=== PATIENT | male | born 1975 | race Caucasian/White ===

== ENCOUNTER 2020-04-11 13:06 | Outpatient (RCR) | payer OTHER, SELFPAY ==
[2020-01-12 12:21] LABS: INR 2.7; Prothrombin Time 28.2 Seconds (11.1-14.7)
[2020-04-08 13:21] LABS: INR 3.5; Prothrombin Time 34.9 Seconds (11.1-14.7)
[2020-04-11 14:09] LABS: INR 3.7; Prothrombin Time 36.4 Seconds (11.1-14.7)
== END 2020-04-11 23:59 | disposition home or self-care (01) ==
LOC: ANHLAB 13:06
DX: I48.20 Chronic atrial fibrillation, unspecified (principal)
CPT/HCPCS: 36415; 85610

== ENCOUNTER 2020-06-10 12:19 | Outpatient (CLI) | payer OTHER, SELFPAY ==
[2020-06-10 13:24] LABS: Basophils Percent Auto 0.3 % (0.2-1.2); Eosinophils Absolute Auto 0.1 K/mm3 (0-0.3); Eosinophils Percent Auto 1.1 % (0-4.4); Hematocrit 50.4 % (42.0-52.0); Hemoglobin 17.1 g/dL (14.0-18.0); Immature Granulocyte Absolute 0.02 K/mm3 (0.00-0.031); Immature Granulocyte Percent A 0.3 % (0-0.5); Immature Platelet Fraction Pct 6.7 % (0.9-11.2); Lymphocytes Absolute Auto 2.39 K/mm3 (0.9-3.2); Lymphocytes Percent Auto 36.3 % (18.3-44.2); Mean Corpuscular HGB Conc 33.9 g/dl (32-36); Mean Corpuscular Hemoglobin 29.7 pg (26-34); Mean Corpuscular Volume 87.5 fl (80-100); Mean Platelet Volume 11.7 fl (7.4-10.4); Monocytes Absolute Auto 0.5 K/mm3 (0.1-0.6); Monocytes Percent Auto 6.8 % (2.6-8.5); Neutrophils Absolute Auto 3.6 K/mm3 (1.3-6.7); Neutrophils Percent Auto 55.2 % (45.5-73.1); Platelet Count Result 141 k/mm3 (150-375); Red Blood Count 5.76 M/mm3 (4.6-6.20); Red Cell Distribution Width 12.8 % (11.5-14.5); White Blood Count 6.6 K/mm3 (4.5-10.0)
[2020-06-10 13:35] LABS: Alanine Aminotransferase 29 U/L (4-50); Albumin Level 4.3 g/dL (3.5-5.1); Alkaline Phosphatase 77 U/L (38-126); Anion Gap 6 mmol/L (8-16); Aspartate Amino Transferase 28 U/L (17-59); Bilirubin,Total 0.5 mg/dL (0.2-1.3); Blood Urea Nitrogen 16 mg/dL (9-20); Calcium 8.8 mg/dL (8.4-10.2); Carbon Dioxide 25 mmol/L (22-30); Chloride 108 mmol/L (98-107); Estimated Glomerular Filt Rate > 60; Glucose 89 mg/dL (75-110); Potassium 4.1 mmol/L (3.4-5.0); Sodium 139 mmol/L (137-145)
[2020-06-10 14:24] LABS: Free T4 Free Thyroxine 0.85 ng/mL (0.78-2.19); Vitamin D 25 Hydroxy 36.9 ng/mL
== END 2020-06-10 12:20 | disposition home or self-care (01) ==
DX: R53.83 Other fatigue (principal)
CPT/HCPCS: 36415; 80053; 82306; 84439; 84443; 85025; 85055

== ENCOUNTER 2020-06-30 14:27 | Outpatient (CLI) | payer OTHER, SELFPAY ==
[2020-06-30 15:10] LABS: Basophils Percent Auto 0.4 % (0.2-1.2); Eosinophils Absolute Auto 0.1 K/mm3 (0-0.3); Eosinophils Percent Auto 1.5 % (0-4.4); Hematocrit 47.3 % (42.0-52.0); Hemoglobin 16.4 g/dL (14.0-18.0); Immature Granulocyte Absolute 0.03 K/mm3 (0.00-0.031); Immature Granulocyte Percent A 0.4 % (0-0.5); Immature Platelet Fraction Pct 4.5 % (0.9-11.2); Lymphocytes Absolute Auto 2.59 K/mm3 (0.9-3.2); Lymphocytes Percent Auto 35.7 % (18.3-44.2); Mean Corpuscular HGB Conc 34.7 g/dl (32-36); Mean Corpuscular Volume 86.5 fl (80-100); Mean Platelet Volume 11.1 fl (7.4-10.4); Monocytes Absolute Auto 0.6 K/mm3 (0.1-0.6); Monocytes Percent Auto 7.6 % (2.6-8.5); Neutrophils Absolute Auto 3.9 K/mm3 (1.3-6.7); Neutrophils Percent Auto 54.4 % (45.5-73.1); Platelet Count Result 143 k/mm3 (150-375); Red Blood Count 5.47 M/mm3 (4.6-6.20); Red Cell Distribution Width 12.9 % (11.5-14.5); White Blood Count 7.3 K/mm3 (4.5-10.0)
== END 2020-06-30 14:28 | disposition home or self-care (01) ==
DX: D69.6 Thrombocytopenia, unspecified (principal)
CPT/HCPCS: 36415; 85025; 85055; 85610

== ENCOUNTER 2020-07-12 11:21 | Outpatient (RCR) | payer OTHER, SELFPAY ==
[2020-04-26 12:17] LABS: INR 3.3; Prothrombin Time 32.9 Seconds (11.1-14.7)
[2020-05-09 12:11] LABS: INR 2.5; Prothrombin Time 26.3 Seconds (11.1-14.7)
[2020-05-31 15:53] LABS: INR 2.6; Prothrombin Time 27.6 Seconds (11.1-14.7)
[2020-06-30 09:57] LABS: INR 1.7; Prothrombin Time 19.3 Seconds (11.1-14.7)
[2020-07-12 11:45] LABS: INR 2.2; Prothrombin Time 23.8 Seconds (11.1-14.7)
== END 2020-07-25 23:59 | disposition home or self-care (01) ==
LOC: ANHLAB 11:21
DX: I48.20 Chronic atrial fibrillation, unspecified (principal)
CPT/HCPCS: 36415; 85610

== ENCOUNTER 2020-07-14 15:44 | Outpatient (CLI) | payer OTHER, SELFPAY ==
[2020-07-14 16:00] LABS: Basophils Percent Auto 0.3 % (0.2-1.2); Eosinophils Absolute Auto 0.1 K/mm3 (0-0.3); Eosinophils Percent Auto 0.9 % (0-4.4); Hematocrit 49.5 % (42.0-52.0); Hemoglobin 17.1 g/dL (14.0-18.0); Immature Granulocyte Absolute 0.03 K/mm3 (0.00-0.031); Immature Granulocyte Percent A 0.4 % (0-0.5); Lymphocytes Absolute Auto 2.48 K/mm3 (0.9-3.2); Lymphocytes Percent Auto 32.6 % (18.3-44.2); Mean Corpuscular HGB Conc 34.5 g/dl (32-36); Mean Corpuscular Hemoglobin 29.5 pg (26-34); Mean Corpuscular Volume 85.3 fl (80-100); Mean Platelet Volume 10.7 fl (7.4-10.4); Monocytes Absolute Auto 0.5 K/mm3 (0.1-0.6); Monocytes Percent Auto 6.4 % (2.6-8.5); Neutrophils Absolute Auto 4.5 K/mm3 (1.3-6.7); Neutrophils Percent Auto 59.4 % (45.5-73.1); Platelet Count Result 143 k/mm3 (150-375); White Blood Count 7.6 K/mm3 (4.5-10.0)
[2020-07-14 16:57] LABS: Iron 86 ug/dL (49-181)
[2020-07-14 17:00] LABS: Alanine Aminotransferase 22 U/L (4-50); Albumin Level 4.2 g/dL (3.5-5.1); Alkaline Phosphatase 70 U/L (38-126); Anion Gap 10 mmol/L (8-16); Aspartate Amino Transferase 27 U/L (17-59); Bilirubin,Total 0.6 mg/dL (0.2-1.3); Blood Urea Nitrogen 19 mg/dL (9-20); Calcium 8.9 mg/dL (8.4-10.2); Carbon Dioxide 23 mmol/L (22-30); Chloride 109 mmol/L (98-107); Estimated Glomerular Filt Rate > 60; Glucose 96 mg/dL (75-110); Potassium 4.4 mmol/L (3.4-5.0); Sodium 142 mmol/L (137-145)
[2020-07-14 17:08] LABS: Percent Iron Saturation 26 % (20-50)
[2020-07-14 18:09] LABS: Folic Acid > 20.0 ng/mL (2.76->20)
== END 2020-07-14 15:45 | disposition home or self-care (01) ==
PROVIDERS: Visit Provider Internal Medicine Hematology & Oncology
DX: D69.59 Other secondary thrombocytopenia (principal)
CPT/HCPCS: 36415; 80053; 82607; 82728; 82746; 83540; 83550; 85025

== ENCOUNTER 2020-07-31 09:42 | Outpatient (CLI) | payer OTHER, SELFPAY ==
--- NOTE | ~2020-07-31 | US_ITS ---
EXAMINATION: US abdomen complete EXAM DATE: 07/31/2020 10:28 INDICATION: Secondary thrombocytopenia. TECHNIQUE: Multiple grayscale and Doppler images of the complete abdomen were obtained (by a technolo gist who performed the scan) and subsequently reviewed. There is no prior study for comparison. FINDINGS: Inferior vena cava and aorta are poorly visualized from overlying bowel gas. Pancreas is not visuali zed. Poorly evaluated liver, poor acoustic window. There are no focal liver lesions identified. There i s no evidence of intrahepatic biliary duct dilation. Portal venous flow was seen in the hepatopedal, normal direction and has normal Doppler waveform. Common bile duct measures 5 mm, which is normal. The gallbladder wall is normal in thickness, with ex pected amount of distention. No sonographic evidence of pericholecystic fluid. There is cholelithia sis. Technologist performing exam reports patient did not demonstrate sonographic Hanna's sign. P mary note that this sign is less reliable in patients who have received pain medication. Right kidney: There is normal contour and echogenicity. It measures 14.3 x 7.5 x 6.4 centimeters. There are no focal renal lesions identified. There is no hydronephrosis. Left kidney: There is normal contour and echogenicity. It measures 13.9 x 7.2 x 6.3 centimeters. T here are no focal renal lesions identified. There is no hydronephrosis. The spleen measures 14.5 centimeters, mildly enlarged. IMPRESSION: 1. Mild splenomegaly. Reviewed, dictated and finalized at location A. IMPRESSION: 1. Mild splenomegaly.
== END 2020-07-31 09:43 | disposition home or self-care (01) ==
PROVIDERS: PCP Nurse Practitioner Family; Visit Provider Internal Medicine Hematology & Oncology
DX: D68.59 Other primary thrombophilia (principal); R16.1 Splenomegaly, not elsewhere classified
CPT/HCPCS: 76700

== ENCOUNTER 2020-10-03 13:42 | Outpatient (RCR) | payer OTHER, SELFPAY ==
[2020-08-08 13:10] LABS: INR 1.8; Prothrombin Time 21.8 Seconds (11.1-14.7)
[2020-08-17 11:10] LABS: INR 1.9; Prothrombin Time 22.7 Seconds (11.1-14.7)
[2020-08-29 10:46] LABS: INR 2.3
[2020-10-03 14:23] LABS: INR 2.5; Prothrombin Time 27.3 Seconds (11.1-14.7)
== END 2020-11-06 23:59 | disposition home or self-care (01) ==
LOC: ANHLAB 13:42
PROVIDERS: PCP Nurse Practitioner Family; Visit Provider Nurse Practitioner Family
DX: I48.20 Chronic atrial fibrillation, unspecified (principal)
CPT/HCPCS: 36415; 85610

== ENCOUNTER 2021-02-02 16:01 | Outpatient (RCR) | payer OTHER, SELFPAY ==
[2020-11-15 10:33] LABS: INR 2.5; Prothrombin Time 27.4 Seconds (11.1-14.7)
[2020-12-16 17:12] LABS: INR 2.1; Prothrombin Time 24.2 Seconds (11.1-14.7)
[2021-02-02 17:25] LABS: Prothrombin Time 22.9 Seconds (11.1-14.7)
== END 2021-02-13 23:59 | disposition home or self-care (01) ==
LOC: ANHLAB 16:01
PROVIDERS: PCP Nurse Practitioner Family; Visit Provider Nurse Practitioner Family
DX: I48.20 Chronic atrial fibrillation, unspecified (principal)
CPT/HCPCS: 36415; 85610

== ENCOUNTER 2021-04-12 10:30 | Outpatient (RCR) | payer OTHER, SELFPAY ==
--- NOTE | 2021-02-22 11:06 | PTOPEVAL ---
Thank you for referring Franklin Bejarano to [facility].? The patient is scheduled to be seen for therapy? 2 x/week for 3-4 weeks. Please review, sign, date and return this plan of care KAMILLA. I agree with and certify that the following plan of care is medically necessary. Referring Physician Date Attending Provider: Amy Sharma, MEDICAL SUPERVISOR Diagnosis right and left shoulder pain Onset Oct 2020 Cause unknown Subjective Information He reports increased shoulder Query Text:As Reported By Patient/ pain and muscle soreness. He c Family /o su pec region tightness. He c/o dull pain. Denies any numbness/tingling into UE. He started a walking program in March 2020 of 1 mile 2-3x/wk. He is able to walk 3 miles. He performs lifting of groceries, but no formal weight training. He performs general stretching program. During the day he performs household personal assistant and shopping. Pain Assessment Self Report Pain Assessment Left Shoulder(s) Reported Pain Level 4 Pain Description Shooting,Tightness Pain Frequency Chronic Lowest Pain Intensity 0 Greatest Pain Intensity 4 Pain Aggravating Factors Exercise/Activity Pain Behaviors None Right Shoulder(s) Reported Pain Level 4 Pain Description Shooting,Tightness Pain Frequency Chronic,Intermittent Lowest Pain Intensity 0 Greatest Pain Intensity 6 Pain Aggravating Factors None,Exercise/Activity Upper Extremity Range of Motion Scapular/ Shoulder Range of Motion Left Shoulder Flexion - Active 160 Shoulder Extension - Active 40 Shoulder Abduction - Active 165 Shoulder Medial Rotation - Active 90 Shoulder Medial Rotation - Active T4 Shoulder Lateral Rotation - Active 40 Shoulder Lateral Rotation - Active T2 Right Shoulder Flexion - Active 168 Shoulder Extension - Active 55 Shoulder Abduction - Active 155 Shoulder Medial Rotation - Active 90 Shoulder Medial Rotation - Active T6 Shoulder Lateral Rotation - Active 60 Shoulder Lateral Rotation - Active T2 Scapular/Shoulder Range of Motion discomfort Comments Upper Extremity Muscle Strength Testing Scapular/Shoulder Left Scapular Retraction - Rhomboid 3 Fair Shoulder Flexion Strength 4 Good Shoulder Extension Strength 5 Normal Shoulder Abduction Strength 4+ Good + Shoulder Medial Rotation
--- NOTE | 2021-03-22 15:17 | PTOPEVAL ---
Thank you for referring Franklin Bejarano to [facility].? Franklin has received 6 therapy visits from 02/22/21 ot 03/22/21 to address his shoulder impairments. He has improved with his shoulder motion, pain and shoulder strength. He requires additional skilled therapy to improve tissue restriction, progress his HEP and improve scapular stability strength. His therapy goals are partially achieved at this time. The patient is scheduled to be seen for therapy? 1 x/week for 3 weeks. Please review, sign, date and return this plan of care KAMILLA. I agree with and certify that the following plan of care is medically necessary. Referring Physician Date Attending Provider: Amy Sharma, DUCT INSTALLER Diagnosis right and left shoulder pain Onset Oct 2020 Cause unknown Subjective Information He reports cont tightness of Query Text:As Reported By Patient/ chest muscles. He questions Family if his sleeping positions contribute to muscle pain. He will occasionally have numbness of left UE. He continues to have discomfort and tightness with reaching behind his back. He is performing his HEP a few time a week. He is performing his lifting techniques with better form. Pain Assessment Self Report Pain Assessment Left Shoulder(s) Reported Pain Level 1 Pain Description Aching,Soreness Lowest Pain Intensity 1 Greatest Pain Intensity 3 Right Shoulder(s) Reported Pain Level 0 Pain Description Soreness Pain Frequency Intermittent Lowest Pain Intensity 0 Greatest Pain Intensity 4 Upper Extremity Range of Motion Scapular/ Shoulder Range of Motion Left Shoulder Flexion - Active 178 Shoulder Extension - Active 50 Shoulder Abduction - Active 172 Shoulder Medial Rotation - Active 80 Shoulder Medial Rotation - Active T6 Query Text:Reach Behind the Back Shoulder Lateral Rotation - Active 62 Shoulder Lateral Rotation - Active T1 Query Text:Reach Behind the Head Right Shoulder Flexion - Active 175 Shoulder Extension - Active 50 Shoulder Abduction - Active 170 Shoulder Medial Rotation - Active 80 Shoulder Medial Rotation - Active T7 Query Text:Reach Behind the Back Shoulder Lateral Rotation - Active 78 Shoulder Lateral Rotation - Active T1 Query Text:Reach Behind the Head Scapular/Shoulder Range of Motion discomfort Comments Upper Extremity Muscle Strength Testing Scapular/Shoulder Left Scapular Retraction - Middle Trapezius 3 Fair Scapular Retraction - Lower Trapezius 3 Fair
--- NOTE | 2021-04-12 12:10 | PCPTNOTE ---
Admitting Provider: Attending Provider: Amy Sharma, [employer] WIREMAN Patient:Franklin Bejarano Date of :1975 Discharge Note Franklin has received 9 therapy visits from 03/07/21 to 04/12/21 to address his shoulder pain. He demonstrates normal shoulder motion and strength without increased pain. He is able to perform his normal daily task without changes in his pain. He demonstrates poor compliance with performing his HEP and poor compliance with proper body mechanics. He has partially achieved his therapy goals at this time due to poor compliance. He has reached maximal potential with skilled therapy services at this time. Will DC skilled therapy with recommendations for him to consistently perform his HEP to improve scapular stability. Thank you for referring this patient to [facility]. Please review, sign, date and return this discharge summary KAMILLA. I have been updated about the patient's current status and I agree with discharge from the above service at this time. Referring Physician Date
== END 2021-04-20 16:54 | disposition home or self-care (01) ==
LOC: ANHPT 10:30
PROVIDERS: PCP Nurse Practitioner Family; Visit Provider Nurse Practitioner Family
DX: M25.511 Pain in right shoulder (principal)
CPT/HCPCS: 36415; 80076; 85610; 97110; 97140; 97161

== ENCOUNTER 2021-04-12 11:27 | Outpatient (CLI) | payer OTHER, SELFPAY ==
[2021-04-12 12:06] LABS: Alanine Aminotransferase 22 U/L (4-50); Albumin Level 4.2 g/dL (3.5-5.1); Alkaline Phosphatase 75 U/L (38-126); Aspartate Amino Transferase 26 U/L (17-59); Bilirubin,Total 0.4 mg/dL (0.2-1.3)
== END 2021-04-12 11:28 | disposition home or self-care (01) ==
PROVIDERS: PCP Nurse Practitioner Family
DX: B35.1 Tinea unguium (principal)
CPT/HCPCS: 36415; 80076

== ENCOUNTER 2021-05-02 11:49 | Outpatient (RCR) | payer OTHER, SELFPAY ==
[2021-03-01 12:39] LABS: INR 2.6; Prothrombin Time 28.1 Seconds (11.1-14.7)
[2021-03-29 12:58] LABS: INR 2.1; Prothrombin Time 24.4 Seconds (11.1-14.7)
[2021-05-02 12:28] LABS: INR 1.9; Prothrombin Time 21.4 Seconds (11.1-14.7)
== END 2021-05-30 23:59 | disposition home or self-care (01) ==
LOC: ANHLAB 11:49
PROVIDERS: PCP Nurse Practitioner Family; Visit Provider Nurse Practitioner Family
DX: I48.91 Unspecified atrial fibrillation (principal)
CPT/HCPCS: 36415; 85610

== ENCOUNTER 2021-07-01 12:15 | Emergency (ER) | payer OTHER, SELFPAY ==
[2021-07-01 12:20] VITALS: BP 113/77; PULSE 79; RESP 20; TEMP 36.7; O2SAT 98
--- NOTE | 2021-07-01 12:59 | ED.SKABFB ---
HPI - Skin/Abscess/Foreign Bdy General Chief complaint: Skin/Abscess/Foreign Body Stated complaint: Skin complaint Time Seen by Provider: 07/01/21 12:46 History of Present Illness HPI narrative: Patient presents today complaining of, white spots and bruising to the left ankle that he noticed yesterday. Patient has an extensive history of swelling and venous stasis to the lower legs with A. fib and warfarin use as well as varicose veins. He also has history of DVT in 2013 in the right leg. He stands for several hours at a time while working at [employer]. He does wear compression stockings as directed by his vein doctor. MD complaint: rash Related Data Home Medications Medication Instructions Recorded Confirmed cetirizine mg 07/01/21 folic acid 07/01/21 lisinopril 07/01/21 metoprolol tartrate 07/01/21 terbinafine HCl mg 07/01/21 topiramate 07/01/21 warfarin 07/01/21 warfarin 07/01/21 Allergies Allergy/AdvReac Type Severity Reaction Status Date / Time No Known Allergies Allergy Unknown Unverified 07/01/21 12:41 Review of Systems Review of Systems: CONSTITUTIONAL: Denies body aches, fever, chills, or sweats. EYES: Denies visual changes, redness, or discharge. ENT: Denies rhinorrhea, congestion, sore throat, or otalgia. CARDIOVASCULAR: Denies chest pain, palpitations, or edema. RESPIRATORY: Denies cough or dyspnea. GASTROINTESTINAL: Denies abdominal pain, nausea, vomiting, or diarrhea. GENITOURINARY: Denies dysuria or hematuria. SKIN: Denies itching, or wounds.+ Rash to left ankle MUSCULOSKELETAL: Denies back pain, joint pain, or myalgia. NEUROLOGIC: Denies headache, numbness, tingling, or weakness. PSYCH: Denies depression or anxiety. [facility] Past Medical History Medical History (Updated 07/01/21 @ 13:07 by Brenda Fairchild, [facility], ) A-fib History of DVT (deep vein thrombosis) Hypertension Varicose veins of bilateral lower extremities with other complications Comments At time of signature, I have reviewed and agree with nursing past medical, surgical, social and family history unless otherwise noted. Please see nursing chart for further information. There is no relevant family history pertinent to the presenting complaint Exam Narrative: GENERAL: Well-appearing, over-nourished, and in no acute distress. HEAD: Normocephalic, atraumatic. EYES: EOMI. No redness or drainage. Conjunctivae normal. ENT: Mucous membranes pink and moist. NECK: Normal AROM. CHEST: No respiratory distress. EXTREMITIES: Normal range of motion. Left le cm round area of ecchymosis to the inner left ankle, overlying some varicose veins. The overlying, skin colored varicose veins are the, white spots that the patient was referring to. The ecchymosis is nontender. The ankle does not seem edematous at this time. The foot is not edematous. There is some venous stasis changes to the lower leg chronically. No wounds or areas of bacterial infection noted. Distal sensation intact. Capillary refill normal. Pulse normal. Right lower leg also has venous stasis changes chronically. SKIN: Warm, dry, no rash. Capillary refill normal. Normal skin turgor. NEURO: No focal deficits. Alert and oriented x3. Gait steady. PSYCH: Normal affect. No signs of depression or anxiety. Course Vital Signs Vital signs: Vital Signs Temperature 98.1 F 07/01/21 12:20 Pulse Rate 79 07/01/21 12:20 Respiratory Rate 20 07/01/21 12:20 Blood Pressure 113/77 07/01/21 12:20 Pulse Oximetry 98 07/01/21 12:20 Temperature 98.1 F 07/01/21 12:20 Pulse Rate 79 07/01/21 12:20 Respiratory Rate 20 07/01/21 12:20 Blood Pressure 113/77 07/01/21 12:20 Pulse Oximetry 98 07/01/21 12:20 Reviewed MDM - Skin/Abscess/Foreign Bdy Differential Diagnosis Differential diagnosis: Likely dermatophytosis, cellulitis, impetigo, contact dermatitis and other (Contusion, ecchymosis, petechiae, varicose vein) Critical
== END 2021-07-01 13:10 | disposition home or self-care (01) ==
PROVIDERS: Emergency Provider Nurse Practitioner; PCP Nurse Practitioner Family
DX: S90.02XA Contusion of left ankle, initial encounter (principal); I48.91 Unspecified atrial fibrillation; I10 Essential (primary) hypertension; Z86.718 Personal history of other venous thrombosis and embolism; Z79.01 Long term (current) use of anticoagulants; X58.XXXA Exposure to other specified factors, initial encounter
CPT/HCPCS: 99212; G0463

== ENCOUNTER 2021-08-17 13:09 | Outpatient (RCR) | payer OTHER, SELFPAY ==
[2021-06-01 13:58] LABS: Prothrombin Time 22.6 Seconds (11.1-14.7)
[2021-07-21 15:54] LABS: INR 1.8; Prothrombin Time 20.9 Seconds (11.1-14.7)
[2021-08-17 13:55] LABS: INR 1.6; Prothrombin Time 18.9 Seconds (11.1-14.7)
== END 2021-08-30 23:59 | disposition home or self-care (01) ==
LOC: ANHLAB 13:09
PROVIDERS: PCP Nurse Practitioner Family; Visit Provider Nurse Practitioner Family
DX: I48.91 Unspecified atrial fibrillation (principal)
CPT/HCPCS: 36415; 85610

== ENCOUNTER 2021-08-17 13:10 | Outpatient (CLI) | payer OTHER, SELFPAY ==
[2021-08-17 13:58] LABS: Alanine Aminotransferase 18 U/L (4-50); Albumin Level 3.9 g/dL (3.5-5.1); Alkaline Phosphatase 65 U/L (38-126); Aspartate Amino Transferase 25 U/L (17-59); Bilirubin,Total 0.4 mg/dL (0.2-1.3)
== END 2021-08-17 13:11 | disposition home or self-care (01) ==
LOC: ANHLAB 13:18
PROVIDERS: PCP Nurse Practitioner Family
DX: B35.1 Tinea unguium (principal)
CPT/HCPCS: 36415; 80076; 85610

== ENCOUNTER 2021-10-26 13:53 | Outpatient (RCR) | payer OTHER, SELFPAY ==
[2021-09-05 13:09] LABS: INR 2.3; Prothrombin Time 24.5 Seconds (11.1-14.7)
[2021-10-26 14:26] LABS: INR 2.5; Prothrombin Time 26.5 Seconds (11.1-14.7)
== END 2021-11-23 10:31 | disposition home or self-care (01) ==
LOC: ANHLAB 13:53
PROVIDERS: PCP Nurse Practitioner Family; Visit Provider Nurse Practitioner Family
DX: I48.91 Unspecified atrial fibrillation (principal)
CPT/HCPCS: 36415; 85610

== ENCOUNTER 2021-11-23 10:32 | Outpatient (RCR) | payer OTHER, SELFPAY ==
[2021-11-23 11:40] LABS: INR 2.4; Prothrombin Time 25.4 Seconds (11.1-14.7)
== END 2022-02-21 23:59 | disposition home or self-care (01) ==
LOC: ANHLAB 10:32
PROVIDERS: PCP Nurse Practitioner Family; Visit Provider Specialist
DX: Z51.81 Encounter for therapeutic drug level monitoring (principal); I48.91 Unspecified atrial fibrillation; Z79.01 Long term (current) use of anticoagulants
CPT/HCPCS: 36415; 85610

== ENCOUNTER 2022-06-04 13:53 | Outpatient (RCR) | payer OTHER, SELFPAY ==
[2022-03-08 15:24] LABS: Prothrombin Time 21.8 Seconds (11.1-14.7)
[2022-04-03 11:39] LABS: INR 2.1; Prothrombin Time 23.2 Seconds (11.1-14.7)
[2022-04-03 11:52] LABS: Digoxin 0.8 ng/mL (0.8-2.0)
[2022-05-10 15:01] LABS: INR 1.6; Prothrombin Time 18.5 Seconds (11.1-14.7)
[2022-05-18 14:55] LABS: Digoxin 0.8 ng/mL (0.8-2.0); INR 2.1; Prothrombin Time 22.9 Seconds (11.1-14.7)
[2022-06-04 14:17] LABS: INR 2.3; Prothrombin Time 24.9 Seconds (11.1-14.7)
== END 2022-06-06 23:59 | disposition home or self-care (01) ==
LOC: ANHLAB 13:53
PROVIDERS: PCP Nurse Practitioner Family; Visit Provider Specialist
DX: Z51.81 Encounter for therapeutic drug level monitoring (principal); I48.91 Unspecified atrial fibrillation; Z79.01 Long term (current) use of anticoagulants
CPT/HCPCS: 36415; 80162; 85610

== ENCOUNTER 2022-07-04 14:17 | Outpatient (CLI) | payer OTHER, SELFPAY ==
[2022-07-04 15:05] LABS: Basophils Percent Auto 0.4 % (0.2-1.2); Eosinophils Absolute Auto 0.1 K/mm3 (0-0.3); Eosinophils Percent Auto 1.4 % (0-4.4); Hematocrit 47.3 % (42.0-52.0); Hemoglobin 16.2 g/dL (14.0-18.0); Immature Granulocyte Absolute 0.09 K/mm3 (0.00-0.031); Immature Granulocyte Percent A 1.2 % (0-0.5); Lymphocytes Absolute Auto 2.25 K/mm3 (0.9-3.2); Lymphocytes Percent Auto 29.5 % (18.3-44.2); Mean Corpuscular HGB Conc 34.2 g/dl (32-36); Mean Corpuscular Hemoglobin 29.7 pg (26-34); Mean Corpuscular Volume 86.8 fl (80-100); Mean Platelet Volume 10.7 fl (7.4-10.4); Monocytes Absolute Auto 0.5 K/mm3 (0.1-0.6); Monocytes Percent Auto 6.6 % (2.6-8.5); Neutrophils Absolute Auto 4.6 K/mm3 (1.3-6.7); Neutrophils Percent Auto 60.9 % (45.5-73.1); Platelet Count Result 143 k/mm3 (150-375); Red Blood Count 5.45 M/mm3 (4.6-6.20); White Blood Count 7.6 K/mm3 (4.5-10.0)
== END 2022-07-04 14:18 | disposition home or self-care (01) ==
LOC: ANHLAB 14:18
PROVIDERS: PCP Nurse Practitioner Family; Visit Provider Nurse Practitioner Family
DX: D69.6 Thrombocytopenia, unspecified (principal)
CPT/HCPCS: 36415; 85025; 85610

== ENCOUNTER 2022-08-07 12:48 | Outpatient (RCR) | payer OTHER, SELFPAY ==
[2022-07-04 15:17] LABS: INR 3.5; Prothrombin Time 34.2 Seconds (11.1-14.7)
[2022-07-13 13:10] LABS: INR 4.6; Prothrombin Time 42.4 Seconds (11.1-14.7)
[2022-07-23 16:35] LABS: INR 3.8
[2022-08-07 13:14] LABS: INR 2.9
== END 2022-10-02 23:59 | disposition home or self-care (01) ==
LOC: ANHLAB 12:48
PROVIDERS: PCP Nurse Practitioner Family; Visit Provider Specialist
DX: Z51.81 Encounter for therapeutic drug level monitoring (principal); I48.91 Unspecified atrial fibrillation; Z79.01 Long term (current) use of anticoagulants
CPT/HCPCS: 36415; 85610

== ENCOUNTER 2022-11-22 13:52 | Outpatient (RCR) | payer OTHER, SELFPAY ==
[2022-10-17 13:00] LABS: INR 2.6; Prothrombin Time 26.9 Seconds (11.1-14.7)
[2022-11-22 14:43] LABS: INR 2.5; Prothrombin Time 26.2 Seconds (11.1-14.7)
== END 2023-01-15 23:59 | disposition home or self-care (01) ==
LOC: ANHLAB 13:52
PROVIDERS: PCP Nurse Practitioner Family; Visit Provider Specialist
DX: Z51.81 Encounter for therapeutic drug level monitoring (principal); I48.91 Unspecified atrial fibrillation; Z79.01 Long term (current) use of anticoagulants
CPT/HCPCS: 36415; 85610

== ENCOUNTER 2023-02-11 13:34 | Outpatient (RCR) | payer OTHER, SELFPAY ==
[2022-12-17 16:15] LABS: INR 1.8; Prothrombin Time 19.8 Seconds (11.1-14.7)
[2023-01-17 11:32] LABS: INR 1.7; Prothrombin Time 19.7 Seconds (11.1-14.7)
[2023-01-29 15:37] LABS: INR 1.7; Prothrombin Time 19.6 Seconds (11.1-14.7)
[2023-02-11 14:20] LABS: INR 2.5; Prothrombin Time 28.5 Seconds (11.1-14.7)
== END 2023-03-17 23:59 | disposition home or self-care (01) ==
LOC: ANHLAB 13:34
PROVIDERS: PCP Nurse Practitioner Family; Visit Provider Specialist
DX: Z51.11 Encounter for antineoplastic chemotherapy (principal); I48.91 Unspecified atrial fibrillation; Z79.01 Long term (current) use of anticoagulants
CPT/HCPCS: 36415; 85610

== ENCOUNTER 2023-03-03 18:57 | Emergency (ER) | payer OTHER, SELFPAY ==
[2023-03-03 19:02] VITALS: BP 126/87; PULSE 95; RESP 16; TEMP 36.6; O2SAT 98
--- NOTE | 2023-03-03 19:03 | ED.URI ---
HPI - URI/Sore Throat General Chief Complaint: Upper Respiratory Infection Stated Complaint: Sore Throat/Headache Source: patient and RN notes reviewed History of Present Illness HPI Narrative: 47 yo M presents to urgent care with complaints of congestion, runny nose, PETTY, head pressure, and fatigue x 3 days. Pt states he believes he had the chills the other night. Pt reports a sore throat. Denies any ear pain, chest pain, SOB, vomiting, diarrhea, or dysuria. Pt has been drinking lots of fluids at home and taking Robitussin with no relief. Related Data Home Medications Medication Instructions Recorded Confirmed cetirizine 10 mg tablet 10 mg PO DAILY 07/01/21 03/03/23 folic acid 1 mg tablet 1 mg PO DAILY 07/01/21 03/03/23 lisinopril 5 mg tablet 5 mg PO DAILY 07/01/21 03/03/23 metoprolol tartrate 50 mg tablet 50 mg PO BID 07/01/21 03/03/23 terbinafine HCl 250 mg tablet 250 mg PO DAILY 07/01/21 03/03/23 topiramate 100 mg tablet 100 mg PO BID 07/01/21 03/03/23 warfarin 1 mg tablet 1 mg PO DAILY 07/01/21 03/03/23 warfarin 5 mg tablet 15 mg PO DAILY 07/01/21 03/03/23 Allergies Allergy/AdvReac Type Severity Reaction Status Date / Time No Known Allergies Allergy Unknown Unverified 03/03/23 19:18 Review of Systems Review of Systems: Pertinent positives and pertinent negatives per HPI. [facility] Past Medical History Medical History (Updated 03/03/23 @ 19:38 by Marielena De La O, DAVID) A-fib History of DVT (deep vein thrombosis) Hypertension Varicose veins of bilateral lower extremities with other complications Comments At the time of my signature, I reviewed and agree with the nursing past medical, surgical, social, and family history. There is no relevant family history pertinent to the patient complaint. Exam Narrative: GENERAL: This is a well-nourished, well-developed patient, in no apparent distress. HEAD: normocephalic, atraumatic. EYES: Sclera clear/white. Vision is grossly intact. EARS: External ears normal, auditory canals clear and without drainage, TMs normal without perforation. Hearing grossly intact. NOSE: External nose normal with no obvious nasal discharge, nares without redness, no rhinorrhea. THROAT: Mucous membranes moist, posterior pharynx clear. NECK: Neck supple, non-tender with mild lymphadenopathy. no masses or thyromegaly. CARDIOVASCULAR: Regular rate RESPIRATORY: No respiratory distress SKIN: warm, intact with no suspicious lesions or rash, good texture and turgor. NEURO: awake, alert, and oriented to person, place and time. There were no obvious focal neurologic abnormalities. EXTREMITIES: No clubbing, cyanosis, or edema. No joint tenderness, effusion, or edema noted. BACK: Nontender without deformity or crepitus. No flank tenderness. Course Course Level of Care: Express Care Visit Vital Signs Vital signs: Vital Signs Temperature 97.8 F 03/03/23 19:02 Pulse Rate 95 03/03/23 19:02 Respiratory Rate 16 03/03/23 19:02 Blood Pressure 126/87 03/03/23 19:02 Pulse Oximetry 98 03/03/23 19:02 Oxygen Delivery Room Air 03/03/23 19:02 Temperature 97.8 F 03/03/23 19:02 Pulse Rate 95 03/03/23 19:02 Respiratory Rate 16 03/03/23 19:02 Blood Pressure 126/87 03/03/23 19:02 Pulse Oximetry 98 03/03/23 19:02 Oxygen Delivery Room Air 03/03/23 19:02 Reviewed. MDM - URI/Sore Throat MDM Narrative Medical decision making narrative: Viral illness may last between 7-12days; antibiotic is NOT recommended at this time. Recommend antihistamine such as Benadryl at night time and Claritin/Zyrtec/Elsa during the day. Increase your Vitamin C intake. Use inhaler as needed for cough, wheezing, shortness of breath or chest tightness. Also, recommend symptomatic treatment includes: rest, fluids, increase humidity of the air at home with a humidifier in the bedroom. Recommend Acetaminophen or nonsteroidal anti-inflammatory agents(NSAIDs) as directed in the bottle to
== END 2023-03-03 19:40 | disposition home or self-care (01) ==
PROVIDERS: Emergency Provider Nurse Practitioner Family
DX: J06.9 Acute upper respiratory infection, unspecified (principal); Z20.822 Contact with and (suspected) exposure to COVID-19; I48.91 Unspecified atrial fibrillation; I10 Essential (primary) hypertension; Z86.718 Personal history of other venous thrombosis and embolism; I83.93 Asymptomatic varicose veins of bilateral lower extremities; Z79.01 Long term (current) use of anticoagulants
CPT/HCPCS: 87081; 87426; 87880; 99213; C9803; G0463

== ENCOUNTER 2023-05-31 12:58 | Outpatient (RCR) | payer OTHER, SELFPAY ==
[2023-03-22 16:33] LABS: INR 2.3; Prothrombin Time 27.1 Seconds (11.1-14.7)
[2023-04-16 16:20] LABS: INR 2.1; Prothrombin Time 25.3 Seconds (11.1-14.7)
[2023-05-31 13:32] LABS: INR 2.2
== END 2023-06-20 23:59 | disposition home or self-care (01) ==
LOC: ANHLAB 12:58
PROVIDERS: Visit Provider Specialist
DX: Z51.81 Encounter for therapeutic drug level monitoring (principal); I48.91 Unspecified atrial fibrillation; Z79.01 Long term (current) use of anticoagulants
CPT/HCPCS: 36415; 85610

== ENCOUNTER 2023-08-27 13:53 | Outpatient (RCR) | payer OTHER, SELFPAY ==
[2023-07-05 13:06] LABS: INR 1.9; Prothrombin Time 22.6 Seconds (11.1-14.7)
[2023-07-05 13:07] LABS: Alanine Aminotransferase 27 U/L (6-50); Albumin Level 4.1 g/dL (3.5-5.1); Alkaline Phosphatase 74 U/L (38-126); Anion Gap 6 mmol/L (8-16); Aspartate Amino Transferase 28 U/L (17-59); Bilirubin,Total 0.6 mg/dL (0.2-1.3); Blood Urea Nitrogen 13 mg/dL (9-20); Calcium 8.2 mg/dL (8.4-10.2); Carbon Dioxide 24 mmol/L (22-30); Chloride 110 mmol/L (98-107); Cholesterol 124 mg/dL (0-200); Estimated Glomerular Filt Rate > 60; Glucose 116 mg/dL (65-110); HDL Direct 21 mg/dL; Potassium 4.2 mmol/L (3.4-5.0); Sodium 140 mmol/L (137-145); Triglycerides 170 mg/dL (<150)
[2023-07-05 13:09] LABS: Hemoglobin A1C 5.8 % (<5.7)
[2023-07-05 13:18] LABS: LDL Cholesterol Direct 78 mg/dL
[2023-08-27 15:05] LABS: INR 1.8; Prothrombin Time 22.2 Seconds (11.1-14.7)
== END 2023-10-03 23:59 | disposition home or self-care (01) ==
LOC: ANHLAB 13:53
PROVIDERS: Visit Provider Specialist
DX: Z51.81 Encounter for therapeutic drug level monitoring (principal); I48.91 Unspecified atrial fibrillation; Z79.01 Long term (current) use of anticoagulants
CPT/HCPCS: 36415; 80053; 80061; 83036; 84443; 85610

== ENCOUNTER 2024-01-03 14:45 | Outpatient (CLI) | payer OTHER, SELFPAY ==
[2024-01-03 15:56] LABS: Alanine Aminotransferase 28 U/L (6-50); Albumin Level 4.1 g/dL (3.5-5.1); Alkaline Phosphatase 74 U/L (38-126); Anion Gap 4 mmol/L (4-12); Aspartate Amino Transferase 28 U/L (17-59); Bilirubin,Total 0.8 mg/dL (0.2-1.3); Blood Urea Nitrogen 14 mg/dL (9-20); Calcium 8.8 mg/dL (8.4-10.2); Carbon Dioxide 23 mmol/L (22-30); Chloride 111 mmol/L (98-107); Cholesterol 119 mg/dL (0-200); Estimated Glomerular Filt Rate > 60; Glucose 102 mg/dL (65-110); HDL Direct 20 mg/dL; Potassium 3.7 mmol/L (3.4-5.0); Sodium 138 mmol/L (137-145); Triglycerides 208 mg/dL (<150)
[2024-01-03 16:06] LABS: LDL Cholesterol Direct 84 mg/dL
[2024-01-03 17:52] LABS: Hemoglobin A1C 6.1 % (<5.7)
== END 2024-01-03 14:46 | disposition home or self-care (01) ==
LOC: ANHLAB 14:47
PROVIDERS: PCP Nurse Practitioner Family; Visit Provider Nurse Practitioner Family
DX: E66.01 Morbid (severe) obesity due to excess calories (principal)
CPT/HCPCS: 36415; 80053; 80061; 83036; 84443; 85610

== ENCOUNTER 2024-01-16 09:22 | Outpatient (CLI) | payer OTHER, SELFPAY ==
--- NOTE | ~2024-01-16 | US_ITS ---
EXAMINATION: US venous doppler LE RT DATE: 01/16/2024 11:29 INDICATION: Right lower limb swelling. Right lower limb paresthesias. TECHNIQUE: Grayscale ultrasound images without and with compression and Doppler ultrasound images of the right lower extremity veins were obtained. COMPARISON: None. FINDINGS: The visualized portions of right common femoral vein, profunda (deep) femoral vein, femoral vein, pop liteal vein, peroneal veins, posterior tibial veins, and greater saphenous vein outflow are patent. IMPRESSION: 1. No deep venous thrombosis. Reviewed, dictated and finalized at location A.
--- NOTE | ~2024-01-16 | US_ITS ---
EXAMINATION: US art doppler w press LE BI DATE: 01/16/2024 11:29 INDICATION: Paresthesia of lower extremity. TECHNIQUE: Segmental pressures and plethysmographic and Doppler waveforms of the brachial and lower e xtremity arteries were obtained. COMPARISON: None. FINDINGS: Right and left brachial artery pressures of 106 mm Hg and 118 mm Hg, respectively, are concordant (no rmal difference <= 30 mmHg). The right ankle-brachial index (CHELY) is 1.30 (normal >= 0.9-1.0). The right great toe-brachial index (TBI) is 0.7 (normal >= 0.65). Arterial Doppler waveforms are at least triphasic in common femoral ar keegan, superficial femoral artery, popliteal artery at least biphasic at the ankle. The left CHELY is 1.25. The left TBI is 1.09. Arterial Doppler waveforms are at least triphasic in comm on femoral artery and superficial femoral artery at least biphasic in popliteal artery and at the ank le. IMPRESSION: 1. No significant arterial occlusive disease. Reviewed, dictated and finalized at location A.
== END 2024-01-16 09:23 | disposition home or self-care (01) ==
LOC: ANHIMG 09:38
PROVIDERS: PCP Nurse Practitioner Family; Visit Provider Nurse Practitioner Family
DX: R20.2 Paresthesia of skin (principal)
CPT/HCPCS: 93923; 93971

== ENCOUNTER 2024-02-03 09:42 | Outpatient (CLI) | payer OTHER, SELFPAY ==
[2024-02-03 11:20] LABS: Folic Acid > 20.0 ng/mL (2.76->20)
== END 2024-02-03 09:43 | disposition home or self-care (01) ==
PROVIDERS: PCP Nurse Practitioner Family; Visit Provider Nurse Practitioner Family
DX: G62.9 Polyneuropathy, unspecified (principal)
CPT/HCPCS: 36415; 82607; 82746; 85610

== ENCOUNTER 2024-03-23 14:17 | Outpatient (RCR) | payer OTHER, SELFPAY ==
[2024-01-03 15:51] LABS: INR 2.1; Prothrombin Time 24.8 Seconds (11.1-14.7)
[2024-02-03 10:20] LABS: INR 1.8; Prothrombin Time 21.8 Seconds (11.1-14.7)
[2024-03-23 15:23] LABS: INR 2.1; Prothrombin Time 23.9 Seconds (11.1-14.7)
== END 2024-04-02 23:59 | disposition home or self-care (01) ==
LOC: ANHLAB 14:17
PROVIDERS: PCP Nurse Practitioner Family; Visit Provider Specialist
DX: Z51.81 Encounter for therapeutic drug level monitoring (principal); I48.91 Unspecified atrial fibrillation; Z79.01 Long term (current) use of anticoagulants
CPT/HCPCS: 36415; 85610

== ENCOUNTER 2024-04-15 10:43 | Emergency (ER) | payer OTHER, SELFPAY ==
[2024-04-15 11:02] VITALS: BP 119/68; PULSE 77; RESP 16; TEMP 36.3; O2SAT 99
--- NOTE | 2024-04-15 11:12 | ED.SKABFB ---
HPI - Skin/Abscess/Foreign Bdy General Chief complaint: Skin/Abscess/Foreign Body Stated complaint: Right side bite or boil Time Seen by Provider: 04/15/24 11:45 Source: patient, family, RN notes reviewed and old records reviewed Mode of arrival: ambulatory Limitations: no limitations History of Present Illness HPI narrative: 48 year old male accompanied by with complaints of either a bug bite abscess to the right side of his abdomen which he noticed yesterday. He reports no fevers or states intermittently pain to site, is tender to palpation. Patient reports that he has applied some triple antibiotic ointment.Patient is on blood thinners daily Coumadin. MD complaint: abscess/boil Onset (ago): day(s) (2 ) Severity: mild Treatments prior to arrival: OTC topical medication Related Data Home Medications Medication Instructions Recorded Confirmed cetirizine 10 mg tablet 10 mg PO DAILY 07/01/21 03/03/23 folic acid 1 mg tablet 1 mg PO DAILY 07/01/21 03/03/23 lisinopril 5 mg tablet 5 mg PO DAILY 07/01/21 03/03/23 metoprolol tartrate 50 mg tablet 50 mg PO BID 07/01/21 03/03/23 terbinafine HCl 250 mg tablet 250 mg PO DAILY 07/01/21 03/03/23 topiramate 100 mg tablet 100 mg PO BID 07/01/21 03/03/23 warfarin 1 mg tablet 1 mg PO DAILY 07/01/21 03/03/23 warfarin 5 mg tablet 15 mg PO DAILY 07/01/21 03/03/23 Adults Multivitamin 04/15/24 Calcium 04/15/24 ascorbate calcium (vitamin C) 04/15/24 cholecalciferol (vitamin D3) 04/15/24 digoxin 250 mcg (0.25 mg) tablet 04/15/24 fluticasone propionate 50 intranasal 04/15/24 mcg/actuation nasal spray,suspension Allergies Allergy/AdvReac Type Severity Reaction Status Date / Time No Known Allergies Allergy Unknown Unverified 04/15/24 10:58 Review of Systems Review of Systems: CONSTITUTIONAL: Denies fever, chills, or sweats. CARDIOVASCULAR: Denies chest pain, palpitations, or edema. RESPIRATORY: Denies cough or dyspnea. GASTROINTESTINAL: Denies abdominal pain, nausea, vomiting SKIN: Reports 1.5 cm diameter red raised lesion with warmth to right side of abdomen, Denies purulent drainage,has small darkened center MUSCULOSKELETAL: Denies myalgia. 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 There is no relevant family history pertinent to the presenting complaint Exam Narrative: GENERAL: Well-appearing, well-nourished, and in no acute distress. HEAD: Normocephalic, atraumatic. EYES: PERRLA and EOMI. ENT: Nares clear, no rhinorrhea or epistaxis. Mucous membranes moist. NECK: Supple.no lymphadenopathy CHEST: Clear to auscultation. No respiratory distress. SAO2 99% on room air HEART: Regular rate and rhythm. No murmur heard. Normal peripheral pulses. ABDOMEN: Soft, nontender, nondistended, normal active bowel sounds. EXTREMITIES: Normal range of motion. No edema. SKIN: Warm, dry. Erythema, induration, tenderness, warmth raised circular lesion on right side of abdomen. No vesicles or any drainage from site. NEURO: No focal deficits. Alert and oriented x3. Course Course Emergency Course: Patient is aw
== END 2024-04-15 12:26 | disposition home or self-care (01) ==
PROVIDERS: Emergency Provider Registered Nurse; PCP Nurse Practitioner Family
DX: L02.211 Cutaneous abscess of abdominal wall (principal); I48.91 Unspecified atrial fibrillation; I42.9 Cardiomyopathy, unspecified; Z86.718 Personal history of other venous thrombosis and embolism; I10 Essential (primary) hypertension; Z79.01 Long term (current) use of anticoagulants
CPT/HCPCS: 99213; G0463

== ENCOUNTER 2024-05-30 12:26 | Emergency (ER) | payer OTHER, SELFPAY ==
[2024-05-30 12:32] VITALS: BP 114/72; PULSE 61; RESP 20; TEMP 36.7; O2SAT 97
--- NOTE | 2024-05-30 13:13 | ED.GENADULT ---
HPI - General Adult General Chief complaint: Upper Respiratory Infection Stated complaint: throat/congestion/headaches Time Seen by Provider: 05/30/24 13:00 Source: patient, RN notes reviewed and old records reviewed Mode of arrival: ambulatory Limitations: no limitations History of Present Illness HPI narrative: 48 year old male presents to [facility] with complaints of cough and congestion since Saturday with no known fevers. Patient reports that he has had head congestion, headache. fatigue,post nasal drainage, sore throat, and he has had cough with a little wheezing and some dyspnea. Patient reports that he has increased his oral fluids and he has taken Mucinex, and also some Robitussin for his symptoms. MD complaint: cough, sore throat, headache,fatigue alittle wheezing and dyspnea Onset (ago): day(s) (4) Severity scale (1-10): 4 Treatments prior to arrival: other (Fluids, Mucinex and Robitussin) Related Data Home Medications Medication Instructions Recorded Confirmed cetirizine 10 mg tablet 10 mg PO DAILY 07/01/21 05/30/24 folic acid 1 mg tablet 1 mg PO DAILY 07/01/21 05/30/24 lisinopril 5 mg tablet 5 mg PO DAILY 07/01/21 05/30/24 metoprolol tartrate 50 mg tablet 50 mg PO BID 07/01/21 05/30/24 terbinafine HCl 250 mg tablet 250 mg PO DAILY 07/01/21 05/30/24 topiramate 100 mg tablet 100 mg PO BID 07/01/21 05/30/24 warfarin 1 mg tablet 1 mg PO DAILY 07/01/21 05/30/24 warfarin 5 mg tablet 15 mg PO DAILY 07/01/21 05/30/24 Adults Multivitamin See Rx Instructions .Route .COMPLEX 04/15/24 05/30/24 Calcium See Rx Instructions .Route .COMPLEX 04/15/24 05/30/24 ascorbate calcium (vitamin C) See Rx Instructions .Route .COMPLEX 04/15/24 05/30/24 cholecalciferol (vitamin D3) See Rx Instructions .Route .COMPLEX 04/15/24 05/30/24 digoxin 250 mcg (0.25 mg) tablet 250 mcg PO DAILY 04/15/24 05/30/24 fluticasone propionate 50 See Rx Instructions .Route .COMPLEX 04/15/24 05/30/24 mcg/actuation nasal spray,suspension Allergies Allergy/AdvReac Type Severity Reaction Status Date / Time No Known Allergies Allergy Unknown Unverified 05/30/24 12:42 Review of Systems Review of Systems: CONSTITUTIONAL: Reports malaise, no noted chills, sweats, or fever.reports fatigue EYES: Denies visual changes, redness, or discharge. ENT: Reports rhinorrhea, congestion, sinus pain,no otalgia and positive sore throat. CARDIOVASCULAR: Denies chest pain, palpitations, or edema. RESPIRATORY: Reports cough.? states some dyspnea with exertion. GASTROINTESTINAL: Denies abdominal pain, nausea, vomiting, diarrhea SKIN: Denies rash or itching. MUSCULOSKELETAL: Denies myalgia. NEUROLOGIC: Reports headache. 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 There is no relevant family history pertinent to the presenting complaint Exam Narrative: GENERAL: Well-appearing, well-nourished,obese, and in no acute distress. HEAD: Normocephalic EYES: PERRLA, conjunctivae clear ENT: Nares clear, turbinates edematous and erythematous, clear discharge. Mucous membranes moist. TM pearly rangel with dull light reflex bilaterally; no
== END 2024-05-30 13:30 | disposition home or self-care (01) ==
PROVIDERS: Emergency Provider Registered Nurse; PCP Nurse Practitioner Family
DX: U07.1 COVID-19 (principal); I48.91 Unspecified atrial fibrillation; I42.9 Cardiomyopathy, unspecified; I10 Essential (primary) hypertension; G40.909 Epilepsy, unspecified, not intractable, without status epilepticus; Z79.01 Long term (current) use of anticoagulants
CPT/HCPCS: 87426; 99212; G0463

== ENCOUNTER 2024-07-02 14:38 | Outpatient (RCR) | payer OTHER, SELFPAY ==
[2024-04-17 13:55] LABS: INR 2.1; Prothrombin Time 23.5 Seconds (11.1-14.7)
[2024-04-23 16:41] LABS: Prothrombin Time 23.2 Seconds (11.1-14.7)
[2024-05-13 14:02] LABS: INR 1.6; Prothrombin Time 19.1 Seconds (11.1-14.7)
[2024-05-18 16:19] LABS: Prothrombin Time 23.1 Seconds (11.1-14.7)
[2024-07-02 15:22] LABS: INR 2.2; Prothrombin Time 24.9 Seconds (11.1-14.7)
== END 2024-07-16 23:59 | disposition home or self-care (01) ==
LOC: ANHLAB 14:38
PROVIDERS: PCP Nurse Practitioner Family; Visit Provider Specialist
DX: Z51.81 Encounter for therapeutic drug level monitoring (principal); I48.91 Unspecified atrial fibrillation; Z79.01 Long term (current) use of anticoagulants
CPT/HCPCS: 36415; 85610

== ENCOUNTER 2024-10-22 11:35 | Outpatient (RCR) | payer OTHER, SELFPAY ==
[2024-09-10 14:08] LABS: INR 2.2; Prothrombin Time 24.8 Seconds (11.1-14.7)
[2024-10-22 12:28] LABS: INR 1.8; Prothrombin Time 21.9 Seconds (11.1-14.7)
== END 2024-12-09 23:59 | disposition home or self-care (01) ==
LOC: ANHLAB 11:35
PROVIDERS: PCP Nurse Practitioner Family; Visit Provider Specialist
DX: I48.91 Unspecified atrial fibrillation (principal); Z79.01 Long term (current) use of anticoagulants
CPT/HCPCS: 36415; 85610

== ENCOUNTER 2024-12-17 17:28 | Outpatient (RCR) | payer OTHER, SELFPAY ==
[2024-12-17 18:03] LABS: INR 1.7; Prothrombin Time 20.5 Seconds (11.1-14.7)
== END 2025-03-17 23:59 | disposition home or self-care (01) ==
LOC: ANHLAB 17:28
PROVIDERS: PCP Nurse Practitioner Family; Visit Provider Specialist
DX: Z79.01 Long term (current) use of anticoagulants (principal); I48.91 Unspecified atrial fibrillation
CPT/HCPCS: 36415; 85610

== ENCOUNTER 2025-02-11 11:56 | Outpatient (CLI) | payer OTHER, SELFPAY ==
--- OUTSIDE RECORDS SUMMARY | 2025-02-11 12:08 | XMS_ITS | Encounter Summary ---
Author Organization [facility] Health Address [address] [address] Care Team Providers Care Parts Processor Name Role Phone [facility] Primary Care Provider Encounter Details Date Type Department Care Team (Late st Contact Info) Description 02/26/2023 Telephone [facility] - Neurology [address] [facility], [place] [address] Brady Cunningham [place] [id number] [place] [address] Social History Tobacco Use Types Packs/Day Years Used Date Smoking Tobacco: Never Smokeless Tobacco: Never Alcohol Use Standard Drinks/Week Comments No 0 (1 standard drink = 0.6 oz pur e alcohol) AUDIT-C Answer Date Recorded Q1: How often do you have a drink containing alcohol? Never 05/28/2022 Q2: How many drinks containi ng alcohol do you have on a typical day when you are drinking? Patient does not drink Q3: How often do you have si x or more drinks on one occasion? Never 05/28/2022 Hunger Vital Sign Answer Date Recorded Within the past 12 months, y ou worried that your food would run out before you got the money to buy more. Never true 05/29/20 Within the past 12 months, t he food you bought just didn't last and you didn't have money to get more. Never true 05/29/2022 Sex and Gender Information Value Date Recorded Sex Assigned at Male 11/16/2021 10:44 AM SANDWICH COUNTER ATTENDANT Legal Sex Male 6:00 PM SANDWICH COUNTER ATTENDANT Gender Identity Male 11/16/2021 10:44 AM SANDWICH COUNTER ATTENDANT Sexual Orientation Straight 11/16/2021 10 :44 AM SANDWICH COUNTER ATTENDANT documented as of this encounter Functional Status * Is person deaf or have serious hearing difficulty? Answer Date of Assessment Author No 05/28/2022 4:15 PM CDT Sa luis fernando Esparza APRN-GEMMA * Is person blind or have serious difficulty seeing? Answer Date of Assessment Author No 05/28/2022 4:15 PM CDT Sa luis fernando Esparza APRN-GEMMA * Does person have serious difficulty walking/climbing stairs? Answer Date of Assessment Author No 05/28/2022 4:15 PM CDT Sa luis fernando Esparza APRN-GEMMA * Does person have difficulty dressing/bathing? Answer Date of Assessment Author No 05/28/2022 4:15 PM CDT Sa luis fernando Esparza APRN-GEMMA * Does person have difficulty doing errands alone? Answer Date of Assessment Author Yes 05/28/2022 4:15 PM CDT Sa luis fernando Esparza APRN-GEMMA documented as of this encounter Mental Status * Does person have difficulty concentrating/remembering/making decisions? Answer Entry Date Author No 05/28/2022 4:15 PM CDT Sa luis fernando Esparza APRN-CNP documented in this encounter Plan of Treatment Upcoming Encounters Date Type Department Care Team (Late st Contact Info) Description 03/23/2025 10:00 AM CDT Office Visit [facility] - Neurology [address] [place] [id number] Alicja Ray APRN-CNP [address] [place] [address] documented as of this encounter Goals Goal Patient Goal Type Associated Problems Recent Progress Patient-Stated? Author PAIN General No Mannie Lewis, RN Note: Expected end date: 3 months Patient's pain/discomfort is manageable. Interventions: Will take pain medication as prescribed. To remain NWB to LUE, will do gentle elbow ROM exercises. documented as of this encounter Visit Diagnoses Not on filedocumented in this encounter Care Teams Parts Processor Relationship Specialty Start Date End Date Amy Sharma APRN-GEMMA [address] [place] [phone] PCP - General 01/03/16 documented as of this encounter
--- OUTSIDE RECORDS SUMMARY | 2025-02-11 12:08 | XMS_ITS | Encounter Summary ---
Author Organization [facility] Address [address] [place] [address] Phone Care Team Providers Care Clothing Manager Name Role Phone Cindi Wadsworth MD Primary Care Provider [phone] Cindi Wadsworth MD Unavailable Jose Sharma MD Primary Care Provider Amy Sharma NP Primary Care Provider [phone] Encounter Details Date Type Department Care Team (Late st Contact Info) Description 02/26/2024 Orders Only [facility] Surgery [address] [facility] Advanced Medicine 8th [place] [address] [place] [address] Suellen Miller MD PhD [address] [facility] [id number] [place] [address] Varicose veins of both lower extremities with pain (Primary Dx); Encounter for other preprocedural examination Social History Tobacco Use Types Packs/Day Years Used Date Smoking Tobacco: Never Smokeless Tobacco: Never Alcohol Use Standard Drinks/Week Comments No 0 (1 standard drink = 0.6 oz pur e alcohol) Personal Safety Answer Date Recorded Have you ever been in or are you currently in a harmful physical or emotional relationship or is someone making you feel afraid or unsafe? Denies 09/16/2023 Sex and Gender Information Value Date Recorded Sex Assigned at Not on file Legal Sex Male 4:06 AM UNDERWRITING CONSULTANT Gender Identity Male 12/29/2020 8:06 AM CDT Sexual Orientation Straight 12/29/2020 8: 06 AM CDT documented as of this encounter Plan of Treatment Not on file documented as of this encounter Visit Diagnoses Diagnosis Varicose veins of both lower extremities with pain- Primary Encounter for other preprocedural examination documented in this encounter Care Teams Clothing Manager Relationship Specialty Start Date End Date Cindi Wadsworth MD PCP - General 03/30/17 04/01/24 Jose Sharma MD [address] [place] [address] PCP - General Internal Medicine 04/02/24 05/01/24 Amy Sharma NP [address] [address] PCP - General Nurse Practitioner 05/02/24 Cindi Wadsworth MD 03/30/17 documented as of this encounter
--- OUTSIDE RECORDS SUMMARY | 2025-02-11 12:08 | XMS_ITS | Clinical Summary ---
Author Organization [facility] Farrah Bauman Address [address] [place] [address] Care Team Providers Care Child Psychiatrist Name Role Phone Zachary Amy JOHNSON Primary Care Provider [phone] Allergies No known active allergies Medications fluticasone propionate (FLONASE) 50 mcg/spray [place], Suspension nasal inhaler USE 1 SPRAY(S) IN EACH NOSTRIL ONCE DAILY 06/20/2020 Active warfarin (COUMADIN) 5 mg tablet TAKE 3 TABLETS BY MOUTH ONCE DAILY 07/10/2020 Active metoprolol tartrate (LOPRESSOR) 50 mg tablet TAKE 1 TABLET BY MOUTH TWICE DAILY 06/30/2020 Active lisinopriL (PRINIVIL) 5 mg tablet TAKE 1 TABLET BY MOUTH ONCE DAILY 07/11/2020 Active folic acid (FOLVITE) 1 mg tablet TAKE 1 TABLET BY MOUTH ONCE DAILY 07/10/2020 Active digoxin (LANOXIN) 250 mcg (0.25 mg) tablet TAKE 1 TABLET BY MOUTH ONCE DAILY 05/07/2020 Active cetirizine (ZyrTEC) 10 mg tablet TAKE 1 TABLET BY MOUTH ONCE DAILY 06/17/2020 Active acetaminophen (TYLENOL) 500 mg tablet Take 500 mg by mouth every 6 hours as needed. Active topiramate (TOPAMAX) 100 mg tablet Take 300 mg by mouth. 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 Family History Medical History Relation Name Comments Cancer Father Melanoma Father Healthy Mother Healthy Sister Relation Name Status Comments Father Alive Mother Alive Sister Alive Social History Tobacco Use Types Packs/Day Years Used Date Smoking Tobacco: Never Smokeless Tobacco: Never Alcohol Use Standard Drinks/Week Comments Never 0 (1 standard drink = 0.6 oz pur e alcohol) Sex and Gender Information Value Date Recorded Sex Assigned at Not on file Legal Sex Male 10:19 AM CDT Gender Identity Not on file Sexual Orientation Not on file Last Filed Vital Signs Vital Sign Reading Time Taken Comments Blood Pressure 113/79 08/05/2020 9:28 AM CDT Pulse 78 08/05/2020 9:28 AM CDT Temperature 36.8 C (98.3 F) 08/05/2020 9:28 AM CDT Respiratory Rate - - Oxygen Saturation 98% 08/05/2020 9:28 AM CDT Inhaled Oxygen Concentration - - Weight 183.6 kg (404 lb 12.8 oz) 08/05/2020 9:28 AM CDT Height 198.1 cm (6' 6 ) 08/05/2020 9:28 AM CDT Body Mass Index 46.78 08/05/2020 9:28 AM CDT Plan of Treatment Health Maintenance Due Date Last Done Comments DTAP/TDAP/TD VACCINES (1 - Tdap) 1996 HEPATITIS B VACCINES (1 of 3 - 19+ 3-dose series) 1996 COLORECTAL SCREENING 2022 Colorectal Cancer Screening 2022 FIT-DNA Q 3 years 2022 FIT/FOBT Q 1 year 2022 Flex Sig/CT Colonography Q 5 years 2022 INFLUENZA VACCINE (#1) 2024 , 08/10/2019, 07/08/2018, Additional history exists Care Teams Child Psychiatrist Relationship Specialty Start Date End Date Amy Sharma NP [address] [place] [address] PCP - General Nurse Practitioner Family 07/01/20
--- OUTSIDE RECORDS SUMMARY | 2025-02-11 12:08 | XMS_ITS | Clinical Summary ---
Author Organization [facility] Address [address] [place] [address] Phone Care Team Providers Care Multi Purpose Machine Operator Name Role Phone Amy Sharma APRN Primary Care Provider Allergies No known active allergies Medications LISINOPRIL PO Take 5 mg by mouth daily. Active topiramate (TOPAMAX) 100 MG Tablet Take 300 mg by mouth 2 times daily. Active WARFARIN SODIUM PO Take 16 mg by mouth. Active cefadroxil (DURICEF) 1 GM Tablet Take 500 mg by mouth 2 times daily. Active traMADol (ULTRAM) 50 MG Tablet Take 1 Tab by mouth every 8 hours as needed for Moderate or more severe pain. 15 Tab 10/08/2018 Active folic acid (FOLVITE) 1 MG Tablet Take 1 mg by mouth. 03/21/2021 Active metoprolol tartrate (LOPRESSOR) 50 MG Tablet Take 1 Tablet by mouth 2 times daily. 07/10/2021 Active digoxin (LANOXIN) 250 MCG Tablet Take 1 tablet by mouth once daily 08/04/2021 Active Active Problems No known active problems Immunizations Immunization Administration Dates Next Due Hepatitis A Vaccine,unspecified Formulation 06/2009 Influenza Vaccine, Quadrivalent, PF 07/17/2021 Influenza, Injectable, Quadrivalent 08/10/2019,1 ,07/18/2016 Social History Tobacco Use Types Packs/Day Years Used Date Smoking Tobacco: Never Smokeless Tobacco: Never Alcohol Use Standard Drinks/Week Comments No 0 (1 standard drink = 0.6 oz pur e alcohol) Sex and Gender Information Value Date Recorded Sex Assigned at Not on file Legal Sex Male 1:50 PM PRECISION FARMING SPECIALIST Gender Identity Not on file Sexual Orientation Not on file Last Filed Vital Signs Vital Sign Reading Time Taken Comments Blood Pressure 106/82 10/02/2021 4:36 PM PRECISION FARMING SPECIALIST Pulse 92 10/02/2021 4:36 PM PRECISION FARMING SPECIALIST Temperature 36.5 C (97.7 F) 10/02/2021 4:36 PM PRECISION FARMING SPECIALIST Respiratory Rate 20 10/02/2021 4:36 PM PRECISION FARMING SPECIALIST Oxygen Saturation 97% 10/02/2021 4:36 PM PRECISION FARMING SPECIALIST Inhaled Oxygen Concentration - - Weight 199.6 kg (440 lb) 10/02/2021 4:36 PM PRECISION FARMING SPECIALIST Height 198.1 cm (6' 6 ) 10/02/2021 4:36 PM PRECISION FARMING SPECIALIST Body Mass Index 50.85 10/02/2021 4:36 PM PRECISION FARMING SPECIALIST Plan of Treatment Health Maintenance Due Date Last Done Comments Hepatitis C Virus (HCV) Screening 1977 Hepatitis B Immunization (1 of 3 - 19+ 3-dose series) 1996 Colonoscopy 2022 Colorectal Cancer Screening 2022 Influenza Immunization (#1) 06/07/202406/07, 07/17/2021, 08/10/2019, Additional history exists SARS-COV-2 Immunization ( season) 2024 05/25/2021, 05/04/2021 Respiratory Syncytial Virus (RSV) Immunization (Adult) (1 - 1-dose 75+ series) 2052 DTaP/Tdap/Td Immunization Discontinued 06/25/2022 TdaP Immunization Completed 06/25/2022 Meningococcal Immunization (ACWY) Aged Out No longer eligible based on patient's age to complete this topic Pneumococcal Immunization Combined Aged Out No longer eligible based on patient's age to complete this topic Rotavirus Immunization Aged Out No lo nger eligible based on patient's age to complete this topic Insurance MEDICAID [employer] Care Teams Multi Purpose Machine Operator Relationship Specialty Start Date End Date Amy Sharma APRN [address] [facility] [place] [address] PCP - General Family Medicine 08/27/16
--- OUTSIDE RECORDS SUMMARY | 2025-02-11 12:08 | XMS_ITS | Clinical Summary ---
Author Organization [facility] Address [address] [place] [address] Care Team Providers Care Road Sign Installer Name Role Phone Cindi Wadsworth MD Unavailable Amy Sharma NP Primary Care Provider [phone] Allergies No known active allergies Medications topiramate (TOPAMAX) 100 mg tablet take 3 Tablet (300MG) by oral route 2 times every day 0 2 Active compression socks, large (MEDICOOL'S DIASOX LARGE) misc wear daily and remove at bedtime 1 each 2 4 Active cetirizine (ZyrTEC) 10 mg tablet Take 1 tablet (10 mg total) by mouth daily 0 Active fluticasone propionate (FLONASE) 50 mcg/actuation nasal spray Use 1 spray(s) in each nostril once daily Active cholecalcifero l (VITAMIN D-3) 2000 unit tablet Take 1 tablet (2,000 Units total) by mouth daily Active metoprolol tartrate (LOPRESSOR) 50 mg immediate release tablet Take 1 tablet by mouth twice daily 180 tablet 3 4 Active digoxin (LANOXIN) 250 mcg (0.25 mg) tablet Take 1 tablet by mouth once daily 90 tablet 3 5 Active lisinopriL (PRINIVIL,ZEST RIL) 5 mg tablet Take 1 tablet by mouth once daily 90 tablet 1 5 Active warfarin (COUMADIN) 5 mg tablet TAKE 3 TABLETS BY MOUTH ONCE DAILY OR DIRECTED PER DR (TOTAL DAILY DOSE IS 16 MG). INR NEEDED FOR FUTURE REFILLS. 270 tablet 5 Active warfarin (COUMADIN) 1 mg tablet TAKE 1 TABLET BY MOUTH ONCE DAILY. INR NEEDED FOR FUTURE REFILLS. 90 tablet 5 Active warfarin (COUMADIN) 5 mg tablet TAKE 3 TABLETS BY MOUTH ONCE DAILY OR DIRECTED BY PHYSICAN (TOTAL DOSE IS 16MG DAILY) 270 tablet 5 025 Discontinued warfarin (COUMADIN) 1 mg tablet Take 1 tablet by mouth once daily 90 tablet 5 025 Discontinued Active Problems Problem Noted Date Diagnosed Date Subconjunctival hemorrhage of left eye 8 Warfarin anticoagulation 03/14/2018 Anterior epistaxis 03/14/2018 Atrial fibrillation 09/08/2014 Overview (01/10/2017): Atrial fibrillation Encounters Date Type Department Care Team Description 02/11/2025 Telephone [facility] Cardiology [address] [place] [address] Ghanshyam Jones MD 12/18/2024 Anticoagulation Visit [facility] Cardiology [address] [place] [address] Jose King RN Atrial fibrillation, unspecified type (HCC) (Primary Dx) from Last 3 Months Medical History Medical History Date Comments Seizure disorder (HCC) Seizure D isorder Adiposity Obesity Hx Other Medical Sleep Apnea, CP AP Hx Other Medical Varicose Veins Hx Other Medical RLE DVT 08/20; Comments: [facility] 09/08/2014 - Cardiomyopathy (HCC) Heart disease 2010 Sleep apnea 2012 Family History Medical History Relation Name Comments Heart disease Father Geraldo Bejarano Jr Hypertension Father Geraldo Bejarano Jr Coronary artery disease Maternal Grandmother Coronary Artery Disease; Cancer Paternal Grandmother Dee Casanova Heart disease Paternal Grandmother Dee Casanova Relation Name Status Comments Father Geraldo Bejarano Jr Maternal Grandmother Alive Paternal Grandmother Dee Casanova Social History Tobacco Use Types Packs/Day Years Used Date Smoking Tobacco: Never Smokeless Tobacco: Never Alcohol Use Standard Drinks/Week Comments No 0 (1 standard drink = 0.6 oz pur e alcohol) Personal Safety Answer Date Recorded Have you ever been in or are you currently in a harmful physical or emotional relationship or is someone making you feel afraid or unsafe? Denies 05/02/2024 Sex and Gender Information Value Date Recorded Sex Assigned at Not on file Legal Sex Male 4:06 AM SKID MAN Gender Identity Male 12/29/2020 8:06 AM CDT Sexual Orientation Straight 12/29/2020 8: 06 AM CDT Obstetrics History Last Filed Vital Signs Vital Sign Reading Time Taken Comments Blood Pressure 120/80 10/22/2024 10:47 AM SKID MAN Pulse 80 10/22/2024 10:47 AM SKID MAN Temperature 36.5 C (97.7 F) 05/02/2024 1:30 PM CDT Respiratory Rate 18 05/02/2024 1:30 PM CDT Oxygen Saturation 96% 10/22/2024 10: 47 AM SKID MAN Inhaled Oxygen Concentration - - Weight 210.4 kg (463 lb 14.4 oz) 2024 10:47 AM SKID MAN Height 198.1 cm (6' 6 ) 10/22/2024 10:4 7 AM SKID MAN Body Mass Index 53.61 10/22/2024 10:47 AM SKID MAN Plan of Treatment Health Maintenance Due Date Last Done Comments Colon Cancer Screening-Colonoscopy 1977 Depression Screening 1977 Hepatitis C Screening 1977 Hepatitis B Screening 1995 Regular Well Visit/Exam 18-64 1995 Covid-19 Vaccine ( - season) 2024 05/25/2021, 05/04/2021 DTaP/Tdap/Td Vaccine (2 - Td or Tdap) 06/25/2032 06/25/2022 Influenza Vaccine Completed 08/10/2024, , 06/25/2022, Additional history exists Pneumococcal vaccine <65 Aged Out No longer eligible based on patient's age to complete this topic Procedures Procedure Name Priority Date/Time Associated Diagnosis Comments PROTIME-INR Routine 12/17/2024 from Last 3 Months Results * (ABNORMAL) Protime-INR (12/17/2024) INR 1.70(A) 0.90 - 1.10 EXTERNAL LAB Blood 12/17/2024 us Historical Provider LAB BLOOD ORDERABLES Magaly mcrae Result EXTERNAL LAB from Last 3 Months Insurance [facility] Care Teams Road Sign Installer Relationship Specialty Start Date End Date Amy Sharma NP [address] [place] [id number] PCP - General Nurse Practitioner 05/02/24 Cindi Wadsworth MD 03/30/17
--- OUTSIDE RECORDS SUMMARY | 2025-02-11 12:08 | XMS_ITS | Encounter Summary ---
Author Organization [facility] Address [address] [place] [address] Care Team Providers Care Table Cut Off Saw Operator Name Role Phone Cindi Wadsworth MD Unavailable Amy Sharma NP Primary Care Provider [phone] Encounter Details Date Type Department Care Team (Late st Contact Info) Description 02/11/2025 Telephone [facility] Cardiology [address] [place] [address] Ghanshyam Jones MD [address] [place] [address] Social History Tobacco Use Types Packs/Day Years [...] on file Legal Sex Male 4:06 AM BIOLOGY TUTOR Gender Identity Male 12/29/2020 8:06 AM CDT Sexual Orientation Straight 12/29/2020 8: 06 AM CDT documented as of this encounter Miscellaneous Notes * Telephone Encounter - Betina Guerrero RN - 02/11/2025 11:53 AM CDT Pt requesting new INR order be faxed to lab. Order placed and faxed as requested. documented in this encounter Plan of Treatment Scheduled Orders Name Type Priority Associated Diagnoses Orde r Schedule Protime-INR Lab Routine Warfarin anticoagulation weekly for 52 Occurrences starting 02/11/2025 until 02/11/2026 documented as of this encounter Visit Diagnoses Diagnosis Warfarin anticoagulation- Primary documented in this encounter Care Teams Table Cut Off Saw Operator Relationship Specialty Start Date End Date Amy Sharma NP [address] [place] [place] [address] PCP - General Nurse Practitioner 05/02/24 Cindi Wadsworth MD 03/30/17 documented as of this encounter
--- OUTSIDE RECORDS SUMMARY | 2025-02-11 12:08 | XMS_ITS | Encounter Summary ---
Author Organization [facility] Healthcare Address [address] [place] [address] Care Team Providers Care Balcony Worker Name Role Phone Cindi Wadsworth MD Primary Care Provider [phone] Cindi Wadsworth MD Unavailable Jose Sharma MD Primary Care Provider Amy Sharma NP Primary Care Provider [phone] Encounter Details Date Type Department Care Team (Late st Contact Info) Description 02/18/2024 Orders Only [facility] Operating Room [address] [place] [address] Suellen Miller MD PhD [address] [id number] [place] [address] Varicose veins of both lower extremities with pain (Primary Dx); PAD (peripheral artery disease); Encounter for preprocedural cardiovascular examination; Encounter for other preprocedural examination Social History [...] on file Legal Sex Male 4:06 AM DATE PULLER Gender Identity Male 12/29/2020 8:06 AM CDT Sexual Orientation Straight 12/29/2020 8: 06 AM CDT documented as of this encounter Plan of Treatment Not on file documented as of this encounter Visit Diagnoses Diagnosis Varicose veins of both lower extremities with pain- Primary PAD (peripheral artery disease) Unspecified peripheral vascular disease Encounter for preprocedural cardiovascular examination Encounter for other preprocedural examination documented in this encounter Care Teams Balcony Worker Relationship Specialty Start Date End Date Cindi Wadsworth MD PCP - General 03/30/17 04/01/24 Jose Sharma MD [address] [place] [address] PCP - General Internal Medicine 04/02/24 05/01/24 Amy Sharma NP [address] [place] [id number] PCP - General Nurse Practitioner 05/02/24 Cindi Wadsworth MD 03/30/17 documented as of this encounter
--- OUTSIDE RECORDS SUMMARY | 2025-02-11 12:08 | XMS_ITS | Referral Summary ---
Author Organization [facility] Address [address] [place] [address] Care Team Providers Care School Teacher Name Role Phone Cindi Wadsworth MD Unavailable Amy Sharma NP Primary Care Provider [phone] Encounters Date Type Department Care Team Description 02/11/2025 Telephone [facility] Cardiology [address] [place] [address] Ghanshyam Jones MD 12/18/2024 Anticoagulation Visit [facility] [address] [place] [address] Jose King RN Atrial fibrillation, unspecified type (HCC) (Primary Dx) from Last 3 Months Allergies No known active allergies Medications topiramate [...] Atrial fibrillation 09/08/2014 Overview (01/10/2017): Atrial fibrillation Social History Tobacco Use Types Packs/Day Years [...] on file Legal Sex Male 4:06 AM TAILMAN Gender Identity Male 12/29/2020 8:06 AM CDT Sexual Orientation Straight 12/29/2020 8: 06 AM CDT Last Filed Vital Signs Vital Sign Reading Time Taken Comments Blood Pressure 120/80 10/22/2024 10:47 AM TAILMAN Pulse 80 10/22/2024 10:47 AM TAILMAN Temperature 36.5 C (97.7 F) 05/02/2024 1:30 PM CDT Respiratory Rate 18 05/02/2024 1:30 PM CDT Oxygen Saturation 96% 10/22/2024 10: 47 AM TAILMAN Inhaled Oxygen Concentration - - Weight 210.4 kg (463 lb 14.4 oz) 2024 10:47 AM TAILMAN Height 198.1 cm (6' 6 ) 10/22/2024 10:4 7 AM TAILMAN Body Mass Index 53.61 10/22/2024 10:47 AM TAILMAN Plan of Treatment Not on file Procedures Procedure Name Priority Date/Time Associated Diagnosis Comments PROTIME-INR Routine 12/17/2024 from Last 3 Months Results * (ABNORMAL) Protime-INR (12/17/2024) INR 1.70(A) 0.90 - 1.10 EXTERNAL LAB Blood 12/17/2024 us Historical Provider LAB BLOOD ORDERABLES Magaly l Result EXTERNAL LAB from Last 3 Months Insurance [facility] Care Teams School Teacher Relationship Specialty Start Date End Date Amy Sharma NP [address] [address] PCP - General Nurse Practitioner 05/02/24 Cindi Wadsworth MD 03/30/17
--- OUTSIDE RECORDS SUMMARY | 2025-02-11 12:08 | XMS_ITS | CONTINUITY OF CARE DOCUMENT ---
Author Name bandar portillo Address Unknown Organization [facility] Address [address] [place] [address] [address] [place] [address] Phone [phone] Care Team Providers Care Eligibility Consultant Name Role Phone Hernan RENTERIA, Vaibhav Unavailable Zachary ORNELAS, Amy Unavailable Zachary DIRECTOR OF SECURITY, Amy Unavailable [phone] INSURANCE PROVIDERS Payer name Policy type / Coverage type Aris red green party ID [place] MEDICAID (2) Medicaid [id number]
--- OUTSIDE RECORDS SUMMARY | 2025-02-11 12:09 | XMS_ITS | Data Portability ---
Author Organization [facility] Lory GAITAN Address [address] [place] [address] Care Team Providers Care Bench Grinder Name Role Phone MIKYKIMBERLYEROS MAHARAJ Primary Care Provider Unavailab le Assessment No assessment recorded. Plan of Treatment Reminders Order Date Submit Date Provider Last Modified By Organization Details Last Modified Time Details Appointments None recorded. Lab rapid strep group A, throat 2024 025 In-Office Order, Internal Use Only DO Not Attach Compendium DO Not Attach Compendium, Do Not Delete/merge, [id number] 12:46:39 rsv (respirator y syncytial virus), rapid, nasopharyng eal 2024 025 In-Office Order, Internal Use Only DO Not Attach Compendium DO Not Attach Compendium, Do Not Delete/merge, [id number] 12:46:39 rapid SARS CoV 2 Ag, QL IA, respiratory specimen 2024 025 In-Office Order, Internal Use Only DO Not Attach Compendium DO Not Attach Compendium, Do Not Delete/merge, [id number] 12:46:39 streptococc us group A, culture, throat 2024 025 [facility], [address], [place], [address], 5 07:07:21 influenza virus A + B + SARS-CoV-2 (COVID19) Ag panel, rapid IA, upper respiratory specimen 2024 025 [facility] 1 In-Office Order, Internal Use Only DO Not Attach Compendium DO Not Attach Compendium, Do Not Delete/merge, [id number] 16:44:51 vitamin B12 + folate, serum or blood 2023 024 [facility] [address] [facility], [address], [place], [address], 15:58:04 Referral None recorded. Procedures None recorded. Surgeries None recorded. Imaging None recorded. Medication Orders Tamiflu 75 mg capsule 2024 025 [facility] [place], [address], 5 13:02:32 benzonatate 200 mg capsule 2024 025 [facility] [address] [place], [address], 5 13:02:33 Patient TargetsNo targets recorded. Patient Instructions Encounter Date Encounter Id Patient Instructions Last Modified By Organization Details Last Modified Time 01/27/2024 [id number] A healthy lifestyle: care instructions Not available 02/05/2024 16:44:45 10/29/2024 [id number] learning about t he mediterranean diet Not available 10/29/2024 16:44:51 A healthy lifestyle: care instructions Not available 10/29/2024 22:52:42 11/12/2024 [id number] body mass index: care instructions Not available 11/12/2024 16:45:58 learning about healthy weight Not available 11/12/2024 16:45:58 sore throat: car e instructions Not available 11/12/2024 12:46:39 Reason for Referral None Reported. Results Created Date Observation Date Name Description Value Unit Range Abnormal Flag Note LastModifiedBy Organization Detail LastModifiedTime 07/08/20 24 07/08/2024 COLOG UARD cologuard result Cancel led - Order d not applic able Not Available [facility] (Cologuard Orders Only) [address], [place], [address], 07/08/2024 08:11:40 10/29/19 25 10/29/2024 influ kristine virus A + B + SARS- CoV-2 (COVI D19) Ag panel , rapid IA, upper respi rator y speci men Flu A negati ve Not Available In-Office Order Internal Use Only DO Not Attach Compendium DO Not Attach Compendium, Do Not Delete/merge, [id number] 10/29/2024 16:03:36 10/29/19 25 10/29/2024 influ kristine virus A + B + SARS- CoV-2 (COVI D19) Ag panel , rapid IA, upper respi rator y speci men Flu B negati ve Not Available In-Office Order Internal Use Only DO Not Attach Compendium DO Not Attach Compendium, Do Not Delete/merge, [id number] 10/29/2024 16:03:36 10/29/19 25 10/29/2024 influ kristine virus A + B + SARS- CoV-2 (COVI D19) Ag panel , rapid IA, upper respi rator y speci men Rapid SARS CoV 2 Ag, QL IA, respiratory specimen negati ve Not Available In-Office Order Internal Use Only DO Not Attach Compendium DO Not Attach Compendium, Do Not Delete/merge, [id number] 10/29/2024 16:03:36 11/12/19 25 11/16/2024 BETA STREP GP A CULTU RE beta strep gp A culture NEGATI VE Refer ence Range : Negat ritchie Not Available [facility] ([facility]) [address] [facility], [place], [address], 11/16/2024 07:07:21 11/12/19 25 11/12/2024 rsv (resp irato ry syncy tial virus ), rapid , nasop haryn geal RSV negati ve Not Available In-Office Order Internal Use Only DO Not Attach Compendium DO Not Attach Compendium, Do Not Delete/merge, [id number] 11/12/2024 12:39:47 11/12/19 25 11/12/2024 rsv (resp irato ry syncy tial virus ), rapid , nasop haryn geal RSV negati ve Not Available In-Office Order Internal Use Only DO Not Attach Compendium DO Not Attach Compendium, Do Not Delete/merge, 11/12/2024 12:39:47 11/12/19 25 11/12/2024 rapid strep group A, throa t Strep negati ve Not Available In-Office Order Internal Use Only DO Not Attach Compendium DO Not Attach Compendium, Do Not Delete/merge, 11/12/2024 12:38:57 11/12/19 25 11/12/2024 rapid strep group A, throa t Strep negati ve Not Available In-Office Order Internal Use Only DO Not Attach Compendium DO Not Attach Compendium, Do Not Delete/merge, 11/12/2024 12:38:57 11/12/1911/12/2024 rapid SARS CoV 2 Ag, QL IA, respi rator y speci men rapid SARS CoV 2 Ag, QL IA, respiratory specimen negati ve Not Available In-Office Order Internal Use Only DO Not Attach Compendium DO Not Attach Compendium, Do Not Delete/merge, 11/12/2024 12:40:59 01/16/20 24 01/16/2024 US, doppl er, venou s No observ ation record ed. [email or web address] [address], [place], [address], 01/20/2024 12:11:22 Result Notes None recorded. Problems Name Problem SNOMED Code Status Onset Date Resolution Date Notes Provider Name and Address Organization Details Recorded Time Cardiomy opathy 38183374 Active 09/2024- EF 43% on ECHO JEN Bhatia Attn: Licha langley,[address] [facility], [place], [address], [facility] [place] - [facility] 16:06:55 Pain in right lower limb 025795112 Active JEN Bhatia Attn: Licha langley,[address] [facility], [place], [address], [place] - [facility] 8 16:27:03 Sore throat 020280998 Active 2024 Jennifer Higgins MA null, [place] - [facility] 5 12:39:05 Infestat ion by Sarcopte s scabiei kevin hominis [id number] Completed 07/18/2016 Removal Reason: resolved JEN Bhatia Attn: Licha langley,[address] [facility], [place], [address], [place] - [facility] 6 14:35:24 Body mass index 40+ - severely obese 846014980 Active JEN Bhatia Attn: Licha langley,[address] [place], [address], [facility] [place] - [facility] 8 16:27:03 Knee pain Active JEN Bhatia Attn: Licha langley,[address] [facility], [place], [address], [place] - [facility] 8 16:27:03 Absence seizure 59092826 Active JEN Bhatia Attn: Licha langley,[address] [facility], [place], [address], [place] - [facility] 8 16:27:03 Chronic atrial fibrilla tion 517619709 Active JEN Bhatia Attn: Licha langley,[address] [facility], [place], [address], [place] - [facility] 8 16:27:03 Obesity 218967220 Active JEN Bhatia Attn: Licha langley,[address] [place], [address], [place] - [facility] 8 16:27:03 Problem Notes None recorded. Procedures Surgical History Date Name Laterality Status Provider Name and Address Organization Details Recorded Time 10/07/2002 Other completed Petey Mendez [place] - [facility] 09/19/2015 11:16:30 Imaging Results Imaging Date Name Status LastModified by Organiz ation Details LastModified Time 01/16/2024 US, doppler, venous completed [address], [place], [address], 01/20/2024 12:11:22 Procedure Notes None recorded. Medical Equipment None Reported. Allergies No known drug allergies Medications Name Sig Start Date Stop Date Status Note LastModified by Organization Details LastModified Time amoxicillin 500 mg capsule TAKE 1 CAPSULE BY MOUTH EVERY 8 HOURS 07/01 completed Not Available Not Available Not Available methocarbam ol 500 mg tablet TAKE 1 TABLET BY MOUTH TWICE DAILY active Not Available Not Available No t Available clindamycin HCl 300 mg capsule TAKE 1 CAPSULE BY MOUTH EVERY 8 HOURS 06/01 completed Not Available Not Available Not Available cefaclor 500 mg capsule 05/26 completed Not Available Not Available Not Available cetirizine 10 mg tablet Take 1 tablet by mouth once daily 2024 active Not Available Not Available Not Avai lable azithromyci n 250 mg tablet TAKE 2 TABLETS (500 MG) BY ORAL ROUTE ONCE DAILY FOR 1 DAY THEN 1 TABLET (250 MG) BY ORAL ROUTE ONCE DAILY FOR 4 DAYS 01/20 completed Not Available Not Available Not Available Lidocaine Viscous 2 % mucosal solution Swish and spit 15 ml every 3 hours as needed; max 8 doses in 24 hours 05/26 completed Not Available Not Available Not Available metoprolol tartrate 100 mg tablet TAKE 1 TABLET BY MOUTH TWICE DAILY 01/18 completed Not Available Not Available Not Available benzonatate 200 mg capsule Take 1 capsule 3 times a day by oral route as needed for 10 days. 2024 active Not Available Not Available Not Avai lable levetiracet am 500 mg tablet TAKE 1 TABLET BY MOUTH TWICE DAILY 07/01 completed Not Available Not Available Not Available hydrocodone 5 mg-acetamin ophen 325 mg tablet TAKE 1 TABLET BY MOUTH EVERY 6 HOURS NEEDED FOR PAIN 06/25 completed Not Available Not Available Not Available Nystop 100,000 unit/gram topical powder APPLY POWDER TOPICALLY TWICE DAILY 05/02 completed Not Available Not Available Not Available prednisone 20 mg tablet TAKE 2 TABLETS BY MOUTH ONCE DAILY FOR 5 DAYS 09/16 completed Not Available Not Available Not Available dexamethaso ne 6 mg tablet Take 1 tab po one time only today 05/26 completed Not Available Not Available Not Available permethrin 5 % topical cream APPLY (THOROUGH LY MASSAGE INTO SKIN FROM HEAD TO SOLES OF FEET) BY TOPICAL ROUTE ONCE LEAVE ON FOR 8-14 HR, THEN REMOVE BY THOROUGH WASHING 07/18 completed Not Available Not Available Not Available acetaminoph en 300 mg-codeine 30 mg tablet TAKE 1 TABLET BY MOUTH EVERY 6 HOURS NEEDED FOR PAIN. ALTERNATE WITH IBUPROFEN 05/02 completed Not Available Not Available Not Available digoxin 250 mcg (0.25 mg) tablet TAKE 1 TABLET BY MOUTH ONCE DAILY active Not Available Not Available No t Available sulfamethox azole 800 mg-trimetho prim 160 mg tablet Take 1 tablet every 12 hours by oral route for 7 days. 08/10 completed Not Available Not Available Not Available tramadol 50 mg tablet 11/20 completed Not Available Not Available Not Available triamcinolo ne acetonide 0.1 % topical cream APPLY CREAM EXTERNALL Y TO AFFECTED AREA(S) TWICE DAILY active Not Available Not Available No t Available warfarin 3 mg tablet TAKE 1 TABLET BY MOUTH ONCE DAILY 07/01 completed Not Available Not Available Not Available zonisamide 100 mg capsule TAKE 1 CAPSULE BY MOUTH ONCE DAILY FOR 12 DAYS, THEN INCREASE TO 2 CAPSULES ONCE DAILY FOR 90 DAYS 01/26 completed Not Available Not Available Not Available meloxicam 7.5 mg tablet TAKE 1 TABLET BY MOUTH TWICE DAILY WITH MEALS FOR 14 DAYS active Not Available Not Available No t Available terbinafine HCl 250 mg tablet TAKE 1 TABLET BY MOUTH ONCE DAILY 07/01 completed Not Available Not Available Not Available amoxicillin 875 mg tablet 08/10 completed Not Available Not Available Not Available amitriptyli ne 25 mg tablet Take 1 tablet(s) every day by oral route at bedtime. active Not Available Not Available No t Available baclofen 10 mg tablet Take 1 tablet twice a day by oral route as needed. 08/10 completed Not Available Not Available Not Available oseltamivir 75 mg capsule TAKE 1 CAPSULE BY MOUTH TWICE DAILY FOR 5 DAYS active Not Available Not Available No t Available lisinopril 10 mg tablet 05/26 completed Not Available Not Available Not Available warfarin 5 mg tablet TAKE 3 TABLETS BY MOUTH ONCE DAILY OR DIRECTED PER DR (TOTAL DAILY DOSE IS 16 MG). INR NEEDED FOR FUTURE REFILLS. active Not Available Not Available No t Available metoprolol tartrate 50 mg tablet TAKE 1 TABLET BY MOUTH TWICE DAILY active Not Available Not Available No t Available folic acid 1 mg tablet TAKE 1 TABLET BY MOUTH ONCE DAILY active Not Available Not Available No t Available Keppra 750 mg tablet Take 1 tablet twice a day by oral route. 07/18 completed Not Available Not Available Not Available topiramate 200 mg tablet 2 tabs BID 05/02 completed Not Available Not Available Not Available lisinopril 5 mg tablet TAKE 1 TABLET BY MOUTH ONCE DAILY active Not Available Not Available No t Available warfarin 1 mg tablet TAKE 1 TABLET BY MOUTH ONCE DAILY. INR NEEDED FOR FUTURE REFILLS. active Not Available Not Available No t Available diazepam 10 mg tablet 08/10 completed Not Available Not Available Not Available methylpredn isolone 4 mg tablets in a dose pack TAKE BY MOUTH DIRECTED ON INSIDE OF PACKAGE 01/02 completed Not Available Not Available Not Available albuterol sulfate HFA 90 mcg/actuati on aerosol inhaler INHALE 2 PUFFS BY MOUTH EVERY 4 TO 6 HOURS active Not Available Not Available No t Available topiramate 100 mg tablet TAKE 3 TABLETS BY MOUTH TWICE DAILY active Not Available Not Available No t Available fluticasone propionate 50 mcg/actuati on nasal spray,suspe nsion USE 1 SPRAY(S) IN EACH NOSTRIL ONCE DAILY active Not Available Not Available No t Available loratadine 10 mg tablet 01/20 completed Not Available Not Available Not Available amoxicillin 875 mg-potassiu m clavulanate 125 mg tablet TAKE 1 TABLET BY MOUTH TWICE DAILY FOR 10 DAYS 09/16 completed Not Available Not Available Not Available nystatin (bulk) 1 billion unit powder 1 applicati on twice daily 05/02 completed Not Available Not Available Not Available azithromyci n 500 mg tablet 05/26 completed Not Available Not Available Not Available zonisamide 50 mg capsule TAKE 1 CAPSULE BY MOUTH AT NIGHT FOR 14 DAYS;THEN INCREASE TO 2 CAPSULES AT NIGHT 01/26 completed Not Available Not Available Not Available [place] Saline 0.65 % nasal spray aerosol active Not Available Not Available Not Available levetiracet am 1,000 mg tablet 06/25 completed Not Available Not Available Not Available Artificial Tears (glycerin-p eg) 1 %-0.3 % eye drops Apply 1 drop every day by ophthalmi c route as directed. 2017 active Not Available Not Available Not Shanice cristina Procto-Med HC 2.5 % topical cream perineal applicator APPLY A THIN LAYER TO THE AFFECTED AREA(S) BY TOPICAL ROUTE 2-4 TIMESDAIL Y PRN 07/01 completed Not Available Not Available Not Available Vitals Date Recorded Body height Body mass index (BMI) Body weight Body temperature Heart rate Systolic blood pressure Diastolic blood pressure Provider Name and Address Organization Details Last Updated DateTime 4 196.85 cm 55.6 kg/m2 814627. 38 g 96.9 [degF] 70 /min 117 mm[Hg] 82 mm[Hg] Jennifer Higgins MA [place] - [facility] 4 14:11:41 Date Recorded Body height Body mass index (BMI) Body weight Body temperature Heart rate Oxygen saturation Oxygen saturation in Arterial blood by Pulse oximetry Systolic blood pressure Diastolic blood pressure Provider Name and Address Organization Details Last Updated DateTime 4 196.85 cm 54 kg/m2 198088. 08 g 97.3 [degF] 90 /min 98 % 98 % 116 mm[Hg] 76 mm[Hg] Shaina [place] MA [place] - [facility] 4 09:50:59 Date Recorded Body height Body mass index (BMI) Body weight Body temperature Heart rate Oxygen saturation Oxygen saturation in Arterial blood by Pulse oximetry Systolic blood pressure Diastolic blood pressure Provider Name and Address Organization Details Last Updated DateTime 5 196.85 cm 54.1 kg/m2 247086. 67 g 97.7 [degF] 70 /min 97 % 97 % 129 mm[Hg] 86 mm[Hg] Shaina [place] MA [place] - [facility] 5 15:49:41 Date Recorded Body height Body mass index (BMI) Body weight Body temperature Heart rate Systolic blood pressure Diastolic blood pressure Provider Name and Address Organization Details Last Updated DateTime 5 196.85 cm 54.5 kg/m2 612823. 04 g 97.1 [degF] 96 /min 120 mm[Hg] 84 mm[Hg] Jennifer Higgins MA [facility] 5 12:06:20 Social History Question Answer Notes LastModified by Organizat ion Details LastModified Time Tobacco Smoking Status Never Smoker Jennifer Higgins MA null, [facility] 12/24/2014 17:23:19 What Is Your Level Of Alcohol Consumption? None [email or web address] Information not available 12/24/2014 Do You Or Have You Ever Used E-cigarettes Or Vape? Never Used Electronic Cigarettes [email or web address] Information not available 01/21/2020 What Was The Date Of Your Most Recent Tobacco Screening? 10/29/2024 [email or web address] Information not available 10/29/2024 Do You Use Any Illicit Or Recreational Drugs? No Information not available 02/14/2021 Do You Or Have You Ever Used Any Other Forms Of Tobacco Or Nicotine? No Information not available 02/14/2021 Sex: Male Functional Status None recorded. Mental Status None recorded. Family History Relationship Description Onset Age of this Age Resolved Age Notes LastModified by Organization Details LastModified Time Father Hypertensive disorder [email or web address] Not available 06/06 12:32:11 Maternal Grandmother Malignant neoplasm of bone [email or web address] Not available 06/06 12:32:11 Medical History Condition Response Other Y Atrial Fibrillation Y Seizures/Epilepsy Y Immunizations Vaccine Type Date Status Note Provider Nam e and Address Organization Details Recorded Time COVID-19, mRNA, LNP-S, PF, 30 mcg/0.3 mL dose 1 completed JEN Bhatia Attn: [address] [place], [address], [place] [facility] 06/25/2022 12:38:10 COVID-19, mRNA, LNP-S, PF, 30 mcg/0.3 mL dose 1 completed JEN Bhatia Attn: [address] [place], [address], [place] [facility] 06/25/2022 12:38:10 Hep A, unspecified formulation 9 completed Eros Sharma STAPLE SHEAR OPERATOR-C Attn: Accounting[address] [facility], [place], [address], [facility] [place] - [facility] 06/25/2022 12:38:10 Influenza, split virus, quadrivalent, preservative 6 completed Not Available [facility] 10/24/2019 02:40:55 Influenza, split virus, quadrivalent, preservative 8 completed Not Available [facility] 10/24/2019 02:36:23 Influenza, split virus, quadrivalent, preservative 9 completed Not Available [facility] 10/24/2019 02:47:54 Influenza, split virus, quadrivalent, PF 1 completed DARRYL Cornelius, [facility] 07/17/2021 17:30:27 Tdap 2 completed Eros Sharma STAPLE SHEAR OPERATOR-C Attn: Accounting[address] [place], [address], [facility] [place] - [facility] 07/03/2022 10:21:28 Influenza, split virus, quadrivalent, PF 2 completed Eros Sharma STAPLE SHEAR OPERATOR-C Attn: Accounting[address] [place], [address], [facility] [place] - SI 07/03/2022 10:21:28 Influenza, split virus, quadrivalent, PF 3 completed Eros Sharma STAPLE SHEAR OPERATOR-C Attn: Accounting[address] [place], [address], [facility] [place] - [facility] 07/09/2023 13:46:33 Influenza, split virus, trivalent, PF 4 completed DARRYL Cornelius, [place] - [facility] 08/10/2024 17:36:25 Past Encounters Encounter ID Performer Location Encounter Start Date Encounter Closed Date Diagnosis/Indication Diagnosis SNOMED-CT Code Diagnosis ICD10 Code Diagnosis Note [id number] MD Junito Freire [facility] ([facility]) [address] [facility] [place] [address] 09/07/2014 10:38:41 09/21/2014 03:51:04 Anticoagulant therapy 502946187 Will stop lovenox after 1pm injection today. Continue Warfarin at 15mg dose. Will repeat PT/INR on Saturday. Continue to wear compressio n stockings. Monitor for signs/symp toms of bleeding. No standing or sitting for long periods of time. Work note written for this week. May go back to work next week but must be able to move around while at work. Continue other medication s as prescribed . See back in one month. [id number] MD Junito Freire [facility] ([facility]) [address] [place] [address] 12/24/2014 17:07:54 12/24/2014 17:43:45 Pain in right lower limb 176929622 R knee pain. Concern for DVT. Has his INR checked today. Will send for vascular US to rule out clot. [id number] Segundo Pressley PA-C [facility] [address] [facility] [address] [place] [address] 09/09/2015 16:59:46 09/09/2015 18:09:55 Infestation by Sarcoptes scabiei kevin hominis [id number] MD Junito Freire [facility] ([facility]) [address] [place] [address] 09/19/2015 11:04:05 09/20/2015 09:29:45 Anticoagulant therapy 304576419 Z79.01 Is due for INR today. Continue current dose until lab results are available. New script for stockings. F/u in 3 months. Absence seizure 23729755 G40.309 Has not seen neurology in last year. Will place referral. Continue current medication s. Continue seizure precaution s. Body mass index 40+ - severely obese 761164812 Z68.43 Will start food journaling with patient. Provided one week food journal and discussed healthy diet with exercise. Seems motivated to start losing weight. Is interested in weekly weight checks which he may do in the office. [id number] MD Junito Freire FP ([facility]) [address] [place] [address] 11/11/2015 09:35:38 11/14/2015 10:26:07 Knee pain 87341782 M25.[address] referral to ortho and start in physical therapy. Discussed patient's weight being a contributi ng factor to knee pain. Does walk stairs at work which might cause flare up of pain. [id number] MD Junito Lau FP ([facility]) [address] [place] [address] 02/24/2016 11:40:34 02/27/2016 09:26:25 Knee pain 40408216 M25.562 Will see if physical therapy can work both knees. Is waiting for ortho appointmen t to be reschedule d. Body mass index 40+ - severely obese 531918662 Z68.43 Will start food journaling with patient. Provided one week food journal and discussed healthy diet with exercise. Seems motivated to start losing weight. Is interested in weekly weight checks which he may do in the office. [id number] MD Feliciano Lau ([facility]) [address] [place] [address] 06/06/2016 12:04:54 06/07/2016 15:14:19 Obesity 874633250 E66.9 Has been participat ing in [employer]. Reports a 5 pound weight loss since starting. Will talk to cardiology about fitness. Absence seizure 09311044 G40.309 Needs medication s refilled. Concerned that he may of had some seizure activity at home. Needs to f/u with neurology, referral placed. [id number] MD Feliciano Lau ([facility]) [address] [place] [address] 07/18/2016 14:10:26 07/19/2016 10:25:07 Chronic atrial fibrillation 038577347 I48.2 Continue close f/u with cardiology , will request consult notes today. Standing order for INRs. Discussed warning signs for ER. Knee pain 84879811 M25.5 62 Needs note for work. Active immunization 3387 9002 Z23 Obesity 091336434 E66.9 Has been participat ing in [employer]. 9 pound weight loss since last visit. Goal to walk a 5k in the Spring. Depression screening 171 701343 Z13.89 [id number] MD Junito Mason FP ([facility]) [address] [place] [address] 08/06/2016 15:59:00 08/06/2016 17:01:58 Acute upper respiratory infection 06853886 J06.9 Likely viral. Rest and fluids, tylenol as needed. May use humidifier in bedroom to help loosen sputum. Call clinic or RTC if no improvemen t in 7-10 days. [id number] MD Junito Lau FP ([facility]) [address] [place] [address] 09/10/2016 14:36:32 09/11/2016 10:29:36 Adult health examination 844707302 Z00.00 Immunizati ons are up to date. Needs labs. Body mass index 40+ - severely obese 169637349 Z68.43 Continue weight watchers program. Encouraged exercise as tolerated. Discussed walking in a pool and water aerobics to ease joints while still getting aerobic exercise. Anticoagulant therapy 18 2318917 Z79.01 Needs new stocking for DVT rpreventio n. [id number] MD Junito Lau FP ([facility]) [address] [place] [address] 01/21/2017 16:04:13 01/23/2017 11:21:52 Strain of muscle of chest wall 327363805 S29.011A Heat and ice to area. May continue tylenol for pain. May also try OTC biofreeze for pain control. Not a good candidate for muscle relaxers with chronic A. Fib and absent seizures. [id number] JEN Bhatia FP ([facility]) [address] [place] [address] 03/29/2017 14:44:54 04/01/2017 09:57:53 Cough 32539125 R05 Will send for CXR, concern for pneumonia. Benzonatat e for cough. Encouraged OTC medication s for fever/pain . Should increase fluids and rest. Fever 949332742 R50.9 rapid strep negative, will send for culture. Upper resp iratory infection 62959895 J06.9 [id number] [facility] ([facility]) [address] [place] [address] 04/15/2017 10:51:44 04/16/2017 16:37:04 Chronic atrial fibrillation 406211417 I48.2 Continue close f/u with cardiology . Standing order for INRs. Discussed warning signs for ER. Essential hypertension 14740846 I10 Decrease lisinopril back to 5 mg daily. Goal BP less than 130/90 and greater than 100/60. History of pneumonia 161 999475 Z87.01 resolved. has completed course of antibiotic s. RTC or ER for shortness of breath or rapid heart rate/ [id number] [facility] ([facility]) [address] [place] [address] 05/01/2017 11:22:47 05/02/2017 10:28:29 Toothache 34804483 K08.89 No sign of dental abscess. Will provide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
--- OUTSIDE RECORDS SUMMARY | 2025-02-11 12:09 | XMS_ITS | Clinical Summary ---
Author Organization [facility] Address [address] [place] [address] Care Team Providers Care Strap Cutter Name Role Phone Amy Sharma APRN-[facility] Primary Care Provider Source Comments [facility],non-owned Affiliates and Associated Physician Practices is amultiple site organization consisting of ambulatory clinics and hospital sitesin [place], [place], [place]. This disclosure is being madepursuant to the Care Everywhere program and may not contain all information available regarding this patient. Last updated 18.[facility] Allergies No known active allergies Medications * Be aware that medications may not be up to date on this document. Alwaysverify current medications with the patient. digoxin (LANOXIN) 0.25 MG tablet Take 1 (one) tablet by mouth once daily Active fluticasone propionate (FLONASE) 50 MCG/ACT nasal spray [place] 1 (one) spray into each nostril as needed 1 Active cetirizine (ZYRTEC) 10 MG tablet Take 1 (one) tablet by mouth once daily 1 Active acetaminophen (TYLENOL) 500 MG tablet Take 1 (one) tablet by mouth every 6 hours as needed Active warfarin (COUMADIN) 5 MG tablet Take 1 (one) tablet by mouth once daily 90 tablet 4 2 Active Additional Information Patient not taking.Reported on 03/16/2024 warfarin (COUMADIN) 3 MG tablet Take 1 (one) tablet by mouth once daily 90 tablet 4 2 Active Additional Information Patient not taking.Reported on 04/17/2023 Calcium Carb-Cholecalci ferol (CALCIUM 500 + D3 PO) Take 600 mg by mouth 2 times daily Plus D3 20 mcg Active lisinopril (Prinivil; Zestril) 5 MG tablet Take 1 (one) tablet by mouth once daily 2 Active metoprolol tartrate IR (Lopressor) 50 MG tablet Take 1 (one) tablet by mouth 2 times daily 2 Active vitamin D, cholecalciferol , 50 MCG (1999 UT) tablet Take 1 (one) tablet by mouth once daily Active multivitamin daily tablet Take 1 (one) tablet by mouth daily with food Active folic acid (Folvite) 1 MG tabletIndicatio ns:Folate deficiency,Neur opathy Take 1 tablet by mouth once daily 30 tablet 5 4 Active albuterol HFA (Proventil; Ventolin; Proair) 108 (90 Base) MCG/ACT inhaler INHALE 1 TO 2 PUFFS BY MOUTH EVERY 6 HOURS NEEDED FOR WHEEZING 3 Active amitriptyline (Elavil) 25 MG tablet Take 1 (one) tablet by mouth at bedtime 4 Active sodium chloride (Florissant) 0.65 % nasal spray Active topiramate (Topamax) 100 MG tablet Take 3 (three) tablets by mouth 2 times daily 540 tablet 3 4 Active Active Problems Problem Noted Date Diagnosed Date Seizures 05/28/2022 Cardiomyopathy 12/14/2021 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 Pain in both knees 06/01/2019 Generalized idiopathic epile psy and epileptic syndromes, without status epilepticus, not intractable 01/30/2019 Neuropathy 01/30/2019 Folate deficiency 01/30/2019 Class 3 severe obesity witho ut serious comorbidity with body mass index (BMI) of 50.0 to 59.9 in adult 01/24/2019 Chronic venous hypertension (idiopathic) with inflammation of right lower extremity 07/17/2018 Venous stasis dermatitis of right lower extremit y 07/17/2018 Anterior epistaxis 03/14/2018 Subconjunctival hemorrhage of left eye 8 Warfarin anticoagulation 03/14/2018 Atrial fibrillation 09/08/2014 Overview (12/14/2021): Atrial fibrillation Overview: Atrial fibrillation Immunizations Immunization Administration Dates Next Due FLU VACCINE QUAD IIV4 SPLIT 0.25 ML IM 9,07/08/2018,07/18/2016 INFLUENZA VACCINE, QUADR. (F LUZONE; FLULAVAL; FLUARIX; AFLURIA QUADRIVALENT; 6MO+), 0.5 ML (IIV4) 07/17/2021 Family History Medical History Relation Name Comments Hypertension Father CAD (Coronary Artery Disease) Maternal Grandmother Relation Name Status Comments Father Maternal Grandmother Social History Tobacco Use Types Packs/Day Years Used Date Smoking Tobacco: Never Smokeless Tobacco: Never Tobacco Cessation:Counseling Given: Not Answered Alcohol Use Standard Drinks/Week Comments No 0 [...] money to buy more. Never true 05/29/20 22 Within the past 12 months, t he food you bought just didn't last and you didn't have money to get more. Never true 05/29/2022 Sex and Gender Information Value Date Recorded Sex Assigned at Male 11/16/2021 10:44 AM UNIVERSITY PARTNERSHIP REP Legal Sex Male 6:00 PM UNIVERSITY PARTNERSHIP REP Gender Identity Male 11/16/2021 10:44 AM UNIVERSITY PARTNERSHIP REP Sexual Orientation Straight 11/16/2021 10 :44 AM UNIVERSITY PARTNERSHIP REP Last Filed Vital Signs Vital Sign Reading Time Taken Comments Blood Pressure 125/84 03/17/2024 10:25 AM CDT Pulse 75 03/17/2024 10:25 AM CDT Temperature 36.4 C (97.6 F) 04/17/2023 10:32 AM CDT Respiratory Rate 18 06/01/2022 8:07 AM CDT Oxygen Saturation 98% 03/17/2024 10:25 AM CDT Inhaled Oxygen Concentration - - Weight 209.6 kg (462 lb) 03/17/2024 10:25 AM CDT Height 200.7 cm (6' 7 ) 03/17/2024 10:25 AM CDT Body Mass Index 52.05 03/17/2024 10:25 AM CDT Plan of Treatment Upcoming Encounters Date Type Department Care Team (Late st Contact Info) Description 03/23/2025 10:00 AM CDT Office Visit [facility] - Neurology [facility] [place] [address] Alicja Ray APRN-TIN ASSORTER [address] [place] [phone] Health Maintenance Due Date Last Done Comments COLOGUARD (AGES 45-75) - COLON CA SCREENING 1977 COLON MONITORING 1977 COLONOSCOPY - COLON CA SCREENING 1977 CT COLONOGRAPHY - COLON CA SCREENING 1977 Colorectal Cancer Screening 1977 FIT - COLON CA SCREENING 1977 FLEX SIG - COLON CA SCREENING 1977 HIV SCREENING 1992 HEPATITIS C SCREENING 08/30/1995 DTAP/TDAP/TD VACCINES (1 - Tdap) 1996 HEPATITIS B VACCINE (1 of 3 - 19+ 3-dose series) 1996 COVID-19 VACCINE (3 - season) 2024 05/25/2021, 05/04/2021 DEPRESSION SCREENING 10/07/2024 INFLUENZA VACCINE (Season Ended) 2025 07/01/2023, 06/25/2022, 07/17/2021, Additional history exists SCREENING FOR DIABETES 03/17/2027 , 05/28/2022, 11/15/2021, Additional history exists ZOSTER VACCINE (1 of 2) 2027 LIPID TESTING 03/26/2028 03/26/2023, 03/08, 10/22/2018 HIB VACCINE Aged Out No longer eligi ble based on patient's age to complete this topic HPV VACCINE Aged Out No longer eligi ble based on patient's age to complete this topic MENINGOCOCCAL (Group B) VACCINE SHARED DECISION-MAKING Aged Out No longer eligible based on patient's age to complete this topic MENINGOCOCCAL GROUPS A/C/Y/W VACCINE Aged Out No longer eligible based on patient's age to complete this topic PNEUMOCOCCAL VACCINE Aged Out No long er eligible based on patient's age to complete this topic Goals Goal Patient Goal Type Associated Problems Recent Progress Patient-Stated? Author PAIN General No Mannie Lewis, RN Note: Expected end date: 3 months Patient's pain/discomfort is manageable. Interventions: Will take pain medication as prescribed. To remain NWB to LUE, will do gentle elbow ROM exercises. Procedures Procedure Name Priority Date/Time Associated Diagnosis Comments COMPREHENSIVE METABOLIC PANEL Routine 03/17/2024 12:00 PM CDT Seizures from Last 3 Months or Most Recently Relevant to Health Maintenance Results * (ABNORMAL) COMPREHENSIVE METABOLIC PANEL (03/17/2024 12:00 PM CDT) BUN 15 7 - 26 mg/dL 03/17/2024 1:02 PM [facility] Creatinine 1.07 0.71 - 1.16 mg/dL 03/17/2024 1:02 PM [facility] Sodium 142 136 - 145 mmol/L 03/17/2024 1:02 PM [facility] Potassium 4.0 3.5 - 4.5 mmol/L 03/17/2024 1:02 PM [facility] Chloride 110(H) 98 - 107 mmol/L 03/17/2024 1:02 PM [facility] CO2 25 22 - 29 mmol/L 03/17/2024 1:02 PM [facility] Glucose 110 70 - 115 mg/dL 03/17/2024 1:02 PM [facility] Calcium 9.5 8.4 - 10.2 mg/dL 03/17/2024 1:02 PM [facility] Protein Total 6.8 6.0 - 8.3 g/dL 03/17/2024 1:02 PM [facility] Albumin 4.0 3.4 - 5.0 g/dL 03/17/2024 1:02 PM [facility] Bilirubin Total 0.4 0.2 - 1.2 mg/dL 03/17/2024 1:02 PM [facility] Alkaline Phosphatase 75 40 - 150 U/L 03/17/2024 1:02 PM [facility] ALT 22 5 - 55 U/L 03/17/2024 1:02 PM [facility] AST 23 5 - 34 U/L 03/17/2024 1:02 PM [facility] Anion Gap 7 6 - 16 03/17/2024 1:02 PM [facility] BUN/Creatinine Ratio 14 7 - 23 03/17/2024 1:02 PM [facility] Osmolality Calculated 295 275 - 295 mOsm/kg 03/17/2024 1:02 PM [facility] Albumin/Globulin Ratio 1.4 1.1 - 2.3 03/17/2024 1:02 PM [facility] eGFR by CKD-EPI 87(L) >=90 mL/min/1.7 3 m2 03/17/2024 1:02 PM [facility] Blood BLOOD SPECIMEN / Unknown Lab Venipuncture / Unknown 03/17/2024 12:00 PM CDT 03/17/2024 12:29 PM [facility] Brady Cunningham PROFESSOR OF POLITICAL SCIENCE-TIN ASSORTER LAB - CHEMISTRY ORDERABLE S Final Result [facility] [address] [place] [address], [facility] [phone] from Last 3 Months or Most Recently Relevant to Health Maintenance Insurance [employer] Advance Directives * Full Code (Latest Code Status on File) Date Activated Date Inactivated Comments 05/28/2022 2:25 PM 06/01/2022 12:44 PM Care Teams Strap Cutter Relationship Specialty Start Date End Date Amy Sharma APRN-CNP [address] [place] [phone] PCP - General 01/03/16
[2025-02-11 12:47] LABS: INR 2.3; Prothrombin Time 25.8 Seconds (11.1-14.7)
== END 2025-02-11 11:57 | disposition home or self-care (01) ==
LOC: ANHLAB 12:06
PROVIDERS: PCP Nurse Practitioner Family; Visit Provider Specialist
DX: Z79.01 Long term (current) use of anticoagulants (principal)
CPT/HCPCS: 36415; 85610

== ENCOUNTER 2025-04-05 16:18 | Outpatient (CLI) | payer OTHER, SELFPAY ==
--- OUTSIDE RECORDS SUMMARY | 2025-04-05 16:26 | XMS_ITS | Encounter Summary ---
Author Organization [facility] Address [address] [place] [address] Care Team Providers Care Marine Electrician Name Role Phone Cindi Wadsworth MD Primary Care Provider [phone] gAusto Smith MD [facility]available [facility] MD Unavailable [phone] Encounter Details Date Type Department Care Team (Latest Contact Info) Description 08/12/2018 Abstract [facility] Medical Group Naif Nunez MD Social History Tobacco Use Types Packs/Day Years Used Date Smoking Tobacco: Never Smokeless Tobacco: Never Alcohol Use Standard Drinks/Week Comments No 0 (1 standard drink = 0.6 oz pur e alcohol) AUDIT-C Answer Date Recorded Frequency of Alcohol Consumption Never 06/24/2018 Average Number of Drinks Not on file 018 Frequency of Binge Drinking Not on file 06/07 Sex and Gender Information Value Date Recorded Sex Assigned at Not on file Legal Sex Male 5:00 PM CDT Gender Identity Not on file Sexual Orientation Not on file documented as of this encounter Plan of Treatment Not on file documented as of this encounter Visit Diagnoses Not on filedocumented in this encounter Care Teams Marine Electrician Relationship Specialty Start Date End Date Cindi Wadsworth MD [address] [facility] [address] [place] [address] PCP - General 03/29/17 Agusto Smith MD Three [facility]. [facility] [address] [place] [address] Surgeon VASCULAR SURGERY 06/24/18 Ghanshyam Zepeda MD Three [facility]. [facility] [address] [place] [address] EP Flight Steward CARDIOVASCULAR DISEASE 12/04/18 documented as of this encounter
--- OUTSIDE RECORDS SUMMARY | 2025-04-05 16:26 | XMS_ITS | Referral Summary ---
Author Organization [facility] Address [address] [place] [address] Care Team Providers Care Artillery Officer Name Role Phone Cindi Wadsworth MD Unavailable Amy Sharma NP Primary Care Provider [phone] Encounters Date Type Department Care Team Description 02/11/2025 Orders Only [facility] Health Information Management [address] [place] [address] Scanning, Provider 02/11/2025 Anticoagulation Visit [facility] Medical Group Cardiology [address] [address] [address] [place] [address] Jose King RN Atrial fibrillation, unspecified type (HCC) (Primary Dx) 02/11/2025 Telephone [facility] Medical Group Cardiology [address] [facility] [address] [place] [phone] Ghanshyam Jones MD from Last 3 Months Allergies No known [...] (2,000 Units total) by mouth daily Active digoxin (LANOXIN) 250 mcg (0.25 mg) [...] FOR FUTURE REFILLS. 90 tablet 5 Active metoprolol tartrate (LOPRESSOR) 50 mg immediate release tablet Take 1 tablet by mouth twice daily 180 tablet 5 Active metoprolol tartrate (LOPRESSOR) 50 mg immediate release tablet Take 1 tablet by mouth twice daily 180 tablet 3 4 025 Discontinued Active Problems Problem Noted Date [...] on file Legal Sex Male 4:06 AM STRESS TEST TECHNICIAN Gender Identity Male 12/29/2020 8:06 AM CDT Sexual Orientation Straight 12/29/2020 8: 06 AM CDT Last Filed Vital Signs Vital Sign Reading Time Taken Comments Blood Pressure 120/80 10/22/2024 10:47 AM STRESS TEST TECHNICIAN Pulse 80 10/22/2024 10:47 AM STRESS TEST TECHNICIAN Temperature 36.5 C (97.7 F) 05/02/2024 1:30 PM CDT Respiratory Rate 18 05/02/2024 1:30 PM CDT Oxygen Saturation 96% 10/22/2024 10: 47 AM STRESS TEST TECHNICIAN Inhaled Oxygen Concentration - - Weight 210.4 kg (463 lb 14.4 oz) 2024 10:47 AM STRESS TEST TECHNICIAN Height 198.1 cm (6' 6) 10/22/2024 10:4 7 AM STRESS TEST TECHNICIAN Body Mass Index 53.61 10/22/2024 10:47 AM STRESS TEST TECHNICIAN Plan of Treatment Not on file Procedures Procedure Name Priority Date/Time Associated Diagnosis Comments SCAN - LABS 02/11/2025 PROTIME-INR Routine 02/11/2025 from Last 3 Months Results * SCAN - LABS (02/11/2025) us Provider Scanning Final Result * (ABNORMAL) Protime-INR (02/11/2025) INR 2.30(A) 0.90 - 1.10 EXTERNAL LAB Blood 02/11/2025 Historical Provider LAB BLOOD ORDERABLES Magaly mcrae Result EXTERNAL LAB from Last 3 Months Insurance [facility] Care Teams Artillery Officer Relationship Specialty Start Date End Date Amy Sharma NP [address] [place] [id number] PCP - General Nurse Practitioner 05/02/24 Cindi Wadsworth MD 03/30/17
--- OUTSIDE RECORDS SUMMARY | 2025-04-05 16:26 | XMS_ITS | Encounter Summary ---
Author Organization [facility] Healthcare Address [address] [place] [address] Care Team Providers Care Quality Control Supervisor Name Role Phone Cindi Wadsworth MD Unavailable Amy Sharma NP Primary Care Provider [phone] Encounter Details Date Type Department Care Team (Late st Contact Info) Description 02/11/2025 Orders Only [facility] Health Information Management [address] [place] [address] Scanning, Provider Social History Tobacco Use Types Packs/Day Years [...] on file Legal Sex Male 4:06 AM BRICK SETTER OPERATOR Gender Identity Male 12/29/2020 8:06 AM CDT Sexual Orientation Straight 12/29/2020 8: 06 AM CDT documented as of this encounter Plan of Treatment Not on file documented as of this encounter Procedures Procedure Name Priority Date/Time Associated Diagnosis Comments SCAN - LABS 02/11/2025 documented in this encounter Results * SCAN - LABS (02/11/2025) us Provider Scanning Final Result documented in this encounter Visit Diagnoses Not on filedocumented in this encounter Care Teams Quality Control Supervisor Relationship Specialty Start Date End Date Amy Sharma NP [address] [place] [id number] PCP - General Nurse Practitioner 05/02/24 Cindi Wadsworth MD 03/30/17 documented as of this encounter
--- OUTSIDE RECORDS SUMMARY | 2025-04-05 16:26 | XMS_ITS | Encounter Summary ---
Author Organization [facility] Health Address [address] [place] [address] Care Team Providers Care Equipment Processer Storage Name Role Phone [facility] Primary Care Provider Encounter Details Date Type Department Care Team (Late st Contact Info) Description 02/26/2023 Telephone [facility] - Neurology [address] [facility] [place] [address] Brady Cunningham [address] [place] [address] Social History Tobacco Use Types Packs/Day Years [...] Sex Assigned at Male 11/16/2021 10:44 AM ROCK PICKER Legal Sex Male 6:00 PM ROCK PICKER Gender Identity Male 11/16/2021 10:44 AM ROCK PICKER Sexual Orientation Straight 11/16/2021 10 :44 AM ROCK PICKER documented as of this encounter Functional Status [...] Care Team (Late st Contact Info) Description 03/23/2026 11:00 AM CDT Office Visit [facility] - Neurology [address] [place] [address] Alicja Ray APRN-CNP [address] [place] [address] documented as of this encounter Goals Goal [...] on filedocumented in this encounter Care Teams Equipment Processer Storage Relationship Specialty Start Date End Date Amy Sharma APRN-[facility] [address] [place] [phone] PCP - General 01/03/16 documented as of this encounter
--- OUTSIDE RECORDS SUMMARY | 2025-04-05 16:26 | XMS_ITS | Clinical Summary ---
Author Organization [facility] Address [address] [place] [address] Care Team Providers Care Methodologist Name Role Phone Cindi Wadsworth MD Unavailable Amy Sharma NP Primary Care Provider [phone] Allergies No known active allergies Medications topiramate [...] BY MOUTH ONCE DAILY OR DIRECTED PER (TOTAL DAILY DOSE IS 16 MG). INR [...] Department Care Team Description 02/11/2025 Orders Only [facility] Health Information Management [address] [place] [address] Scanning, Provider 02/11/2025 Anticoagulation Visit [facility] Medical [facility] Cardiology [address] [place] [address] Jose King RN Atrial fibrillation, unspecified type (HCC) (Primary Dx) 02/11/2025 Telephone [facility] Cardiology [address] [place] [address] Ghanshyam Jones MD from Last 3 Months Medical History Medical History Date Comments Seizure disorder (HCC) Seizure D isorder Adiposity Obesity Hx Other Medical Sleep Apnea, CP AP Hx Other Medical Varicose Veins Hx Other Medical RLE DVT 08/20; Comments: [facility] 09/08/2014 - Cardiomyopathy (HCC) Heart disease 2011 Sleep apnea 2012 Family History Medical History Relation Name Comments Heart disease Father Geraldo Bejarano Jr Hypertension Father Geraldo Bejarano Jr Coronary artery disease Maternal Grandmother Coronary Artery Disease; Cancer Paternal Grandmother Dee Casanova Heart disease Paternal Grandmother Dee [place] Edilberto Relation Name Status Comments Father Geraldo Bejarano Jr Maternal Grandmother Alive Paternal Grandmother Dee [place] Edilberto Social History Tobacco Use Types Packs/Day Years [...] on file Legal Sex Male 4:06 AM TYPE CASTING MACHINE OPERATOR Gender Identity Male 12/29/2020 8:06 AM CDT Sexual Orientation Straight 12/29/2020 8: 06 AM CDT Obstetrics History Last Filed Vital Signs Vital Sign Reading Time Taken Comments Blood Pressure 120/80 10/22/2024 10:47 AM TYPE CASTING MACHINE OPERATOR Pulse 80 10/22/2024 10:47 AM TYPE CASTING MACHINE OPERATOR Temperature 36.5 C (97.7 F) 05/02/2024 1:30 PM CDT Respiratory Rate 18 05/02/2024 1:30 PM CDT Oxygen Saturation 96% 10/22/2024 10: 47 AM TYPE CASTING MACHINE OPERATOR Inhaled Oxygen Concentration - - Weight 210.4 kg (463 lb 14.4 oz) 2024 10:47 AM TYPE CASTING MACHINE OPERATOR Height 198.1 cm (6' 6) 10/22/2024 10:4 7 AM TYPE CASTING MACHINE OPERATOR Body Mass Index 53.61 10/22/2024 10:47 AM TYPE CASTING MACHINE OPERATOR Plan of Treatment Health Maintenance Due Date Last Done Comments Colon Cancer Screening-Colonoscopy 1977 Depression Screening 1977 Hepatitis C Screening 1977 Hepatitis B Screening 1995 Regular Well Visit/Exam 18-64 1995 Covid-19 Vaccine ( season) 2024 05/25/2021, 05/04/2021 DTaP/Tdap/Td Vaccine (2 [...] 1.10 EXTERNAL LAB Blood 02/11/2025 Historical Provider MD LAB BLOOD ORDERABLES Magaly l Result EXTERNAL LAB from Last 3 Months Insurance [facility] Care Teams Methodologist Relationship Specialty Start Date End Date Amy Sharma NP [address] [place] [phone] PCP - General Nurse Practitioner 05/02/24 Cindi Wadsworth MD 03/30/17
--- OUTSIDE RECORDS SUMMARY | 2025-04-05 16:26 | XMS_ITS | Clinical Summary ---
Author Organization [facility] Address [address] [place] [address] Phone Care Team Providers Care Coal Sampler Name Role Phone Amy Sharma APRN Primary Care Provider [phone] Allergies No known active allergies Medications LISINOPRIL [...] Active Active Problems No known active problems Encounters Date Type Department Care Team Description 03/24/2025 1:55 PM CDT Urgent Care Visit [facility] [address] [place] [address] Kushal Young, REESE Acute cough (Primary Dx); Viral illness Discharge Disposition: Discharged to home or Selfcare 03/24/2025 Travel from Last 3 Months Immunizations Immunization Administration Dates Next Due Hepatitis A Vaccine,unspecified Formulation 06/2009 Influenza Vaccine, Quadrivalent, PF 07/17/2021 Influenza, Injectable, Quadrivalent 08/10/2019,1 ,07/18/2016 Social History Tobacco Use Types Packs/Day Years Used Date Smoking Tobacco: Never Smokeless Tobacco: Never Alcohol Use Standard Drinks/Week Comments No 0 (1 standard drink = 0.6 oz pur e alcohol) Sexually Active Control Partners Comments Not Currently Sex and Gender Information Value Date Recorded Sex Assigned at Not on file Legal Sex Male 1:50 PM CREEL OPERATOR Gender Identity Not on file Sexual Orientation Not on file Last Filed Vital Signs Vital Sign Reading Time Taken Comments Blood Pressure 110/66 03/24/2025 1:44 PM CDT Pulse 77 03/24/2025 1:44 PM CDT Temperature 36.4 C (97.6 F) 03/24/2025 1:44 PM CDT Respiratory Rate 16 03/24/2025 1:44 PM CDT Oxygen Saturation 94% 03/24/2025 1:44 PM CDT Inhaled Oxygen Concentration - - Weight 199.6 kg (440 lb) 10/02/2021 4:36 PM CREEL OPERATOR Height 198.1 cm (6' 6) 10/02/2021 4:36 PM CREEL OPERATOR Body Mass Index 50.85 10/02/2021 4:36 PM CREEL OPERATOR Plan of Treatment Health Maintenance Due Date Last Done Comments Hepatitis C Virus (HCV) Screening 1977 Hepatitis B Immunization (1 of 3 - 19+ 3-dose series) 1996 Cologuard 2022 Colonoscopy 2022 Colorectal Cancer Screening 2022 Immunochemical Fecal Occult Blood 2022 SARS-COV-2 Immunization ( - 2023- season) 2024 05/25/2021, 05/04/2021 Respiratory Syncytial Virus (RSV) Immunization (Adult) (1 - 1-dose 75+ series) 2052 DTaP/Tdap/Td Immunization Discontinued 06/25/2022 TdaP Immunization Completed 06/25/2022 Influenza Immunization Completed 4, 07/01/2023, 06/25/2022, Additional history exists Human Papillomavirus (HPV) Immunization Aged Out No longer eligible based on patient's age to complete this topic Meningococcal Immunization (ACWY) Aged Out No longer eligible based on patient's age to complete this topic Pneumococcal Immunization Combined Aged Out No longer eligible based on patient's age to complete this topic Rotavirus Immunization Aged Out No lo nger eligible based on patient's age to complete this topic Procedures Procedure Name Priority Date/Time Associated Diagnosis Comments POC SARS-COV-2 BY MOLECULAR Routine 03/24/2025 2:04 PM CDT Acute cough from Last 3 Months Results * POC SARS-COV-2 BY MOLECULAR (03/24/2025 2:04 PM CDT) SARSCOV2 Negative Negative, INVALID PROCEDURE CONTROL Valid 03/24/2025 2:04 PM CDT Kushal Young [facility] POINT OF CARE TESTING (MANUAL ) Final Result from Last 3 Months Insurance MEDICAID [employer] Care Teams Coal Sampler Relationship Specialty Start Date End Date Amy Sharma APRN [address] [place] [address] PCP - General Family Medicine 08/27/16
--- OUTSIDE RECORDS SUMMARY | 2025-04-05 16:26 | XMS_ITS | Encounter Summary ---
Author Organization [facility] Address [address] [place] [address] Care Team Providers Care Boat Dispatcher Name Role Phone Cindi Wadsworth MD Primary Care Provider [phone] Cindi Wadsworth MD Unavailable Jose Sharma MD Primary Care Provider Amy Sharma NP Primary Care Provider [phone] Encounter Details Date Type Department Care Team (Late st Contact Info) Description 02/18/2024 Orders Only [facility] Operating Room [address] [place] [address] Suellen Miller MD PhD [address] [id number] [place] [address] Varicose veins of both lower extremities with [...] on file Legal Sex Male 4:06 AM CARE COMPANION Gender Identity Male 12/29/2020 8:06 AM CDT [...] examination documented in this encounter Care Teams Boat Dispatcher Relationship Specialty Start Date End Date Cindi Wadsworth MD PCP - General 03/30/17 04/01/24 Jose Sharma MD [address] [place] [address] PCP - General Internal Medicine 04/02/24 05/01/24 Amy Sharma NP [address] [place] [address] PCP - General Nurse Practitioner 05/02/24 Cindi Wadsworth MD 03/30/17 documented as of this encounter
--- OUTSIDE RECORDS SUMMARY | 2025-04-05 16:26 | XMS_ITS | Clinical Summary ---
Author Organization [facility] Address [address] [place] [address] Care Team Providers Care Heat Treating Furnace Tender Name Role Phone Cindi Wadsworth MD Primary Care Provider [phone] Agusto Smith MD Unavailable Ghanshyam Zepeda MD Unavailable [phone] Allergies No known active allergies Medications lisinopril 5 MG tablet Take 1 tablet (5 mg total) by mouth daily. 30 tablet 07/17/2018 Active warfarin 5 MG tablet Take as directed 30 tablet 07/17/2018 Active warfarin 3 MG tablet Take as directed 30 tablet 07/17/2018 Active acetaminophen 500 MG tablet Take 500 mg by mouth every 6 (six) hours as needed for Pain. Active topiramate 100 MG tablet Take 3 tabs in morning and 4 tabs at night 04/27/2019 Active folic acid 1 MG tablet Take 1 mg by mouth daily. 11 06/08/2019 Active dilTIAZem XR 180 MG 24 hr capsule Take 1 capsule (180 mg total) by mouth daily. 30 capsule 7 06/25/2019 Active metoprolol tartrate 100 MG tablet Take 1.5 tablets (150 mg total) by mouth 2 (two) times daily. Must Call to Make an Appointment, or send to PCP 15 tablet 05/05/2020 Active Active Problems Problem Noted Date Diagnosed Date Pain in both knees, unspecified chronicity 06/01 Class 3 severe obesity witho ut serious comorbidity with body mass index (BMI) of 50.0 to 59.9 in adult, unspecified obesity type 01/24/2019 Chronic venous hypertension (idiopathic) with inflammation of right lower extremity 07/17/2018 Varicose veins of lower extremity with pain, su ateral 07/17/2018 Venous stasis dermatitis of right lower extremit y 07/17/2018 Subconjunctival hemorrhage of left eye 8 Atrial fibrillation ([facility]) 09/08/2014 Overview (12/15/2018): Overview: Atrial fibrillation Cardiomyopathy ([facility]) Atrial flutter ([facility]) Social History Tobacco Use Types Packs/Day Years [...] Sign Reading Time Taken Comments Blood Pressure 100/68 06/25/2019 12:11 PM CDT Pulse 111 06/25/2019 12:11 PM CDT Temperature - - Respiratory Rate - - Oxygen Saturation 97% 12/25/2018 1:25 PM CDT Inhaled Oxygen Concentration - - Weight 199.2 kg (439 lb 3.2 oz) 019 12:11 PM CDT Height 188 cm (6' 2) 06/25/2019 12:11 PM CDT Body Mass Index 56.39 06/25/2019 12:11 PM CDT Plan of Treatment Health Maintenance Due Date Last Done Comments Colorectal Cancer Screening Colonoscopy (10 Years) 1977 Annual Physical 1980 Hepatitis C 1995 DTaP, Tdap and Td Vaccines ( 1 - Tdap) 1996 Hepatitis B Vaccines (1 of 3 - 19+ 3-dose series) 1996 COVID-19 Vaccine ( - 2023-2 5 season) 2024 Meningococcal B Vaccine Aged Out No l onger eligible based on patient's age to complete this topic Meningococcal Vaccine Aged Out No jose j ana eligible based on patient's age to complete this topic Pneumococcal Vaccine: Pediat rics (0 to 5 Years) and At-Risk Patients (6 to 49 Years) Aged Out No longer eligible b ased on patient's age to complete this topic RSV Immunizations Under 20 Months Aged Out No longer eligible based on patient's age to complete this topic Insurance Care Teams Heat Treating Furnace Tender Relationship Specialty Start Date End Date Cindi Wadsworth MD [address] [facility] [address] [place] [address] PCP - General 03/29/17 Agusto Smith [facility] [address] [address] Surgeon VASCULAR SURGERY 06/24/18 Ghanshyam Zepeda MD [address] [id number] EP Field Support Representative CARDIOVASCULAR DISEASE 12/04/18
--- OUTSIDE RECORDS SUMMARY | 2025-04-05 16:26 | XMS_ITS | Encounter Summary ---
Author Organization [facility] Address [address] [place] [address] Phone Care Team Providers Care Vocational Trainer Name Role Phone Cindi Wadsworth MD Primary Care Provider [phone] Cindi Wadsworth MD Unavailable Jose Sharma MD Primary Care Provider Amy Sharma NP Primary Care Provider [phone] Encounter Details Date Type Department Care Team (Late st Contact Info) Description 02/26/2024 Orders Only [facility] Surgery [address] [facility] Advanced Medicine 8th [place] [address] [place] [address] Suellen Miller MD PhD [address] [facility] [id number] [place] [address] Varicose veins of both lower extremities with [...] on file Legal Sex Male 4:06 AM CYCLE CONSULTANT Gender Identity Male 12/29/2020 8:06 AM CDT Sexual Orientation Straight 12/29/2020 8: 06 AM CDT documented as of this encounter Plan of Treatment Not on file documented as of this encounter Visit Diagnoses Diagnosis Varicose veins of both lower extremities with pain- Primary Encounter for other preprocedural examination documented in this encounter Care Teams Vocational Trainer Relationship Specialty Start Date End Date Cindi Wadsworth MD PCP - General 03/30/17 04/01/24 Jose Sharma MD [address] [place] [address] PCP - General Internal Medicine 04/02/24 05/01/24 Amy Sharma NP [address] [address] PCP - General Nurse Practitioner 05/02/24 Cindi Wadsworth MD 03/30/17 documented as of this encounter
--- OUTSIDE RECORDS SUMMARY | 2025-04-05 16:26 | XMS_ITS | Clinical Summary ---
Author Organization [facility] [employer] Address [address] [place] [address] Care Team Providers Care Siebel Crm Developer Name Role Phone Amy Sharma APRN-[facility] Primary Care Provider Source Comments [facility],non-owned Affiliates and Associated Physician Practices is amultiple site organization consisting of ambulatory clinics and hospital sitesin [place], [place], [place] and [place]. This disclosure is being madepursuant to the Care Everywhere program and may not contain all information available regarding this patient. Last updated 18.[facility] [employer] [facility] Allergies No known active allergies Medications * Be aware that medications may not be up to date on this document. Alwaysverify current medications with the patient. digoxin (LANOXIN) 0.25 MG tablet Take 1 (one) tablet by mouth once daily Active fluticasone propionate (FLONASE) 50 MCG/ACT nasal spray [place] 1 (one) spray into each nostril as needed 1 Active cetirizine (ZYRTEC) 10 MG tablet Take 1 (one) tablet by mouth once daily 1 Active acetaminophen (TYLENOL) 500 MG tablet Take 1 (one) tablet by mouth every 6 hours as needed Active warfarin (COUMADIN) 5 MG tablet Take 1 (one) tablet by mouth once daily 90 tablet 4 2 Active warfarin (COUMADIN) 3 MG tablet Take 1 (one) tablet by mouth once daily 90 tablet 4 2 Active Calcium Carb-Cholecalci ferol (CALCIUM 500 + D3 PO) Take 600 mg by mouth 2 times daily Plus D3 20 mcg Active lisinopril (Prinivil; Zestril) 5 MG tablet Take 1 (one) tablet by mouth once daily 2 Active metoprolol tartrate IR (Lopressor) 50 MG tablet Take 1 (one) tablet by mouth 2 times daily 2 Active vitamin D, cholecalciferol , 50 MCG (2000 UT) tablet Take 1 (one) tablet by mouth once daily Active multivitamin daily tablet Take 1 (one) tablet by mouth daily with food Active albuterol HFA (Proventil; Ventolin; Proair) 108 (90 Base) MCG/ACT inhaler INHALE 1 TO 2 PUFFS BY MOUTH EVERY 6 HOURS NEEDED FOR WHEEZING 3 Active sodium chloride ([place]) 0.65 % nasal spray Active topiramate (Topamax) 100 MG tabletIndicatio ns:Seizures (HCC) Take 3 (three) tablets by mouth 2 times daily 540 tablet 3 5 Active folic acid (Folvite) 1 MG tabletIndicatio ns:Folate deficiency,Neur opathy Take 1 tablet by mouth once daily 30 tablet 5 4 03/23/20 25 Discontinu ed(List Clean-Up) amitriptyline (Elavil) 25 MG tablet Take 1 (one) tablet by mouth at bedtime 4 03/23/20 25 Discontinu ed(List Clean-Up) topiramate (Topamax) 100 MG tablet Take 3 (three) tablets by mouth 2 times daily 540 tablet 3 4 03/23/20 25 Discontinu ed(Reorder ) topiramate (Topamax) 100 MG tabletIndicatio ns:Seizures (HCC) Take 3 (three) tablets by mouth 2 times daily 540 tablet 3 5 03/23/20 25 Discontinu ed(Reorder ) Active Problems Problem Noted Date Diagnosed Date [...] Overview (12/14/2021): Atrial fibrillation Overview: Atrial fibrillation Encounters Date Type Department Care Team Description 03/23/2025 10:00 AM CDT Office Visit [facility] - Neurology [facility] [place] [address] Alicja Ray APRN-[facility] Seizures (HCC) (Primary Dx); Low vitamin D level from Last 3 Months Immunizations Immunization Administration Dates Next Due FLU [...] Sex Assigned at Male 11/16/2021 10:44 AM AUTOMOTIVE SERVICES MANAGER Legal Sex Male 6:00 PM AUTOMOTIVE SERVICES MANAGER Gender Identity Male 11/16/2021 10:44 AM AUTOMOTIVE SERVICES MANAGER Sexual Orientation Straight 11/16/2021 10 :44 AM AUTOMOTIVE SERVICES MANAGER Last Filed Vital Signs Vital Sign Reading Time Taken Comments Blood Pressure 112/81 03/23/2025 11:15 AM CDT Pulse 85 03/23/2025 11:15 AM CDT Temperature 36.4 C (97.6 F) 04/17/2023 10:32 AM CDT Respiratory Rate 18 06/01/2022 8:07 AM CDT Oxygen Saturation 98% 03/23/2025 11:15 AM CDT Inhaled Oxygen Concentration - - Weight 208.7 kg (460 lb) 03/23/2025 11:15 AM CDT Height 200.7 cm (6' 7) 03/17/2024 10:25 AM CDT Body Mass Index 51.82 03/17/2024 10:25 AM CDT Plan of Treatment Upcoming Encounters Date Type Department Care Team (Late st Contact Info) Description 03/23/2026 11:00 AM CDT Office Visit [facility] - Neurology [address] [place] [id number] Alicja Ray, INORGANIC CHEMISTRY TEACHER-SUPERVISOR PHOTOENGRAVING [address] [place] [id number] Health Maintenance Due Date Last Done Comments [...] 3-dose series) 1996 COVID-19 VACCINE (3 - 2023- season) 2024 05/25/2021, 05/04/2021 DEPRESSION SCREENING 10/07/2024 ZOSTER VACCINE (1 of 2) 2027 LIPID TESTING 03/26/2028 03/26/2023, 03/08, 10/22/2018 INFLUENZA VACCINE Completed 08/10/2024, , 06/25/2022, Additional history exists HIB VACCINE Aged Out No longer eligi [...] LUE, will do gentle elbow ROM exercises. Insurance [facility] Advance Directives * Full Code (Latest Code Status on File) Date Activated Date Inactivated Comments 05/28/2022 2:25 PM 06/01/2022 12:44 PM Care Teams Siebel Crm Developer Relationship Specialty Start Date End Date Amy Sharma APRN-CNP [address] [place] [address] [address] [place], [place] [id number] PCP - General 01/03/16
--- OUTSIDE RECORDS SUMMARY | 2025-04-05 16:27 | XMS_ITS | Clinical Summary ---
Author Organization [facility] Farrah Bauman Address [address] [place] [address] Care Team Providers Care Gold Leaf Laborer Name Role Phone Zachary Amy JOHNSON Primary Care Provider [phone] Allergies No known active allergies Medications fluticasone propionate (FLONASE) 50 mcg/spray [place], Suspension nasal inhaler USE 1 SPRAY(S) IN [...] 9:28 AM CDT Height 198.1 cm (6' 6) 08/05/2020 9:28 AM CDT Body Mass Index [...] 08/10/2019, 07/08/2018, Additional history exists Care Teams Gold Leaf Laborer Relationship Specialty Start Date End Date Amy Sharma NP [address] [place] [address] PCP - General Nurse Practitioner Family 07/01/20
--- OUTSIDE RECORDS SUMMARY | 2025-04-05 16:27 | XMS_ITS | Data Portability ---
Author Organization [facility] ERUMLory Address [address] [place] [address] Care Team Providers Care Die Technician Name Role Phone EROS BAPTISTE Primary Care Provider Unavailab le Assessment No assessment recorded. Plan of Treatment Reminders Order Date Submit Date Provider Last Modified By Organization Details Last Modified Time Details Appointments ANY 15 2024 01:00P M Eros Baptiste, [employer]-C Not available Not available Not available Lab rapid strep group A, throat 2024 025 In-Office Order, Internal Use Only DO Not Attach Compendium DO Not Attach Compendium, Do Not Delete/merge, [id number] 11/12/2024 12:46:39 rsv (respirat ory syncytial virus), rapid, nasophary ngeal 2024 025 In-Office Order, Internal Use Only DO Not Attach Compendium DO Not Attach Compendium, Do Not Delete/merge, [id number] 11/12/2024 12:46:39 rapid SARS CoV 2 Ag, QL IA, respirato ry specimen 2024 025 In-Office Order, Internal Use Only DO Not Attach Compendium DO Not Attach Compendium, Do Not Delete/merge, [id number] 11/12/2024 12:46:39 streptoco ccus group A, culture, throat 2024 025 [facility], [address], [address], [place], [address], 11/16/2024 07:07:21 influenza virus A + B + SARS-CoV- 2 (COVID19) Ag panel, rapid IA, upper respirato ry specimen 2024 025 [email or web address] In-Office Order, Internal Use Only DO Not Attach Compendium DO Not Attach Compendium, Do Not Delete/merge, [id number] 10/29/2024 16:44:51 Referral None recorded. Procedures None recorded. Surgeries None recorded. Imaging None recorded. Medication Orders promethaz ine-DM 6.25 mg-15 mg/5 mL oral syrup 2024 025 [facility], [address] [place] [address], [id number], 03/26/2025 10:46:27 Airsupra 90 mcg-80 mcg/actua tion HFA aerosol inhaler [email or web address] [facility], [address] [place] [address], [id number], 03/26/2025 11:00:12 loperamid e 2 mg capsule 2024 [facility], [address] [place] [address], [id number], 03/26/2025 10:46:29 Paxlovid 300 mg (150 mg x 2)-100 mg tablets in a dose pack 2024 025 [facility], [address] [place] [address], [id number], 03/26/2025 10:55:55 Tamiflu 75 mg capsule 2024 [facility] [address], [address] [place] [address], [id number], 03/26/2025 11:22:41 benzonata te 200 mg capsule 2024 025 [facility], [address] [place] [address], [id number], 03/26/2025 10:45:15 Patient TargetsNo targets recorded. Patient Instructions Encounter Date Encounter Id Patient Instructions Last Modified By Organization Details Last Modified Time 10/29/2024 [id number] learning about t he mediterranean diet Not available 10/29/2024 16:44:51 A healthy lifestyle: care instructions Not available 10/29/2024 22:52:42 11/12/2024 [id number] body mass index: care instructions Not available [...] Order d not applic able Not Available [facility] (Cologuard Orders Only) [address], [place], [address], 07/08/2024 08:11:40 10/29/1910/29/2024 influ kristine virus A + B + SARS- CoV-2 (COVI D19) Ag panel , rapid IA, upper respi rator y speci men Flu A negati ve Not Available In-Office Order Internal Use Only DO Not Attach Compendium DO Not Attach Compendium, Do Not Delete/merge, [id number] 10/29/2024 16:03:36 10/29/1910/29/2024 influ kristine virus A + B + SARS- CoV-2 (COVI D19) Ag panel , rapid IA, upper respi rator y speci men Flu B negati ve Not Available In-Office Order Internal Use Only DO Not Attach Compendium DO Not Attach Compendium, Do Not Delete/merge, [id number] 10/29/2024 16:03:36 10/29/19 25 10/29/2024 influ kristine virus A + B + SARS- CoV-2 (COVI D19) Ag panel , rapid IA, upper respi rator y speci men Rapid SARS CoV 2 Ag, QL IA, respiratory specimen negati ve Not Available In-Office Order Internal Use Only DO Not Attach Compendium DO Not Attach Compendium, Do Not Delete/merge, 10/29/2024 16:03:36 11/12/19 25 11/16/2024 BETA STREP GP A CULTU RE beta strep gp A culture NEGATI VE Refer ence Range : Negat ritchie Not Available [facility] ([facility]) [address] [facility] [facility], [place], [address], 11/16/2024 07:07:21 11/12/19 25 11/12/2024 rsv (resp irato ry syncy tial virus ), rapid , nasop haryn geal RSV negati ve Not Available In-Office Order Internal Use Only DO Not Attach Compendium DO Not Attach Compendium, Do Not Delete/merge, 11/12/2024 12:39:47 11/12/19 25 11/12/2024 rsv (resp [...] Delete/merge, 11/12/2024 12:38:57 11/12/19 25 11/12/2024 rapid SARS CoV 2 Ag, QL IA, respi rator y speci men rapid SARS CoV 2 Ag, QL IA, respiratory specimen negati ve Not Available In-Office Order Internal Use Only DO Not Attach Compendium DO Not Attach Compendium, Do Not Delete/merge, [id number] 11/12/2024 12:40:59 Result Notes None recorded. Problems Name Problem SNOMED Code Status Onset Date Resolution Date Notes Provider Name and Address Organization Details Recorded Time Cardiomy opathy 28127331 Active 09/2024- EF 43% on ECHO JEN Bhatia Attn: Accountin g,[address] [facility], [place], [address], [place] - [facility] 5 16:06:55 Pain in right lower limb 555250449 Active JEN Bhatia Attn: Accountin g,[address] [facility], [place], [address], [place] [facility] 8 16:27:03 Sore throat 957082518 Active 2024 Jennifer Higgins MA null, [place] - [facility] 5 12:39:05 Infestat ion by Sarcopte s scabiei kevin hominis [id number] Completed 07/18/2016 Removal Reason: resolved JEN Bhatia Attn: Accountin g,[address] [facility], [place], [address], [place] - [facility] 6 14:35:24 Body mass index 40+ - severely obese 100473602 Active JEN Bhatia Attn: Accountin g,[address] [facility], [place], [address], [place] [facility] 8 16:27:03 Knee pain Active JEN Bhatia Attn: Accountin g,[address] [facility], [place], [address], [place] [facility] 8 16:27:03 Absence seizure 87620041 Active JEN Bhatia Attn: Accountin g,[address] [facility], [place], [address], [place] [facility] 8 16:27:03 Chronic atrial fibrilla tion 770349144 Active JEN Bhatia Attn: Accountin g,[address], [place], [address], [facility] - [facility] 8 16:27:03 Obesity 258862707 Active Eros JEN Baptiste Attn: Licha g,[address], [place], [address], [facility] - [facility] 8 16:27:03 Problem Notes None recorded. Procedures Surgical History Date Name Laterality Status Provider Name and Address Organization Details Recorded Time 10/07/2002 [facility] 09/[facility]/2015 11:16:30 Imaging Results None recorded. Procedure Notes None recorded. Medical Equipment None Reported. Allergies No known drug allergies Medications Name Sig Start Date Stop Date Status Note LastModified by Organization Details LastModified Time amoxicillin 500 mg capsule TAKE 1 CAPSULE BY MOUTH EVERY 8 HOURS 03/26 completed Not Available Not Available Not Available methocarbam ol 500 mg tablet TAKE 1 TABLET BY MOUTH TWICE DAILY 03/26 completed Not Available Not Available Not Available promethazin e-DM 6.25 mg-15 mg/5 mL oral syrup TAKE 10 ML BY MOUTH EVERY 8 HOURS NEEDED FOR 7 DAYS active Not Available Not Available No t Available clindamycin HCl 300 mg capsule TAKE 1 CAPSULE BY MOUTH EVERY 8 HOURS 06/01 completed Not Available Not Available Not Available cefaclor 500 mg capsule 05/26 completed Not Available Not Available Not Available loperamide 2 mg capsule 2 tabs initially followed by one tab w/ each loose stool. Max 6 tabs daily. 2024 active Not Available Not Available Not Avai lable cetirizine 10 mg tablet TAKE 1 TABLET BY MOUTH ONCE DAILY active Not Available Not Available No t Available azithromyci n 250 mg tablet TAKE 2 [...] oral route as needed for 10 days. 03/26 completed Not Available Not Available Not Available levetiracet am 500 mg tablet TAKE 1 [...] EXTERNALL Y TO AFFECTED AREA(S) TWICE DAILY 03/26 completed Not Available Not Available Not Available warfarin 3 mg tablet TAKE 1 [...] TWICE DAILY WITH MEALS FOR 14 DAYS 03/26 completed Not Available Not Available Not Available terbinafine HCl 250 mg tablet TAKE [...] BY MOUTH TWICE DAILY FOR 5 DAYS 03/26 completed Not Available Not Available Not Available lisinopril 10 mg tablet 05/26 completed Not Available Not Available Not Available warfarin 5 mg tablet TAKE 3 TABLETS BY MOUTH ONCE DAILY OR DIRECTED PER DR (TOTAL DOSE IS 16 MG). INR NEEDED FOR FURTURE REFILLS active Not Available Not Available No t [...] TAKE 1 TABLET BY MOUTH ONCE DAILY -INR NEEDED FOR FUTURE REFILLS active Not Available Not Available No t [...] Available Not Available Not Available amoxicillin 875 mg-potosmaniu m clavulanate 125 mg tablet TAKE 1 [...] completed Not Available Not Available Not Available [place] Saline 0.65 % nasal spray aerosol 03/26 completed Not Available Not Available Not Available levetiracet am 1,000 mg tablet 06/25 completed Not Available Not Available Not Available Artificial Tears (glycerin-p eg) 1 %-0.3 % eye drops Apply 1 drop every day by ophthalmi c route as directed. 03/26 completed Not Available Not Available Not Available Procto-Med HC 2.5 % topical cream perineal applicator APPLY A THIN LAYER TO THE AFFECTED AREA(S) BY TOPICAL ROUTE 2-4 TIMESDAIL Y PRN 07/01 completed Not Available Not Available Not Available BinaxNOW COVID-19 Ag Self Test kit Use as Directed on the Package active Not Available Not Available No t Available Paxlovid 300 mg (150 mg x 2)-100 mg tablets in a dose pack TAKE DIRECTED BY MOUTH TWICE DAILY FOR 5 DAYS active Not Available Not Available No t Available Airsupra 90 mcg-80 mcg/actuati on HFA aerosol inhaler INHALE 2 PUFFS EVERY 4 HOURS NEEDED active Not Available Not Available No t Available Vitals Date Recorded Body height Body mass index (BMI) Body weight Body temperature Heart rate Oxygen saturation Oxygen saturation in Arterial blood by Pulse oximetry Systolic blood pressure Diastolic blood pressure Provider Name and Address Organization Details Last Updated DateTime 5 196.85 cm 54.1 kg/m2 336208. 67 g 97.7 [degF] 70 /min 97 % 97 % 129 mm[Hg] 86 mm[Hg] Shaina Moreland MA [facility] 5 15:49:41 Date Recorded Body height Body mass index (BMI) Body weight Body temperature Heart rate Systolic blood pressure Diastolic blood pressure Provider Name and Address Organization Details Last Updated DateTime 5 196.85 cm 54.5 kg/m2 223407. 04 g 97.1 [degF] 96 /min 120 mm[Hg] 84 mm[Hg] Jennifer Higgins MA [facility] 5 12:06:20 Date Recorded Body height Body mass index (BMI) Body weight Provider Name and Address Organization Details Last Updated DateTime 03/26/2025 196.85 cm 53.8 kg/m2 736159.49 g Shaina Moreland MA [facility] 03/26/2025 10:17:22 Date Recorded Body height Body mass index (BMI) Body weight Body temperature Heart rate Oxygen saturation Oxygen saturation in Arterial blood by Pulse oximetry Systolic blood pressure Diastolic blood pressure Provider Name and Address Organization Details Last Updated DateTime 4 196.85 cm 54 kg/m2 940938. 08 g 97.3 [degF] 90 /min 98 % 98 % 116 mm[Hg] 76 mm[Hg] Shaina Moreland MA [facility] 4 09:50:59 Social History Question Answer Notes LastModified by [employer] Details LastModified Time Tobacco Smoking Status Never Smoker Jennifer Higgins MA null, [facility] 12/24/2014 17:23:19 What Was The Date Of Your Most Recent Tobacco Screening? 10/29/2024 [email or web address] Information not available 10/29/2024 Sex: Male Functional Status Question Answer Note LastModified by [employer] Details LastModified Time Do you use any illicit or recreational drugs? No Information not available 02/14/2021 Do you or have you ever used any other forms of tobacco or nicotine? No Information not available 02/14/2021 What is your level of alcohol consumption? None [email or web address] Information not available 12/24/2014 Do you or have you ever used e-cigarettes or vape? Never used electronic cigarettes [email or web address] Information not available 01/21/2020 Mental Status None recorded. Family History Relationship Description Onset Age of this Age Resolved Age Notes LastModified by Organization Details LastModified Time Father Hypertensive disorder [place] [id number] Not available 06/06 12:32:11 Maternal Grandmother Malignant neoplasm of bone [facility] Not available 06/06 12:32:11 Medical History Condition Response Other Y Atrial Fibrillation Y Seizures/Epilepsy Y Immunizations Vaccine Type Date Status Note Provider Nam e and Address Organization Details Recorded Time COVID-19, mRNA, LNP-S, PF, 30 mcg/0.3 mL dose 1 completed Eros Baptiste NP-C Attn: Accounting,[address] [facility], [place], [address], [place] [facility] 06/25/2022 12:38:10 COVID-19, mRNA, LNP-S, PF, 30 mcg/0.3 mL dose 1 completed Eros Baptiste NP-C Attn: Accounting,[address] [place], [address], [place] [facility] 06/25/2022 12:38:10 Hep A, unspecified formulation 9 completed Eros Baptiste NP-C Attn: Accounting,[address] [facility], [place], [address], [place] [facility] 06/25/2022 12:38:10 Influenza, split virus, quadrivalent, preservative 6 completed Not Available [facility] 10/24/2019 02:40:55 Influenza, split virus, quadrivalent, preservative 8 completed Not Available [facility] 10/24/2019 02:36:23 Influenza, split virus, quadrivalent, preservative 9 completed Not Available [facility] 10/24/2019 02:47:54 Influenza, split virus, quadrivalent, PF 1 completed DARRYL Cornel[place], [place] - [facility] 07/17/2021 17:30:27 Tdap 2 completed Eros Baptiste NP-C Attn: Accounting,[address] [place], [address], [place] [facility] 07/03/2022 10:21:28 Influenza, split virus, quadrivalent, PF 2 completed JEN Bhatia Attn: Accounting,[address], [place], [address], [facility] - [facility] 07/03/2022 10:21:28 Influenza, split virus, quadrivalent, PF 3 completed JEN Bhatia Attn: Accounting,[address], [place], [address], [facility] - [facility] 07/09/2023 13:46:33 Influenza, split virus, trivalent, PF 4 completed DARRYL Cornelius, [place] - [facility] 08/10/2024 17:36:25 Past Encounters Encounter ID Performer Location Encounter Start Date Encounter Closed Date Diagnosis/Indication Diagnosis SNOMED-CT Code Diagnosis ICD10 Code Diagnosis Note [id number] MD [facility]ito [facility]ire [facility] ([facility]) [address] [place] [address] 09/07/2014 10:38:41 09/21/2014 03:51:04 Anticoagulant therapy 679774684 Will stop lovenox after 1pm injection today. [...] prescribed . See back in one month. [id number] MD [facility]ito [facility] ([facility]) [address] [place] [address] 12/24/2014 17:07:54 12/24/2014 17:43:45 Pain in right lower limb 152844538 R knee pain. Concern for DVT. Has his INR checked today. Will send for vascular US to rule out clot. [id number] Segundo Pressley PA-C [facility] [address] [place] [address] [address] [place] [address] 09/09/2015 16:59:46 09/09/2015 18:09:55 Infestation by Sarcoptes scabiei kevin hominis [id number] MD Junito Freire ([facility]) [address] [place] [address] 09/19/2015 11:04:05 09/20/2015 09:29:45 Anticoagulant therapy 943805254 Z79.01 Is due for INR today. Continue current dose until lab results are available. New script for stockings. F/u in 3 months. Absence seizure 57462919 G40.309 Has not seen neurology in last year. Will place referral. Continue current medication s. Continue seizure precaution s. Body mass index 40+ - severely obese 420805913 Z68.43 Will start food journaling with patient. Provided one week food journal and discussed healthy diet with exercise. Seems motivated to start losing weight. Is interested in weekly weight checks which he may do in the office. [id number] MD Junito Freire ([facility]) [address] [place] [address] 11/11/2015 09:35:38 11/14/2015 10:26:07 Knee pain 33596365 M25.[address] referral to ortho and start in physical therapy. Discussed patient's weight being a contributi ng factor to knee pain. Does walk stairs at work which might cause flare up of pain. [id number] MD Feliciano Lau ([facility]) [address] [place] [address] 02/24/2016 11:40:34 02/27/2016 09:26:25 Knee pain 87534565 M25.562 Will see if physical therapy can work both knees. Is waiting for ortho appointmen t to be reschedule d. Body mass index 40+ - severely obese 850940754 Z68.43 Will start food journaling with patient. Provided one week food journal and discussed healthy diet with exercise. Seems motivated to start losing weight. Is interested in weekly weight checks which he may do in the office. [id number] MD [facility]ito [facility] ([facility]) [address] [place] [address] 06/06/2016 12:04:54 06/07/2016 15:14:19 Obesity 526913896 E66.9 Has been participat ing in [employer]. Reports a 5 pound weight loss since starting. Will talk to cardiology about fitness. Absence seizure 88097884 G40.309 Needs medication s refilled. Concerned that he may of had some seizure activity at home. Needs to f/u with neurology, referral placed. [id number] MD Junito [facility] ([facility]) [address] [place] [address] 07/18/2016 14:10:26 07/19/2016 10:25:07 Chronic atrial fibrillation 176235461 I48.2 Continue close f/u with cardiology , will request consult notes today. Standing order for INRs. Discussed warning signs for ER. Knee pain 05365922 M25.5 62 Needs note for work. Active immunization 3387 9002 Z23 Obesity 621713254 E66.9 Has been participat ing in [employer]. 9 pound weight loss since last visit. Goal to walk a 5k in the Spring. Depression screening 171 651265 Z13.89 [id number] MD Junito Mason [facility] ([facility]) [address] [place] [address] 08/06/2016 15:59:00 08/06/2016 17:01:58 Acute upper respiratory infection 58573620 J06.9 Likely viral. Rest and fluids, tylenol as needed. May use humidifier in bedroom to help loosen sputum. Call clinic or RTC if no improvemen t in 7-10 days. [id number] MD Feliciano Lau ([facility]) [address] [place] [address] 09/10/2016 14:36:32 09/11/2016 10:29:36 Adult health examination 789273726 Z00.00 Immunizati ons are up to date. Needs labs. Body mass index 40+ - severely obese 036554734 Z68.43 Continue weight watchers program. Encouraged exercise as tolerated. Discussed walking in a pool and water aerobics to ease joints while still getting aerobic exercise. Anticoagulant therapy 18 2952761 Z79.01 Needs new stocking for DVT rpreventio n. [id number] MD Feliciano Lau ([facility]) [address] [facility] [place] [address] 01/21/2017 16:04:13 01/23/2017 11:21:52 Strain of muscle of chest wall 608754358 S29.011A Heat and ice to area. May continue tylenol for pain. May also try OTC biofreeze for pain control. Not a good candidate for muscle relaxers with chronic A. Fib and absent seizures. [id number] JEN Bhatia [facility] ([facility]) [address] [facility] [place] [address] 03/29/2017 14:44:54 04/01/2017 09:57:53 Cough 79358227 R05 Will send for CXR, concern for pneumonia. Benzonatat e for cough. Encouraged OTC medication s for fever/pain . Should increase fluids and rest. Fever 060871249 R50.9 rapid strep negative, will send for culture. Upper resp iratory infection 93420787 J06.9 [id number] JEN Bhatia e FP ([facility]) [address] [facility] [place] [address] 04/15/2017 10:51:44 04/16/2017 16:37:04 Chronic atrial fibrillation 896671745 I48.2 Continue close f/u with cardiology . Standing order for INRs. Discussed warning signs for ER. Essential hypertension 95367615 I10 Decrease lisinopril back to 5 mg daily. Goal BP less than 130/90 and greater than 100/60. History of pneumonia 161 646300 Z87.01 resolved. has completed course of antibiotic s. RTC or ER for shortness of breath or rapid heart rate/ [id number] JEN Bhatia [facility] ([facility]) [address] [facility] [place] [address] 05/01/2017 11:22:47 05/02/2017 10:28:29 Toothache 07484248 K08.89 No sign of dental abscess. Will provide lidocaine to swish and spit for additional pain control. Also encouraged ice to left side of face. Monitor for s.s of infection. Keep appointmen t with dentist. 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 Advised monitor for next month - if stasis may improve. Schambergs likely persistent and could consider bx. Any new or worrisome sx should be reevaluate d. [id number] MD Junito Rowe [facility] ([facility]) [address] [place] [address] 03/18/2018 12:03:54 03/19/2018 15:00:05 Subconjunctival hemorrhage 60175738 H11.32 [id number] JEN Bhatia [place] [facility] ([facility]) [address] [place] [address] 06/20/2018 12:08:06 07/08/2018 13:39:19 Varicose veins of lower extremity 99150657 I83.891 -Will refer to vascular surgery for further eval Toothache 15737152 K08.8 9 -Should report to ER for any additional bleeding with warfarin use.-keep close f/u with dentist Depression screening 171 789264 Z13.89 -negative screening [id number] JEN Bhatia e [facility] ([facility]) [address] [place] [address] 07/08/2018 14:46:57 07/16/2018 11:57:44 Neck pain 26842583 M54.2 -Suspect muscle strain-Mus rachael relaxers BID as needed-ROM exercises 2-3 times per day-Heat and ice for additional pain relief-RTC if no relief, to ER for worsening pain Absence seizure 59838806 G40.309 -check labs with chronic topiramate use Active or passive immunization 129607068 Z23 [id number] JEN Bhatia [facility] ([facility]) [address] [place] [address] 08/06/2018 15:57:28 08/06/2018 17:26:29 Synovial cyst of left knee 7964111354 83729 M71.22 -will send to ortho for further eval-keep close f/u with vascular surgery [id number] JEN Bhatia e FP ([facility]) [address] [place] [address] 10/06/2018 11:12:43 10/08/2018 13:31:38 Adult health examination 133970284 Z00.00 Immunizati ons are up to date.Needs labs. Body mass index 40+ - severely obese 413523976 Z68.43 Encouraged exercise as tolerated. Discussed walking in a pool and water aerobics to ease joints while still getting aerobic exercise. Chronic at rial fibrillation 236926665 I48.2 -rate controlled on beta pj -needs to see cardiology - needs new referral (will place referral for prairipb CV) Absence seizure 68144703 G40.309 -check labs with chronic topiramate use-not establishe d with neurology despite multiple referrals. Needs new referral [id number] JEN Bhatia [facility] ([facility]) [address] [place] [address] 11/20/2018 14:59:15 11/20/2018 16:22:19 Musculoskeletal pain 075790640 M79.10 -11/08 to sarita moscoso and obesity-se nd to PT [id number] JEN Bhatia e [facility] ([facility]) [address] [place] [address] 03/24/2019 12:41:22 03/27/2019 08:44:01 Pain of left shoulder joint 1827381432 7220389 M25.512 -suspect muscle strain, encouraged heat and ice and tylenol as needed for pain-guanako nue ROM exercises as tolerated. -if still bothersome after these interventi ons can send to PT Abrasion 552175103 S80.2 12A S50.312A -keep clean and dry [id number] JEN Bhatia [facility] ([facility]) [address] [place] [address] 04/13/2019 14:22:22 04/15/2019 11:11:08 Cellulitis of lower limb 007820016 L03.119 -start bactrim-wi ll be off warfarin for dental procedure and INR is normally right at 2.0, discussed risk for increased bleeding with abx use when on warfarin Chest pain 70402534 R07. 89 -If pain gets worse should report to the ER since he is high risk for CAD-keep close f/u with cardiology [id number] JEN Bhatia ([facility]) [address] [place] [address] 08/10/2019 11:32:08 08/14/2019 08:44:07 Abnormal weight gain 503021120 R63.5 -check labs-encou raged low carb diet and aerobic exercise at least 4 days a week for 30 minutes Edema of l ower extremity 108957623 R60.0 Active or passive immunization 101792474 Z23 [id number] JEN Bhatia ([facility]) [address] [place] [address] 09/17/2019 09:10:16 09/18/2019 09:04:21 Chronic atrial fibrillation 102138656 I48.20 -not rate controlled today (HR 108) and having weight gain-needs to go to a cardiologi that can offer testing, will try to refer back to [facility]-a dvised to [facility] for any new recs while new referral is pending-ad vised to report to ER for HR over 120, palpitatio ns, shortness of breath or chest pain-will order pulse ox for at home monitoring Ingrowing toenail 769037 009 L60.0 [id number] JEN Bhatia FP ([facility]) [address] [place]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
[2025-04-05 17:06] LABS: Alanine Aminotransferase 27 U/L (6-50); Albumin Level 4.3 g/dL (3.5-5.1); Alkaline Phosphatase 45 U/L (38-126); Aspartate Amino Transferase 39 U/L (17-59); Bilirubin,Total 0.9 mg/dL (0.2-1.3); Total Protein 7.7 g/dL (6.3-8.2)
== END 2025-04-05 16:19 | disposition home or self-care (01) ==
PROVIDERS: PCP Nurse Practitioner Family
DX: B35.1 Tinea unguium (principal)
CPT/HCPCS: 36415; 80076

== ENCOUNTER 2025-04-23 10:13 | Outpatient (RCR) | payer OTHER, SELFPAY ==
[2025-04-06 13:24] LABS: INR 1.6; Prothrombin Time 18.6 Seconds (11.1-14.7)
[2025-04-23 10:42] LABS: INR 2.2; Prothrombin Time 24.3 Seconds (11.1-14.7)
== END 2025-07-05 23:59 | disposition home or self-care (01) ==
LOC: ANHLAB 10:13
PROVIDERS: PCP Nurse Practitioner Family; Visit Provider Specialist
DX: Z51.81 Encounter for therapeutic drug level monitoring (principal); Z79.01 Long term (current) use of anticoagulants
CPT/HCPCS: 36415; 85610

== ENCOUNTER 2025-05-11 12:23 | Outpatient (CLI) | payer OTHER, SELFPAY ==
--- OUTSIDE RECORDS SUMMARY | 2025-05-11 12:29 | XMS_ITS | Clinical Summary ---
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 Gender Identity Not on file Sexual Orientation [...] 199.6 kg (440 lb) 10/02/2021 4:36 PM DIRECTORY COMPILER Height 198.1 cm (6' 6) 10/02/2021 4:36 PM DIRECTORY COMPILER Body Mass Index 50.85 10/02/2021 4:36 PM DIRECTORY COMPILER Plan of Treatment Health Maintenance Due Date Last Done Comments Hepatitis C Virus (HCV) Screening 1977 Hepatitis B Immunization (1 of 3 - 19+ 3-dose series) 1996 Cologuard 2022 Colonoscopy 2022 Colorectal Cancer Screening 2022 Immunochemical Fecal Occult Blood 2022 SARS-COV-2 Immunization (2023- season) 2024 05/25/2021, 05/04/2021 Influenza Immunization (#1) 06/07/202501/2024, 07/01/2023, 06/25/2022, Additional history exists Respiratory Syncytial Virus (RSV) Immunization (Adult) (1 - 1-dose 75+ series) 2052 DTaP/Tdap/Td Immunization Discontinued 06/25/2022 TdaP Immunization Completed 06/25/2022 Human Papillomavirus (HPV) Immunization Aged Out No [...] Valid 03/24/2025 2:04 PM CDT Kushal Young [facility] POINT OF CARE TESTING (MANUAL ) Final Result from Last 3 Months Insurance MEDICAID [employer] Care Teams Machine Coremaker Relationship Specialty Start Date End Date Amy Sharma APRN [address] [place] [address] PCP - General Family Medicine 08/27/16
--- OUTSIDE RECORDS SUMMARY | 2025-05-11 12:29 | XMS_ITS | Clinical Summary ---
Author Organization [facility] [employer] Address [address] [place] [address] Care Team Providers Care Gold Letterer Name Role Phone Amy Sharma APRN-[facility] Primary Care Provider Source Comments [facility],non-owned Affiliates and Associated Physician Practices is amultiple site organization consisting of ambulatory clinics and hospital sitesin [place], [place], [place] and [place]. This disclosure is being madepursuant to the Care Everywhere program and may not contain all information available regarding this patient. Last updated 18.[facility] [employer] Allergies No known active allergies Medications * Be aware that medications may not be up to date on this document. Alwaysverify current medications with the patient. digoxin (LANOXIN) 0.25 MG tablet Take 1 (one) tablet by mouth once daily Active fluticasone propionate (FLONASE) 50 MCG/ACT nasal spray [place] 1 (one) spray into each nostril as needed 02/13/2021 Active cetirizine (ZYRTEC) 10 MG tablet Take 1 (one) tablet by mouth once daily 05/12/2021 Active acetaminophen (TYLENOL) 500 MG tablet Take 1 (one) tablet by mouth every 6 hours as needed Active warfarin (COUMADIN) 5 MG tablet Take 1 (one) tablet by mouth once daily 90 tablet 4 12/19/2021 Active warfarin (COUMADIN) 3 MG tablet Take 1 (one) tablet by mouth once daily 90 tablet 4 12/19/2021 Active Calcium Carb-Cholecalci ferol (CALCIUM 500 + D3 PO) Take 600 mg by mouth 2 times daily Plus D3 20 mcg Active lisinopril (Prinivil; Zestril) 5 MG tablet Take 1 (one) tablet by mouth once daily 04/04/2022 Active metoprolol tartrate IR (Lopressor) 50 MG tablet Take 1 (one) tablet by mouth 2 times daily 05/01/2022 Active vitamin D, cholecalciferol , 50 MCG (2000 UT) tablet Take 1 (one) tablet by mouth once daily Active multivitamin daily tablet Take 1 (one) tablet by mouth daily with food Active albuterol HFA (Proventil; Ventolin; Proair) 108 (90 Base) MCG/ACT inhaler INHALE 1 TO 2 PUFFS BY MOUTH EVERY 6 HOURS NEEDED FOR WHEEZING 08/20/2023 Active sodium chloride ([place]) 0.65 % nasal spray Active topiramate (Topamax) 100 MG tabletIndicatio ns:Seizures (HCC) Take 3 (three) tablets by mouth 2 times daily 540 tablet 3 03/23/2025 Active Active Problems Problem Noted Date Diagnosed [...] Description 03/23/2025 10:00 AM CDT Office Visit [facility] - Neurology [address] [place] [address] Alicja Ray APRN-[facility] Seizures (HCC) (Primary Dx); Low vitamin D level from Last 3 Months Immunizations Immunization Administration Dates Next Due FLU VACCINE QUAD IIV4 SPLIT 0.25 ML IM ,07/08/2018,07/18/2016 INFLUENZA VACCINE, QUADR. 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 Legal Sex Male 6:00 PM EDGE CUTTING MACHINE OPERATOR Gender Identity Male 11/16/2021 10:44 AM EDGE CUTTING MACHINE OPERATOR Sexual Orientation Straight 11/16/2021 10 :44 AM EDGE CUTTING MACHINE OPERATOR Last Filed Vital Signs Vital Sign Reading [...] Description 03/23/2026 11:00 AM CDT Office Visit [facility] - [facility]rology [facility] [place] [id number] Alicja Ray APRN-AUDIT [facility] [address] [place] [address] Health Maintenance Due Date Last Done Comments [...] 05/25/2021, 05/04/2021 DEPRESSION SCREENING 10/07/2024 INFLUENZA VACCINE (#1) 2025 , 07/01/2023, 06/25/2022, Additional history exists ZOSTER VACCINE (1 of 2) 2027 LIPID TESTING 03/26/2028 03/26/2023, 06/05/2022, 10/22/2018 HIB VACCINE Aged Out No longer [...] will do gentle elbow ROM exercises. Insurance [facility] Advance Directives * Full Code (Latest Code Status on File) Date Activated Date Inactivated Comments 05/28/2022 2:25 PM 06/01/2022 12:44 PM Care Teams Gold Letterer Relationship Specialty Start Date End Date Amy Sharma APRN-[facility] [address] [facility] [address] [place], [place] [id number] PCP - General 01/03/16
--- OUTSIDE RECORDS SUMMARY | 2025-05-11 12:29 | XMS_ITS | Encounter Summary ---
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 Gender Identity Male 12/29/2020 8:06 AM CDT Sexual Orientation Straight 12/29/2020 8: 06 AM CDT documented as of this encounter Plan of Treatment Not on file documented as of this encounter Procedures Procedure Name Priority Date/Time Associated Diagnosis Comments SCAN - LABS 10/22/2024 documented in this encounter Results * SCAN - LABS (10/22/2024) us Provider Scanning Final Result documented in this encounter Visit Diagnoses Not on filedocumented in this encounter Care Teams Drop Wire Builder Relationship Specialty Start Date End Date Amy Sharma NP [address] [place] [address] PCP - General Nurse Practitioner 05/02/24 Cindi Wadsworth MD 03/30/17 documented as of this encounter
--- OUTSIDE RECORDS SUMMARY | 2025-05-11 12:29 | XMS_ITS | Encounter Summary ---
Author Organization [facility] Address [address] [place] [address] Care Team Providers Care Tile Burner Name Role Phone Cindi Wadsworth MD Primary Care Provider [phone] Agusto Smith MD Unavailable [facility] Unavailable [phone] Encounter Details Date Type Department Care Team (Latest Contact Info) Description 08/12/2018 Abstract [facility] Medical Group Naif Nunez MD Social History [...] on filedocumented in this encounter Care Teams Tile Burner Relationship Specialty Start Date End Date Cindi Wadsworth MD [address] [facility] [address] [place] [address] PCP - General 03/29/17 Agusto Smith MD Three [facility]. [facility] [address] [place] [address] Surgeon VASCULAR SURGERY 06/24/18 Ghanshyam Zepeda MD [facility]. [facility] [address] [place] [address] EP Pressure Steamer Tender CARDIOVASCULAR DISEASE 12/04/18 documented as of this encounter
--- OUTSIDE RECORDS SUMMARY | 2025-05-11 12:29 | XMS_ITS | Referral Summary ---
Author Organization [facility] Address [address] [place] [address] Care Team Providers Care Credentials Specialist Name Role Phone Cindi Wadsworth MD Unavailable Amy Sharma NP Primary Care Provider [phone] Encounters Date Type Department Care Team Description 04/29/2025 11:15 AM CDT Office Visit [facility] Cardiology [address] [facility] [address] [place] [address] Ghanshyam Jones MD Permanent atrial fibrillation (HCC) (Primary Dx) 04/26/2025 Orders Only [facility] [place] Information Management [address] [place] [address] Scanning, Provider 04/23/2025 Orders Only [facility] Information Management [address] [place] [address] Scanning, Provider 04/23/2025 Anticoagulation Visit [facility] Medical [facility] Cardiology [address] [facility] [address] [place] [address] Betina Guerrero RN Atrial fibrillation, unspecified type (HCC) (Primary Dx) 04/08/2025 Anticoagulation Visit [facility] Cardiology [address] [place] [address] Ketty Estrada RN Atrial fibrillation, unspecified type (HCC) (Primary Dx) 04/06/2025 Telephone [facility] Cardiology [address] [place] [address] Ghanshyam Jones MD 02/11/2025 Orders Only [facility] Health Information Management [address] [place] [address] Scanning, Provider 02/11/2025 Anticoagulation Visit [facility] Medical Group Cardiology [address] [facility] [address] [place] [phone] Jose King RN Atrial fibrillation, unspecified type (HCC) (Primary Dx) 02/11/2025 Telephone [facility] Medical Group Cardiology [address] [facility] [address] [place] [address] Ghanshyam Jones MD from Last 3 Months Allergies No known active allergies Medications topiramate (TOPAMAX) 100 mg tablet take 3 Tablet (300MG) by oral route 2 times every day 0 2 Active compression socks, large ([employer] DIASOX LARGE) misc wear daily and remove [...] once daily 90 tablet 1 5 Active metoprolol tartrate (LOPRESSOR) 50 mg immediate release tablet Take 1 tablet by mouth twice daily 180 tablet 5 Active warfarin (COUMADIN) 1 mg tablet TAKE 1 TABLET BY MOUTH ONCE DAILY -INR NEEDED FOR FUTURE REFILLS 90 tablet 5 Active warfarin (COUMADIN) 5 mg tablet TAKE 3 TABLETS BY MOUTH ONCE DAILY OR DIRECTED PER DR (TOTAL DOSE IS 16 MG). INR NEEDED FOR FURTURE REFILLS 270 tablet 5 Active warfarin (COUMADIN) 5 mg tablet TAKE 3 TABLETS BY MOUTH ONCE DAILY OR DIRECTED PER DR (TOTAL DAILY DOSE IS 16 MG). INR NEEDED FOR FUTURE REFILLS. 270 tablet 5 025 Discontinued warfarin (COUMADIN) 1 mg tablet TAKE 1 TABLET BY MOUTH ONCE DAILY. INR NEEDED FOR FUTURE REFILLS. 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 Gender Identity Male 12/29/2020 8:06 AM CDT Sexual Orientation Straight 12/29/2020 8: 06 AM CDT Last Filed Vital Signs Vital Sign Reading Time Taken Comments Blood Pressure 116/78 04/29/2025 11:04 AM CDT Pulse 70 04/29/2025 11:04 AM CDT Temperature 36.5 C (97.7 F) 05/02/2024 1:30 PM CDT Respiratory Rate 18 05/02/2024 1:30 PM CDT Oxygen Saturation 99% 04/29/2025 11:04 AM CDT Inhaled Oxygen Concentration - - Weight 204.1 kg (450 lb) 04/29/2025 11:04 AM CDT Height 198.1 cm (6' 6) 04/29/2025 11:04 AM CDT Body Mass Index 52 04/29/2025 11:04 AM CDT Plan of Treatment Not on file Procedures Procedure Name Priority Date/Time Associated Diagnosis Comments POCT LIPID PANEL Routine 04/29/2025 1:33 PM CDT Permanent atrial fibrillation (HCC) SCAN - LABS 04/26/2025 6:52 PM CDT SCAN - LABS 04/23/2025 PROTIME-INR Routine 04/23/2025 PROTIME-INR Routine 04/08/2025 SCAN - LABS 02/11/2025 PROTIME-INR Routine 02/11/2025 from Last 3 Months Results * (ABNORMAL) POCT lipid panel (04/29/2025 1:33 PM CDT) Cholesterol, POC 134 <200 MG/DL HDL, POC 21(A) >=40 mg/dL Triglycerides, POC 184(A) <=149 mg/dL LDL Cholesterol POC 76 <=129 mg/dL Chol/HDL Ratio, POC 3.6 NONE Non-HDL Cholesterol, POC 113 NONE mg/dL Cholesterol Total, POC 134 30 - 199 mg/dL Capillary blood 04/29/2025 1 :33 PM CDT us Ghanshyam Jones MD POINT OF CARE TEST ORDER TOM Final Result * SCAN - LABS (04/26/2025 6:52 PM CDT) us Provider Scanning Final Result * SCAN - LABS (04/23/2025) us Provider Scanning Final Result * (ABNORMAL) Protime-INR (04/23/2025) INR 2.20(A) 0.90 - 1.10 EXTERNAL LAB Blood us Historical Provider LAB BLOOD ORDERABLES Magaly l Result EXTERNAL LAB * (ABNORMAL) Protime-INR (04/08/2025) INR 1.60(A) 0.90 - 1.10 EXTERNAL LAB Blood Result [facility] Historical Provider MD LAB BLOOD ORDERABLES Edit ed Result - Final EXTERNAL LAB * SCAN - LABS (02/11/2025) Provider Scanning Final Result * (ABNORMAL) Protime-INR (02/11/2025) INR 2.30(A) 0.90 - 1.10 EXTERNAL LAB Blood 02/11/2025 Result [facility] Provider MD LAB BLOOD ORDERABLES Magaly l Result Performing Organization Address City/[facility]/ZIP Co de Phone Number EXTERNAL LAB from Last 3 Months Insurance [facility] Care Teams Credentials Specialist Relationship Specialty Start Date End Date Amy Sharma NP [address] [place] [address] PCP - General Nurse Practitioner 05/02/24 Cindi Wadsworth MD 03/30/17
--- OUTSIDE RECORDS SUMMARY | 2025-05-11 12:29 | XMS_ITS | Encounter Summary ---
Author Organization [facility] Health Address [address] [facility] [place] [address] Care Team Providers Care Filler Leaf Cutter Long Name Role Phone [facility] Primary Care Provider Encounter Details Date Type Department Care Team (Late st Contact Info) Description 02/26/2023 Telephone [facility] - Neurology [address] [facility], [place] [address] Brady Cunningham [place] [address] [place] [address] Social History Tobacco Use Types Packs/Day Years [...] Sex Assigned at Male 11/16/2021 10:44 AM 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 Legal Sex Male 6:00 PM 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 Gender Identity Male 11/16/2021 10:44 AM 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 Sexual Orientation Straight 11/16/2021 10 :44 AM 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 documented as of this encounter Functional Status [...] Description 03/23/2026 11:00 AM CDT Office Visit [facility] - Neurology [address] [place] [id number] Alicja Ray APRN-CNP [address] [place] [address] documented as of this encounter Goals Goal [...] on filedocumented in this encounter Care Teams Filler Leaf Cutter Long Relationship Specialty Start Date End Date Amy Sharma APRN-GEMMA [address] [place] [id number] PCP - General 01/03/16 documented as of this encounter
--- OUTSIDE RECORDS SUMMARY | 2025-05-11 12:29 | XMS_ITS | Encounter Summary ---
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
--- OUTSIDE RECORDS SUMMARY | 2025-05-11 12:29 | XMS_ITS | Encounter Summary ---
Author Organization [facility] Address [address] [place] [address] Phone Care Team Providers Care Senior Trial Attorney Name Role Phone Cindi Wadsworth MD Primary Care Provider [phone] Cindi Wadsworth MD Unavailable Jose Sharma MD Primary Care Provider Amy Sharma NP Primary Care Provider [phone] Encounter Details Date Type Department Care Team (Late st Contact Info) Description 02/26/2024 Orders Only [facility] Surgery [address] [facility] Advanced Medicine 8th [place] [address] [place] [address] Suellen Miller MD PhD [address] [facility] [id number] [place] [address] Varicose veins of both lower extremities with [...] on file 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 Gender Identity Male 12/29/2020 8:06 AM CDT Sexual Orientation Straight 12/29/2020 8: 06 AM CDT documented as of this encounter Plan of Treatment Not on file documented as of this encounter Visit Diagnoses Diagnosis Varicose veins of both lower extremities with pain- Primary Encounter for other preprocedural examination documented in this encounter Care Teams Senior Trial Attorney Relationship Specialty Start Date End Date Cindi Wadsworth MD PCP - General 03/30/17 04/01/24 Jose Sharma MD [address] [place] [address] PCP - General Internal Medicine 04/02/24 05/01/24 Amy Sharma NP [address] [address] PCP - General Nurse Practitioner 05/02/24 Cindi Wadsworth MD 03/30/17 documented as of this encounter
--- OUTSIDE RECORDS SUMMARY | 2025-05-11 12:29 | XMS_ITS | Encounter Summary ---
Author Organization [facility] Healthcare Address [address] [place] [address] Care Team Providers Care Auto Refinisher Name Role Phone Cindi Wadsworth MD Primary Care Provider [phone] Cindi Wadsworth MD Unavailable Jose Sharma MD Primary Care Provider Amy Sharma NP Primary Care Provider [phone] Encounter Details Date Type Department Care Team (Late st Contact Info) Description 02/18/2024 Orders Only [facility] Operating Room [address] [place] [address] Suellen Miller MD PhD [address] [facility] [id number] [place] [address] Varicose veins of both lower extremities with [...] on file 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
--- OUTSIDE RECORDS SUMMARY | 2025-05-11 12:29 | XMS_ITS | Clinical Summary ---
Author Organization [facility]uman Address [address] [place] [address] Care Team Providers Care Electrical Prospecting Engineer Name Role Phone Zachary Amy JOHNSON Primary Care Provider [phone] Allergies No known active allergies Medications fluticasone propionate (FLONASE) 50 mcg/spray Fraser, Suspension nasal inhaler USE 1 SPRAY(S) IN [...] Q 5 years 2022 INFLUENZA VACCINE (#1) 2025 , 08/10/2019, 07/08/2018, Additional history exists Care Teams Electrical Prospecting Engineer Relationship Specialty Start Date End Date Amy Sharma NP [address] [place] [address] PCP - General Nurse Practitioner Family 07/01/20
--- OUTSIDE RECORDS SUMMARY | 2025-05-11 12:29 | XMS_ITS | Clinical Summary ---
Author Organization [facility] Address [address] [place] [address] Care Team Providers Care Project Manager Retail Name Role Phone Cindi Wadsworth MD Unavailable Amy Sharma NP Primary Care Provider [phone] Allergies No known active allergies Medications topiramate [...] Description 04/29/2025 11:15 AM CDT Office Visit [facility] Cardiology [address] [place] [address] Ghanshyam Jones MD Permanent atrial fibrillation (HCC) (Primary Dx) 04/26/2025 Orders Only [facility] Health Information Management [address] [place] [address] Scanning, Provider 04/23/2025 Orders Only [facility] Health Information Management [address] [place] [address] Scanning, Provider 04/23/2025 Anticoagulation Visit [facility] Cardiology [address] [facility] [address] [place] [address] Betina Guerrero RN Atrial fibrillation, unspecified type (HCC) (Primary Dx) 04/08/2025 Anticoagulation Visit [facility] Cardiology [address] [facility] [address] [place] [address] Ketty Estrada RN Atrial fibrillation, unspecified type (HCC) (Primary Dx) 04/06/2025 Telephone [facility] Cardiology [address] [place] [address] Ghanshyam Jones MD 02/11/2025 Orders Only [facility] Health Information Management [address] [place] [address] Scanning, Provider 02/11/2025 Anticoagulation Visit [facility] Cardiology [address] [place] [address] Jose King RN Atrial fibrillation, unspecified type (HCC) (Primary Dx) 02/11/[address] 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 Gender Identity Male 12/29/2020 8:06 AM CDT [...] 04/29/2025 11:04 AM CDT Plan of Treatment Health Maintenance Due Date Last Done Comments Colon Cancer Screening-Colonoscopy 1977 Depression Screening 1977 Hepatitis C Screening 1977 Hepatitis B Screening 1995 Regular Well Visit/Exam 18-64 1995 Covid-19 Vaccine ( - season) 2024 05/25/2021, 05/04/2021 Influenza Vaccine (#1) 2025 , 07/01/2023, 06/25/2022, Additional history exists DTaP/Tdap/Td Vaccine (2 - Td or Tdap) 06/25/2032 06/25/2022 Pneumococcal vaccine <65 Aged Out No longer [...] Capillary blood 04/29/2025 1 :33 PM CDT Result [facility] Ghanshyam Jones MD POINT OF CARE TEST ORDER TOM Final Result * SCAN - LABS (04/26/2025 6:52 PM CDT) Provider Scanning Final Result * SCAN - LABS (04/23/2025) Result [facility] Provider Scanning Final Result * (ABNORMAL) Protime-INR (04/23/2025) INR 2.20(A) 0.90 - 1.10 EXTERNAL LAB Blood Result [facility] Historical Provider MD LAB BLOOD ORDERABLES Magaly l Result Performing Organization Address City/[facility]/ZIP Co de Phone Number EXTERNAL LAB * (ABNORMAL) Protime-INR (04/08/2025) INR 1.60(A) 0.90 - 1.10 EXTERNAL LAB Blood Result [facility] Historical Provider MD LAB BLOOD ORDERABLES Edit ed Result - Final EXTERNAL LAB * SCAN - LABS (02/11/2025) Result [facility] Provider Scanning Final Result * (ABNORMAL) Protime-INR (02/11/2025) INR 2.30(A) 0.90 - 1.10 EXTERNAL LAB Blood 02/11/2025 Result [facility] Historical Provider MD LAB BLOOD ORDERABLES Magaly l Result EXTERNAL LAB from Last 3 Months Insurance [facility] Member Subscriber Plan / Payer (Ef fective 2017-Present) Name:Franklin Bejarano Relation to Subscriber:Self Name:Franklin Bejarano Payer ID:[id number] (NAIC) Group ID:Not on file Type:MEDICAID RISK OTHER Address: [address] [place], [place] [id number] [place] [address] [facility] Care Teams Project Manager Retail Relationship Specialty Start Date End Date Amy Sharma NP [address] [place] [address] PCP - General Nurse Practitioner 05/02/24 Cindi Wadsworth MD 03/30/17
--- OUTSIDE RECORDS SUMMARY | 2025-05-11 12:29 | XMS_ITS | Clinical Summary ---
Author Organization [facility] Address [address] [place] [address] Care Team Providers Care Blood Bank Worker Name Role Phone Cindi Wadsworth MD Primary Care Provider [phone] Agusto Smith MD Unavailable Ghanshyam Zepeda MD Unavailable [phone] Allergies No known active allergies Medications lisinopril [...] hemorrhage of left eye 8 Atrial fibrillation ([facility]) 09/08/2014 Overview (12/15/2018): Overview: Atrial fibrillation Cardiomyopathy ([facility]) Atrial flutter ([facility]) Social History Tobacco Use Types Packs/Day Years [...] to complete this topic Insurance Care Teams Blood Bank Worker Relationship Specialty Start Date End Date Cindi Wadsworth MD [address] [facility] [address] [place] [address] PCP - General 03/29/17 Agusto Smith MD [facility] [address] [id number] Surgeon VASCULAR SURGERY 06/24/18 Ghanshyam Zepeda MD [address] [id number] EP Development Technologist CARDIOVASCULAR DISEASE 12/04/18
--- OUTSIDE RECORDS SUMMARY | 2025-05-11 12:29 | XMS_ITS | Encounter Summary ---
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 Gender Identity Male 12/29/2020 8:06 AM CDT Sexual Orientation Straight 12/29/2020 8: 06 AM CDT documented as of this encounter Plan of Treatment Not on file documented as of this encounter Procedures Procedure Name Priority Date/Time Associated Diagnosis Comments SCAN - LABS 09/10/2024 documented in this encounter Results * SCAN - LABS (09/10/2024) us Provider Scanning Final Result documented in this encounter Visit Diagnoses Not on filedocumented in this encounter Care Teams Motorcycle Police Officer Relationship Specialty Start Date End Date Amy Sharma NP [address] [place] [address] PCP - General Nurse Practitioner 05/02/24 Cindi Wadsworth MD 03/30/17 documented as of this encounter
[2025-05-11 13:11] LABS: Alanine Aminotransferase 22 U/L (6-50); Albumin Level 4.0 g/dL (3.5-5.1); Alkaline Phosphatase 71 U/L (38-126); Anion Gap 6 mmol/L (4-12); Aspartate Amino Transferase 26 U/L (17-59); Bilirubin,Total 0.6 mg/dL (0.2-1.3); Blood Urea Nitrogen 14 mg/dL (9-20); Calcium 9.0 mg/dL (8.4-10.2); Carbon Dioxide 25 mmol/L (22-30); Chloride 108 mmol/L (98-107); Cholesterol 121 mg/dL (0-200); Estimated Glomerular Filt Rate > 60; Glucose 107 mg/dL (65-110); HDL Direct 22 mg/dL; Potassium 4.3 mmol/L (3.4-5.0); Sodium 139 mmol/L (137-145); Total Protein 6.8 g/dL (6.3-8.2); Triglycerides 190 mg/dL (<150)
[2025-05-11 13:15] LABS: Hemoglobin A1C 6.0 % (<5.7)
[2025-05-11 13:53] LABS: Thyroid Stimulating Hormone Reflex 1.670 uIU/mL (0.465-4.68)
== END 2025-05-11 12:24 | disposition home or self-care (01) ==
LOC: ANHLAB 12:27
PROVIDERS: PCP Nurse Practitioner Family; Visit Provider Nurse Practitioner Family
DX: R73.9 Hyperglycemia, unspecified (principal); I10 Essential (primary) hypertension
CPT/HCPCS: 36415; 80053; 80061; 83036; 84443

== ENCOUNTER 2025-06-04 15:24 | Outpatient (CLI) | payer OTHER, SELFPAY ==
--- OUTSIDE RECORDS SUMMARY | 2025-06-04 15:30 | XMS_ITS | Encounter Summary ---
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
--- OUTSIDE RECORDS SUMMARY | 2025-06-04 15:30 | XMS_ITS | Encounter Summary ---
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
--- OUTSIDE RECORDS SUMMARY | 2025-06-04 15:30 | XMS_ITS | Encounter Summary ---
Author Organization [facility] Address [address] [place] [address] Care Team Providers Care Machine Tailer Name Role Phone Amy Sh[facility] Primary Care Provider Encounter Details Date Type Department Care Team (Late st Contact Info) Description 02/26/2023 Telephone [facility] - Neurology [address] [facility], [place] [address] Brady Cunningham APRN[place] [id number] [place] [address] Social History Tobacco Use Types Packs/Day Years [...] Sex Assigned at Male 11/16/2021 10:44 AM PROMOTIONAL DEMONSTRATOR Legal Sex Male 6:00 PM PROMOTIONAL DEMONSTRATOR Gender Identity Male 11/16/2021 10:44 AM PROMOTIONAL DEMONSTRATOR Sexual Orientation Straight 11/16/2021 10 :44 AM PROMOTIONAL DEMONSTRATOR documented as of this encounter Functional Status [...] Description 03/23/2026 11:00 AM CDT Office Visit [facility] - Neurology [address] [place] [id number] Alicja Ray APRN-CNP [address] [place] [address] documented as of this encounter Goals Goal [...] on filedocumented in this encounter Care Teams Machine Tailer Relationship Specialty Start Date End Date Amy Sharma APRN-[facility] [address] [place] [phone] PCP - General 01/03/16 documented as of this encounter
--- OUTSIDE RECORDS SUMMARY | 2025-06-04 15:30 | XMS_ITS | Clinical Summary ---
Author Organization [facility] Address [address] [place] [address] Care Team Providers Care Pharmacist Aide Name Role Phone Cindi Wadsworth MD Unavailable Amy Sharma NP Primary Care Provider [phone] Allergies No known active allergies Medications topiramate (TOPAMAX) 100 mg tablet take 3 Tablet (300MG) by oral route 2 times every day 0 03/04/2012 Active compression socks, large (MEDICOOL'S DIASOX LARGE) misc wear daily and remove at bedtime 1 each 2 06/01/2014 Active cetirizine (ZyrTEC) 10 mg tablet Take 1 tablet (10 mg total) by mouth daily 06/17/2020 Active fluticasone propionate (FLONASE) 50 mcg/actuation nasal spray Use 1 spray(s) in each nostril once daily Active cholecalciferol (VITAMIN D-3) 2000 unit tablet Take 1 tablet (2,000 Units total) by mouth daily Active digoxin (LANOXIN) 250 mcg (0.25 mg) tablet Take 1 tablet by mouth once daily 90 tablet 3 10/22/2024 Active lisinopriL (PRINIVIL,ZESTR IL) 5 mg tablet Take 1 tablet by mouth once daily 90 tablet 1 12/01/2024 Active metoprolol tartrate (LOPRESSOR) 50 mg immediate release tablet Take 1 tablet by mouth twice daily 180 tablet 03/24/2025 Active warfarin (COUMADIN) 1 mg tablet TAKE 1 TABLET BY MOUTH ONCE DAILY -INR NEEDED FOR FUTURE REFILLS 90 tablet 04/12/2025 Active warfarin (COUMADIN) 5 mg tablet TAKE 3 TABLETS BY MOUTH ONCE DAILY OR DIRECTED PER DR (TOTAL DOSE IS 16 MG). INR NEEDED FOR FURTURE REFILLS 270 tablet 04/12/2025 Active Active Problems Problem Noted Date Diagnosed Date Subconjunctival hemorrhage of left eye 8 Warfarin anticoagulation 03/14/2018 Anterior epistaxis 03/14/2018 Atrial fibrillation 09/08/2014 Overview (01/10/2017): Atrial fibrillation Encounters Date Type Department Care Team Description 04/29/2025 11:15 AM CDT Office Visit [facility] [address] [place] [address] [address] [place] [phone] Ghanshyam Jones MD Permanent atrial fibrillation (HCC) (Primary Dx) 04/26/2025 Orders Only [facility] Information Management [address] [place] [address] Scanning, Provider 04/23/2025 Orders Only [facility] Information Management [address] [place] [address] Scanning, Provider 04/23/2025 Anticoagulation Visit [facility] [address] [place] [address] [address] [place] [phone] Betina Guerrero RN Atrial fibrillation, unspecified type (HCC) (Primary Dx) 04/08/2025 Anticoagulation Visit [facility] [address] [place] [address] [address] [place] [phone] Ketty Estrada RN Atrial fibrillation, unspecified type (HCC) (Primary Dx) 04/06/2025 Telephone [facility] [address] [place] [address] [address] [place] [phone] Ghanshyam Jones MD from Last 3 Months Medical History Medical History Date Comments Seizure disorder (HCC) Seizure D isorder Adiposity Obesity Hx Other Medical Sleep Apnea, CP AP Hx Other Medical Varicose Veins Hx Other Medical RLE DVT 08/20; Comments: [facility] 09/08/2014 - Cardiomyopathy Heart disease 2011 Sleep apnea 2012 Family [...] on file 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 Gender Identity Male 12/29/2020 8:06 AM CDT [...] Covid-19 Vaccine ( season) 2024 05/25/2021, 05/04/2021 Influenza Vaccine (#1) [...] 04/23/2025 PROTIME-INR Routine 04/23/2025 PROTIME-INR Routine 04/08/2025 from Last 3 Months Results * (ABNORMAL) POCT lipid panel (04/29/2025 1:33 PM CDT) Cholesterol, POC 134 <200 MG/DL HDL, POC 21(A) >=40 mg/dL Triglycerides, POC 184(A) <=149 mg/dL LDL Cholesterol POC 76 <=129 mg/dL Chol/HDL Ratio, POC 3.6 NONE Non-HDL Cholesterol, POC 113 NONE mg/dL Cholesterol Total, POC 134 30 - 199 mg/dL Capillary blood 04/29/2025 1 :33 PM CDT Ghanshyam Jones MD POINT OF CARE TEST ORDER TOM Final Result * SCAN - LABS (04/26/2025 6:52 PM CDT) us Provider Scanning Final Result * SCAN - LABS (04/23/2025) us Provider Scanning Final Result * (ABNORMAL) Protime-INR (04/23/2025) INR 2.20(A) 0.90 - 1.10 EXTERNAL LAB Blood Historical Provider LAB BLOOD ORDERABLES Magaly l Result EXTERNAL LAB * (ABNORMAL) Protime-INR (04/08/2025) INR 1.60(A) 0.90 - 1.10 EXTERNAL LAB Blood us Historical Provider LAB BLOOD ORDERABLES Edit ed Result - Final EXTERNAL LAB from Last 3 Months Insurance [facility] Care Teams Pharmacist Aide Relationship Specialty Start Date End Date Amy Sharma NP [address] [place] [id number] PCP - General Nurse Practitioner 05/02/24 Cindi Wadsworth MD 03/30/17
--- OUTSIDE RECORDS SUMMARY | 2025-06-04 15:30 | XMS_ITS | Encounter Summary ---
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 Gender Identity Male 12/29/2020 8:06 AM CDT Sexual Orientation Straight 12/29/2020 8: 06 AM CDT documented as of this encounter Plan of Treatment Not on file documented as of this encounter Procedures Procedure Name Priority Date/Time Associated Diagnosis Comments SCAN - LABS 12/17/2024 documented in this encounter Results * SCAN - LABS (12/17/2024) us Provider Scanning Final Result documented in this encounter Visit Diagnoses Not on filedocumented in this encounter Care Teams Fish Flipper Relationship Specialty Start Date End Date Amy Sharma NP [address] [place] [address] PCP - General Nurse Practitioner 05/02/24 Cindi Wadsworth MD 03/30/17 documented as of this encounter
--- OUTSIDE RECORDS SUMMARY | 2025-06-04 15:30 | XMS_ITS | Encounter Summary ---
Author Organization [facility] Address [address] [place] [address] Phone Care Team Providers Care Operating Room Surgical Technologist Name Role Phone Cindi Wadsworth MD Primary Care Provider [phone] Cindi Wadsworth MD Unavailable Jose Sharma MD Primary Care Provider Amy Sharma NP Primary Care Provider Encounter Details Date Type Department Care Team (Late st Contact Info) Description 02/26/2024 Orders Only [facility] Medicine Surgery [address] [facility] 8th [place] [address] [place] [address] Suellen Miller MD PhD [address] [facility] [id number] [place] [address] Varicose veins of both lower extremities with [...] on file 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 Gender Identity Male 12/29/2020 8:06 AM CDT Sexual Orientation Straight 12/29/2020 8: 06 AM CDT documented as of this encounter Plan of Treatment Not on file documented as of this encounter Visit Diagnoses Diagnosis Varicose veins of both lower extremities with pain- Primary Encounter for other preprocedural examination documented in this encounter Care Teams Operating Room Surgical Technologist Relationship Specialty Start Date End Date Cindi Wadsowrth MD PCP - General 03/30/17 04/01/24 Jose Sharma MD [address] [place] [address] PCP - General Internal Medicine 04/02/24 05/01/24 Amy Sharma NP [address] [place] [address] PCP - General Nurse Practitioner 05/02/24 Cindi Wadsworth MD 03/30/17 documented as of this encounter
--- OUTSIDE RECORDS SUMMARY | 2025-06-04 15:30 | XMS_ITS | Clinical Summary ---
Author Organization [facility] Address [address] [place] [address] Care Team Providers Care Diaper Machine Tender Name Role Phone Cindi Wadsworth MD Primary Care Provider [phone] Agusto Smith MD Unavailable Ghanshyam Zepeda MD Unavailable Allergies No known active allergies Medications lisinopril [...] hemorrhage of left eye 8 Atrial fibrillation ([facility]) 09/08/2014 Overview (12/15/2018): Overview: Atrial fibrillation Cardiomyopathy ([facility]) Atrial flutter ([facility]) Social History Tobacco Use Types Packs/Day Years [...] to complete this topic Insurance Care Teams Diaper Machine Tender Relationship Specialty Start Date End Date Cindi Wadsworth MD [address] [facility] [address] [place] [address] PCP - General 03/29/17 Agusto Smith MD [facility] [address] [id number] Surgeon VASCULAR SURGERY 06/24/18 Ghanshyam Zepeda MD [address] [id number] EP Wide Area Network Systems Administrator CARDIOVASCULAR DISEASE 12/04/18
--- OUTSIDE RECORDS SUMMARY | 2025-06-04 15:30 | XMS_ITS | Encounter Summary ---
Author Organization [facility] Address [address] [place] [address] Care Team Providers Care Mgmt Analyst Name Role Phone Cindi Wadsworth MD Primary Care Provider [phone] Cindi Wadsworth MD Unavailable Jose Sharma MD Primary Care Provider Amy Sharma NP Primary Care Provider [phone] Encounter Details Date Type Department Care Team (Late st Contact Info) Description 02/18/2024 Orders Only [facility] Operating Room [address] [place] [address] Suellen Miller MD PhD [address] [facility] [id number] [place] [address] Varicose veins of both lower extremities with [...] file 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
--- OUTSIDE RECORDS SUMMARY | 2025-06-04 15:30 | XMS_ITS | Encounter Summary ---
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
--- OUTSIDE RECORDS SUMMARY | 2025-06-04 15:30 | XMS_ITS | Clinical Summary ---
Author Organization [facility] Farrah Bauman Address [address] [place] [address] Care Team Providers Care Corporate Secretary Name Role Phone Zachary Amy JOHNSON Primary Care Provider [phone] Allergies No known active allergies Medications fluticasone propionate (FLONASE) 50 mcg/spray [place], Suspension nasal inhaler USE 1 SPRAY(S) IN [...] 08/10/2019, 07/08/2018, Additional history exists Care Teams Corporate Secretary Relationship Specialty Start Date End Date Amy Sharma NP [address] [place] [address] PCP - General Nurse Practitioner Family 07/01/20
--- OUTSIDE RECORDS SUMMARY | 2025-06-04 15:30 | XMS_ITS | Encounter Summary ---
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 Gender Identity Male 12/29/2020 8:06 AM CDT Sexual Orientation Straight 12/29/2020 8: 06 AM CDT documented as of this encounter Plan of Treatment Not on file documented as of this encounter Procedures Procedure Name Priority Date/Time Associated Diagnosis Comments SCAN - LABS 05/18/2024 documented in this encounter Results * SCAN - LABS (05/18/2024) us Provider Scanning Final Result documented in this encounter Visit Diagnoses Not on filedocumented in this encounter Care Teams Brake Adjuster Relationship Specialty Start Date End Date Amy Sharma NP [address] [place] [address] PCP - General Nurse Practitioner 05/02/24 Cindi Wadsworth MD 03/30/17 documented as of this encounter
--- OUTSIDE RECORDS SUMMARY | 2025-06-04 15:30 | XMS_ITS | Encounter Summary ---
Author Organization [facility] Address [address] [place] [address] Care Team Providers Care Shank Rander Name Role Phone Cindi Wadsworth MD Primary Care Provider [phone] Agusto Smith MD Unavailable [facility] Unavailable [phone] Encounter Details Date Type Department Care Team (Latest Contact Info) Description 08/12/2018 Abstract [facility] Medical Group Naif Nunez MD Social History [...] on filedocumented in this encounter Care Teams Shank Rander Relationship Specialty Start Date End Date Cindi Wadsworth MD [address] [facility] [address] [place] [address] PCP - General 03/29/17 Agusto Smith MD Three [facility]. [facility] [address] [place] [address] Surgeon VASCULAR SURGERY 06/24/18 Ghanshyam Zepeda MD [address] [facility]. [facility] [address] [place] [address] EP Library Circulation Department Chief CARDIOVASCULAR DISEASE 12/04/18 documented as of this encounter
--- OUTSIDE RECORDS SUMMARY | 2025-06-04 15:30 | XMS_ITS | Clinical Summary ---
Author Organization [facility] [employer] Address [address] [place] [address] Care Team Providers Care Bag Maker Name Role Phone Amy Sharma APRN-[facility] Primary Care Provider Source Comments [facility],non-owned Affiliates and Associated Physician Practices is amultiple site organization consisting of ambulatory clinics and hospital sitesin [place], [place], [place] and [place]. This disclosure is being madepursuant to the Care Everywhere program and may not contain all information available regarding this patient. Last updated 18.[facility] [employer] Allergies No known active allergies Medications * Be aware that medications may not be up to date on this document. Alwaysverify current medications with the patient. digoxin (LANOXIN) 0.25 MG tablet Take 1 (one) tablet by mouth once daily Active fluticasone propionate (FLONASE) 50 MCG/ACT nasal spray [place] 1 (one) spray into each nostril as [...] NEEDED FOR WHEEZING 08/20/2023 Active sodium chloride ([place]noy) 0.65 % nasal spray Active topiramate (Topamax) [...] Description 03/23/2025 10:00 AM CDT Office Visit [facility] - Neurology [address] [facility] [place] [phone] Alicja Ray APRN-[facility] Seizures (HCC) (Primary Dx); [...] Sex Assigned at Male 11/16/2021 10:44 AM 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 Insurance [facility] Advance Directives * Full Code (Latest Code Status on File) Date Activated Date Inactivated Comments 05/28/2022 2:25 PM 06/01/2022 12:44 PM Care Teams Bag Maker Relationship Specialty Start Date End Date Amy Sharma APRN-[facility] [address] [facility] [address] [place], [place] [phone] PCP - General 01/03/16
[2025-06-04 16:11] LABS: Alanine Aminotransferase 24 U/L (6-50); Albumin Level 4.4 g/dL (3.5-5.1); Alkaline Phosphatase 66 U/L (38-126); Anion Gap 5 mmol/L (4-12); Aspartate Amino Transferase 31 U/L (17-59); Bilirubin,Total 0.8 mg/dL (0.2-1.3); Blood Urea Nitrogen 18 mg/dL (9-20); Calcium 8.9 mg/dL (8.4-10.2); Carbon Dioxide 27 mmol/L (22-30); Chloride 105 mmol/L (98-107); Cholesterol 139 mg/dL (0-200); Estimated Glomerular Filt Rate > 60; Glucose 102 mg/dL (65-110); HDL Direct 21 mg/dL; Potassium 4.1 mmol/L (3.4-5.0); Sodium 137 mmol/L (137-145); Total Protein 7.4 g/dL (6.3-8.2); Triglycerides 225 mg/dL (<150)
[2025-06-04 16:45] LABS: Hemoglobin A1C 5.9 % (<5.7)
[2025-06-04 17:54] LABS: Thyroid Stimulating Hormone Reflex 1.540 uIU/mL (0.465-4.68)
== END 2025-06-04 15:25 | disposition home or self-care (01) ==
LOC: ANHLAB 15:28
PROVIDERS: PCP Nurse Practitioner Family; Visit Provider Nurse Practitioner Family
DX: R73.9 Hyperglycemia, unspecified (principal); I10 Essential (primary) hypertension
CPT/HCPCS: 36415; 80053; 80061; 83036; 84436; 84443